=== PATIENT | female | born 1980 | race Hispanic/Latino ===

== ENCOUNTER 2017-09-09 10:42 | Emergency (ER) | payer OTHER, SELFPAY ==
--- NOTE | 2017-09-09 11:15 | RAD REPORT ---
EXAM DESCRIPTION: RAD - Chest Single View - 09/09/2017 11:10 am CLINICAL HISTORY: Syncope, shortness of breath COMPARISON: April 2017 TECHNIQUE: AP portable chest image was obtained 1103 hours . FINDINGS: Lungs are clear. Heart and vasculature are normal. No measurable pleural effusion and no p neumothorax. No gross bony abnormality seen. No acute aortic findings suspected. IMPRESSION: No acute cardiopulmonary process. No change from prior imaging.
[2017-09-09] MEDS ORDERED: NA CHLORIDE 0.9% 500 ML ONE (11:26)
[2017-09-09 11:35] LABS: Absolute Lymphocytes (CBC) 2.1 K/uL (0.7-4.9); Absolute Monocytes 0.6 K/uL (0.1-1.3); Absolute Neutrophil 5.1 K/uL (1.8-8.0); Basophils % 0.3 % (0-1.3); Eosinophils % 3.5 % (0-4.4); Hematocrit 33.8 % (36.0-45.0); Lymphocytes % 26.3 % (15.3-44.8); MCH 27.7 pg (27.0-35.0); MPV 8.2 fL (7.6-11.3); Monocytes % 6.9 % (3.3-12.3); RBC Red Blood Cell Count 4.02 M/uL (3.86-4.86)
[2017-09-09 11:57] LABS: Glucose Level 93 mg/dL (65-120)
[2017-09-09 11:58] LABS: BUN Blood Urea Nitrogen 8 mg/dL (6-20); Glomerular Filtration Rate > 90 mL/min (=/>90)
[2017-09-09 12:12] LABS: Bicarbonate 25 mEq/L (21-31); Potassium 4.1 mEq/L (3.6-5.0); Sodium Level 136 mEq/L (135-145)
[2017-09-09] MEDS ORDERED: DIAZEPAM 2 MG TABLET ONE (12:27)
--- NOTE | 2017-09-09 12:40 | RAD REPORT ---
EXAM DESCRIPTION: CT - Chest For Pe Angio - 09/09/2017 12:26 pm CLINICAL HISTORY: Syncope, chest pain, shortness of breath COMPARISON: Chest films same date, PE study March 2017 TECHNIQUE: Dynamically enhanced 3 mm thick images of the chest were obtained during administration o f approximately 150mL Isovue 370 IV contrast. Coronal and oblique reconstruction images were generate d and reviewed. Exam utilizes a protocol to evaluate the pulmonary arterial tree. All CT scans are performed using dose optimization technique as appropriate and may include automated exposure control or mA/KV adjustment according to patient size. FINDINGS: No pulmonary emboli are identified. Respiratory motion degradation limits far peripheral b ranch assessment. The aorta as imaged shows no acute or suspicious finding. No pericardial thickening or effusion. No peripheral consolidation. In the lateral gutter on the right there is a 9 millimeter nodular densi ty unchanged from March. This is likely scarring. Size is accentuated by motion. No pleural effusi on or pleural thickening. No mediastinal or hilar suspicious masses. No chest wall masses or abnormal axillary lymphadenopathy. IMPRESSION: No pulmonary emboli identified. Far peripheral branch assessment is limited due to motio n artifact. No peripheral mass or consolidation. Lung base interstitial markings are accentuated by motion. Approximately 9 millimeter nodule lateral gutter on the right is unchanged from March.This may be simply scarring or atelectasis. Malignancy would be uncommon in a patient this age. This can be monit ored with follow-up examination in 3-6 months.
[2017-09-09 13:17] LABS: Blood Morphology Comment NOT SEEN (NOT SEEN); Platelet Estimate ADEQ
--- NOTE | 2017-09-09 13:51 | EDPHYS ---
Physician Documentation [facility] Name: Ngozi Bear Age: 37 yrs Sex: Female : 1980 Arrival Date: 09/09/2017 Time: 10:43 Bed 16 Private MD: ED Physician Robin Cota HPI: 09/09 10:54 This 37 yrs old Female presents to ER via EMS with complaints of Near Syncope. rn 10:54 The patient has experienced near-syncope. Onset: The symptoms/episode began/occurred rn just prior to arrival. Duration: This was a single episode, that lasted 5 minute(s). Associated injury: The patient did not suffer any apparent associated injury. Current symptoms: Currently, the patient is not experiencing any symptoms. The patient has experienced similar episodes in the past. Reports hx of anxiety, today, went to work, felt fine, had bowel movement, felt sweaty, was standing and felt lightheaded, didn't completely pass out, feels better now, no chest pain/sob. Feels somewhat similar to previous anxiety episodes. NO abd pain. Mild pressure in back of head but no focal neurological complaints. . 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 - Family history:: not pertinent. - Social history:: Smoking status: Patient/guardian denies using tobacco. - Hospitalizations: : No recent hospitalization is reported. ROS: 10:54 Constitutional: Negative for fever, chills, and weight loss, Eyes: Negative for injury, rn pain, redness, and discharge, Neck: Negative for injury, pain, and swelling, Cardiovascular: Negative for chest pain, palpitations, and edema, Respiratory: Negative for shortness of breath, cough, wheezing, and pleuritic chest pain, Abdomen/GI: Negative for abdominal pain, nausea, vomiting, diarrhea, and constipation, Back: Negative for injury and pain, MS/Extremity: Negative for injury and deformity, Skin: Negative for injury, rash, and discoloration, Neuro: Negative for weakness, and seizure, + tingling of hands/feet Exam: 10:54 Constitutional: This is a well developed, well nourished patient who is awake, alert, rn and in no acute distress. Head/Face: Normocephalic, atraumatic. Eyes: Pupils equal round and reactive to light, extra-ocular motions intact. Lids and lashes normal. Conjunctiva and sclera are non-icteric and not injected. Cornea within normal limits. Periorbital areas with no swelling, redness, or edema. Neck: Trachea midline, no thyromegaly or masses palpated, and no cervical lymphadenopathy. Supple, full range of motion without nuchal rigidity, or vertebral point tenderness. No Meningismus. Cardiovascular: Regular rate and rhythm with a normal S1 and S2. No gallops, murmurs, or rubs. Normal PMI, no JVD. No pulse deficits. Respiratory: Lungs have equal breath sounds bilaterally, clear to auscultation and percussion. No rales, rhonchi or wheezes noted. No increased work of breathing, no retractions or nasal flaring. Abdomen/GI: Soft, non-tender, with normal bowel sounds. No distension or tympany. No guarding or rebound. No evidence of tenderness throughout. MS/ Extremity: Pulses equal, no cyanosis. Neurovascular intact. Full, normal range of motion. Equal circumference. Neuro: Awake and alert, GCS 15, oriented to person, place, time, and situation. Cranial nerves II-XII grossly intact. Motor strength 5/5 in all extremities. Sensory grossly intact. Cerebellar exam normal. 11:32 ECG was reviewed by the Attending Physician. rn Vital Signs: 10:49 BP 157 / 96; Pulse 84; Resp 20 S; Temp 98.5(TE); Pulse Ox 97% on R/A; aj1 11:24 BP 158 / 88; Pulse 102; Resp 20; Pulse Ox 99% on R/A; rb1 12:20 BP 156 / 87; Pulse 92; Resp 18; Pulse Ox 99% on R/A; rb1 13:17 BP 154 / 83; Pulse 84; Resp 19; Pulse Ox 100% on R/A; rb1 MDM: 10:45 Patient medically screened. snw 13:48 Differential Diagnosis: cardiac arrhythmia, emotional response, vasovagal episode, rn anxiety, hyperventilation, PE, anemia, dehydration. Data reviewed: vital signs, nurses notes, lab test result(s), EKG, radiologic studies, CT scan, plain films, and as a result, I will discharge patient. Counseling: I had a detailed discussion with the patient and/or guardian regarding: the historical points, exam findings, and any diagnostic results supporting the discharge/admit diagnosis, lab results, radiology results, the need for outpatient follow up, to return to the emergency department if symptoms worsen or persist or if there are any questions or concerns that arise at home. Response to treatment: the patient's symptoms have resolved after treatment, the patient's condition has returned to base line, the patient is now symptom free, patient is well hydrated. and as a result, I will discharge patient. Special discussion: I discussed with the patient/guardian in detail that at this point there is no indication for admission to the hospital. It is understood, however, that if the symptoms persist or worsen the patient needs to return immediately for re-evaluation. ED course: W/u negative, recommended outpt pcp and cardiology f/u with inverted t waves anterior leads, CT PE performed which was negative, had incidental finding of nodule, unchanged, trop neg. . 09/09 10:49 Order name: Urine Microscopic Only rn 09/09 10:49 Order name: Basic Metabolic Panel; Complete Time: 12:25 rn 09/09 10:49 Order name: CBC with Diff; Complete Time: 13:43 rn 09/09 10:49 Order name: Troponin (emerg Dept Use Only); Complete Time: 12:25 rn 09/09 10:49 Order name: XRAY Chest (1 view); Complete Time: 11:17 rn 09/09 13:18 Order name: Manual Differential; Complete Time: 13:43 EDMS 09/09 10:49 Order name: EKG; Complete Time: 10:49 rn 09/09 10:49 Order name: Cardiac monitoring; Complete Time: 11:42 rn 09/09 10:49 Order name: EKG - Nurse/Tech; Complete Time: 11:42 rn 09/09 10:49 Order name: IV Saline Lock; Complete Time: 11:42 rn 09/09 11:32 Order name: CT Chest For PE Angio; Complete Time: 12:40 rn 09/09 10:49 Order name: Labs collected and sent; Complete Time: :42 rn 09/09 10:49 Order name: NPO; Complete Time: : rn 09/09 10:49 Order name: O2 Per Protocol; Complete Time: rn 09/09 10:49 Order name: O2 Sat Monitoring; Complete Time: 11:42 rn EC:32 Rate is 80 beats/min. Rhythm is regular. QRS Staples is Normal. ID interval is normal. QRS rn interval is normal. QT interval is normal. No Q waves. T waves are Inverted in leads V1, V2, V3. No ST changes noted. Clinical impression: NSR w/ Non-specific ST/T Changes. Interpreted by me. Administered Medications: 11:30 Drug: NS 0.9% 500 ml Route: IV; Rate: bolus; Site: right antecubital; rb1 12:33 Drug: Valium 2 mg Route: PO; rb1 Disposition: 09/09/17 13:50 Discharged to Home. Impression: Hyperventilation, Near Syncope. - Condition is Stable. - Discharge Instructions: Hyperventilation, Near-Syncope. - Medication Reconciliation Form, Thank You Letter, Antibiotic Education, Prescription Opioid Use form. - Follow up: Private Physician; When: As needed; Reason: Recheck today's complaints, Re-evaluation by your physician. - Problem is new. - Symptoms have improved. Signatures: Dispatcher [employer] Hailey Landry RN RN aj1 Rena Yung, TRAIN RESERVATION CLERK-C TRAIN RESERVATION CLERK-Csnw Robin Cota MD MD rn Barber, Rebecca, RN RN rb1
--- NOTE | 2017-09-09 13:51 | ER ---
Nurse's Notes [facility] Name: Ngozi Bear Age: 37 yrs Sex: Female : 1980 Arrival Date: 09/09/2017 Time: 10:43 Bed 16 Private MD: Diagnosis: Hyperventilation;Near Syncope Presentation: 09/09 10:44 Presenting complaint: Patient states: I was at work and I suddenly started sweating and aj1 seeing murdock and I told my coworker that I didn't feel good and I was going to pass out. They sat me down in a chair and put cold rags on me. I felt like passing out and I couldn't breathe. Patient reports dizziness, anxiousness, chest tightness, epigastric pain and a feeling of "heaviness" in the back of her head. Denies syncope, palpitations. Breath sounds CTA. Transition of care: patient was not received from another setting of care. Onset of symptoms was September 09, 2017. Initial Sepsis Screen: Does the patient meet any 2 criteria? No. Patient's initial sepsis screen is negative. Does the patient have a suspected source of infection? No. Patient initial sepsis screen negative. Care prior to arrival: IV initiated. 20 GA, in the right forearm, Glucose check: 151. 10:44 Method Of Arrival: EMS: [facility] aj1 10:44 Acuity: ALEXIA 3 aj1 Triage Assessment: 10:49 General: Appears in no apparent distress. uncomfortable, Behavior is cooperative, aj1 anxious. Pain: Complains of pain in occipital area, diaphragm, left breast and epigastric area Pain does not radiate. Quality of pain is described as tightness, heaviness. Neuro: Level of Consciousness is awake, alert, obeys commands, Oriented to person, place, time, situation, Moves all extremities. Full function Speech is normal, Facial symmetry appears normal, Reports dizziness, headache occipital area, Denies syncope. Cardiovascular: Heart tones S1 S2 present Patient's skin is warm and dry. Rhythm is regular Chest pain quality is tightness is located in left chest wall epigastric area. Respiratory: Airway is patent Respiratory effort is even, unlabored, Respiratory pattern is regular, symmetrical. 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 - Family history:: not pertinent. - Social history:: Smoking status: Patient/guardian denies using tobacco. - Hospitalizations: : No recent hospitalization is reported. Screenin:45 Abuse screen: Denies threats or abuse. Nutritional screening: No deficits noted. rb1 Tuberculosis screening: No symptoms or risk factors identified. Fall Risk None identified. Assessment: 10:45 General: Appears in no apparent distress. comfortable, obese, Behavior is calm, rb1 cooperative. Pain: Complains of pain in chest Pain currently is 8 out of 10 on a pain scale. Neuro: Level of Consciousness is awake, alert, obeys commands, Oriented to person, place, time, situation. Cardiovascular: Capillary refill < 3 seconds is brisk in bilateral fingers. Respiratory: Airway is patent Respiratory effort is even, unlabored, Respiratory pattern is regular, symmetrical. GI: Reports nausea. : No signs and/or symptoms were reported regarding the genitourinary system. Derm: Skin is pink, warm \\T\\ dry. 11:55 Reassessment: Pyxis drawer failed to open when I tried to remove the Valium. Pharmacy rb1 was contacted. 12:15 Reassessment: Pharmacy is working on the Pyxis so I can get the pt. Valium. rb1 12:33 Reassessment: Patient appears in no apparent distress at this time. Patient and/or rb1 family updated on plan of care and expected duration. Pain level reassessed. Patient is alert, oriented x 3, equal unlabored respirations, skin warm/dry/pink. Vital Signs: 10:49 BP 157 / 96; Pulse 84; Resp 20 S; Temp 98.5(TE); Pulse Ox 97% on R/A; aj1 11:24 BP 158 / 88; Pulse 102; Resp 20; Pulse Ox 99% on R/A; rb1 12:20 BP 156 / 87; Pulse 92; Resp 18; Pulse Ox 99% on R/A; rb1 13:17 BP 154 / 83; Pulse 84; Resp 19; Pulse Ox 100% on R/A; rb1 ED Course: 10:43 Patient arrived in ED. aj1 10:45 Rena Yung FNP-C is [facility]. snw 10:45 Robin Cota MD is Attending Physician. snw 10:45 Patient has correct armband on for positive identification. Bed in low position. Call rb1 light in reach. Side rails up X 1. potline monitor on. Pulse ox on. NIBP on. 10:45 Maintain EMS IV. Dressing intact. Good blood return noted. Site clean \\T\\ dry. Gauge \\T\\ rb 1 site: 20 g right AC. 10:47 Triage completed. aj1 10:49 Arm band placed on. aj1 11:10 XRAY Chest (1 view) In Process Unspecified. EDMS 11:19 Christine Mercedes, RN is Primary Nurse. rb1 11:23 EKG done, by technical assoc. reviewed by Robin Cota MD. 12:25 CT completed. Patient tolerated procedure well. Patient moved to CT via stretcher. Patient moved back from CT. 12:26 CT Chest For PE Angio In Process Unspecified. EDMS 14:10 No provider procedures requiring assistance completed. IV discontinued, intact, rb1 bleeding controlled, No redness/swelling at site. Pressure dressing applied. Administered Medications: 11:30 Drug: NS 0.9% 500 ml Route: IV; Rate: bolus; Site: right antecubital; rb1 12:33 Drug: Valium 2 mg Route: PO; rb1 Outcome: 13:50 Discharge ordered by MD. rn 14:10 Patient left the ED. rb1 14:10 Discharged to home ambulatory. rb1 14:10 Condition: stable 14:10 Discharge instructions given to patient, Instructed on discharge instructions, follow up and referral plans. Demonstrated understanding of instructions, follow-up care, Prescriptions given X none Signatures: Dispatcher [employer] EDMS Hailey Lutz RN RN aj1 Rena Yung FNP-C FNP-Ebony Vasquez Roman, MD MD rn Harrell, [facility] Christine Mercedes RN RN rb1
[2017-09-09 14:14] VITALS: TEMP 98.5
[2017-09-09 14:15] VITALS: BP 158/88; O2SAT 99
[2017-09-09 14:59] LABS: Urine Specific Gravity <1.005 (1.005-1.030)
[2017-09-09 15:11] LABS: Urine Blood NEGATIVE (NEG); Urine Glucose NEGATIVE (NEG); Urine Protein NEGATIVE (NEG); Urine Specific Gravity <1.005 (1.005-1.030); Urine pH 5.5 (5.0-7.0)
[2017-09-09 15:13] LABS: Urine Bacteria <20 /HPF (<20); Urine Culture Reflex Order NOT NEEDED; Urine Mucus NS /HPF (NONE SEEN); Urine RBC <5 /HPF (NONE SEEN)
--- NOTE | 2017-09-09 16:27 | EKG ---
Test Date: 2017-09-09 Test Time: 11:36:48 Deputy County Clerk: MERARI MEASUREMENT RESULTS: Intervals: Rate: 104 FL: 140 QRSD: 84 QT: 368 QTc: 483 [place]: P: 56 FL: 140 QRS: 41 T: -3 INTERPRETIVE STATEMENTS: Sinus tachycardia ST & T wave abnormality, consider anterior ischemia Abnormal ECG Electronically Signed On 09-09-17 16:27:01 CDT by Roger Orellana
--- NOTE | 2017-09-09 16:28 | EKG ---
Test Date: 2017-09-09 Test Time: 11:17:12 Roller Inspector: JASON MEASUREMENT RESULTS: Intervals: Rate: 80 TX: 128 QRSD: 84 QT: 398 QTc: 459 [place]: P: 14 TX: 128 QRS: 17 T: 3 INTERPRETIVE STATEMENTS: Normal sinus rhythm ST & T wave abnormality, consider anterior ischemia Abnormal ECG Compared to ECG 05/18/2017 13:01:15 ST (T wave) deviation now present T-wave abnormality no longer present Prolonged QT interval no longer present Possible ischemia still present Electronically Signed On 09-09-17 16:27:32 CDT by Roger Orellana
== END 2017-09-09 14:10 | disposition home or self-care (01) ==
LOC: ER 10:42
DX: R06.4 Hyperventilation (principal); F41.9 Anxiety disorder, unspecified; F32.9 Major depressive disorder, single episode, unspecified; I10 Essential (primary) hypertension
CPT/HCPCS: 36415; 71045; 71275; 80048; 81003; 81015; 81025; 84484; 85025; 93005; 99285; Q9967

== ENCOUNTER 2018-04-04 14:25 | Emergency (ER) | payer OTHER ==
[2018-04-04 15:32] LABS: Absolute Lymphocytes (CBC) 1.3 K/uL (0.7-4.9); Absolute Monocytes 0.6 K/uL (0.1-1.3); Absolute Neutrophil 5.3 K/uL (1.8-8.0); Basophils % 0.4 % (0-1.3); Eosinophils % 3.1 % (0-4.4); Lymphocytes % 17.3 % (15.3-44.8); MCH 27.4 pg (27.0-35.0); MCV 83.2 fL (80-100); MPV 8.2 fL (7.6-11.3); Monocytes % 7.8 % (3.3-12.3); RBC Red Blood Cell Count 4.21 M/uL (3.86-4.86)
[2018-04-04 15:35] LABS: Protime INR 1.03
--- NOTE | 2018-04-04 15:38 | RAD REPORT ---
EXAM DESCRIPTION: [place] Single View04/04/2018 3:24 pm CLINICAL HISTORY: Chest pain COMPARISON: none FINDINGS: The lungs appear clear of acute infiltrate. The heart is borderline enlarged IMPRESSION: No acute abnormalities displayed
[2018-04-04 15:48] LABS: ALT/SGPT 107 U/L (12-78); AST/SGOT 89 U/L (15-37); Albumin 3.6 g/dL (3.4-5.0); Alkaline Phosphatase 102 U/L (45-117); BUN Blood Urea Nitrogen 9 mg/dL (7-18); Bicarbonate 24 mmol/L (21-32); Bilirubin Direct < 0.1 mg/dL (0-0.2); Bilirubin Total 0.2 mg/dL (0.2-1.0); Glucose Level 135 mg/dL (74-106); Magnesium 2.2 mg/dL (1.8-2.4); NT PRO-BNP 37 pg/mL (<125); Potassium 3.5 mmol/L (3.5-5.1); Protein, Total 8.6 g/dL (6.4-8.2); Sodium Level 136 mmol/L (136-145); Troponin (Emerg Dept Use Only) 0.03 ng/mL (0.0-0.045)
[2018-04-04] MEDS ORDERED: LORazepam 2 MG/ML VIAL ONE (16:17)
[2018-04-04] MEDS ORDERED: KETOROLAC 30 MG/ML INJ ONE (16:38)
--- NOTE | 2018-04-04 17:50 | EDPHYS ---
Physician Documentation [facility] Name: Ngozi Bear Age: 37 yrs Sex: Female : 1980 Arrival Date: 04/04/2018 Time: 14:28 Bed 30 Private MD: ED Physician Adolfo Koroma HPI: 04/04 16:23 This 37 yrs old Female presents to ER via Ambulatory with complaints of Chest jr8 Pain. 16:23 The patient or guardian reports chest pain that is located primarily in the substernal jr8 area. The pain radiates to the left arm. Associated signs and symptoms: Pertinent positives: None. The chest pain is described as a pressure. Duration: The patient or guardian reports multiple episodes, that are intermittent, that wax and wane. Modifying factors: The symptoms are alleviated by nothing. the symptoms are aggravated by nothing. Severity of pain: At its worst the pain was moderate in the emergency department the pain has improved. The patient has not experienced similar symptoms in the past. The patient has not recently seen a physician. Stated that she was watering and started to have chest tightness, hot flashes, and anxiety feeling. Stated that she has had panic attacks in past but were never this bad . 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 - Social history:: Smoking status: Patient/guardian denies using tobacco. - Ebola Screening: : No symptoms or risks identified at this time. ROS: 16:23 Eyes: Negative for injury, pain, redness, and discharge, ENT: Negative for injury, jr8 pain, and discharge, Neck: Negative for injury, pain, and swelling, Respiratory: Negative for shortness of breath, cough, wheezing, and pleuritic chest pain, Abdomen/GI: Negative for abdominal pain, nausea, vomiting, diarrhea, and constipation, Back: Negative for injury and pain, MS/Extremity: Negative for injury and deformity, Skin: Negative for injury, rash, and discoloration, Neuro: Negative for headache, weakness, numbness, tingling, and seizure. 16:23 Cardiovascular: Positive for chest pain. Exam: 16:23 Eyes: Pupils equal round and reactive to light, extra-ocular motions intact. Lids and jr8 lashes normal. Conjunctiva and sclera are non-icteric and not injected. Cornea within normal limits. Periorbital areas with no swelling, redness, or edema. ENT: Nares patent. No nasal discharge, no septal abnormalities noted. Tympanic membranes are normal and external auditory canals are clear. Oropharynx with no redness, swelling, or masses, exudates, or evidence of obstruction, uvula midline. Mucous membranes moist. Neck: Trachea midline, no thyromegaly or masses palpated, and no cervical lymphadenopathy. Supple, full range of motion without nuchal rigidity, or vertebral point tenderness. No Meningismus. Chest/axilla: Normal chest wall appearance and motion. Nontender with no deformity. No lesions are appreciated. Cardiovascular: Regular rate and rhythm with a normal S1 and S2. No gallops, murmurs, or rubs. Normal PMI, no JVD. No pulse deficits. Respiratory: Lungs have equal breath sounds bilaterally, clear to auscultation and percussion. No rales, rhonchi or wheezes noted. No increased work of breathing, no retractions or nasal flaring. Abdomen/GI: Soft, non-tender, with normal bowel sounds. No distension or tympany. No guarding or rebound. No evidence of tenderness throughout. Back: No spinal tenderness. No costovertebral tenderness. Full range of motion. Skin: Warm, dry with normal turgor. Normal color with no rashes, no lesions, and no evidence of cellulitis. MS/ Extremity: Pulses equal, no cyanosis. Neurovascular intact. Full, normal range of motion. Neuro: Awake and alert, GCS 15, oriented to person, place, time, and situation. Cranial nerves II-XII grossly intact. Motor strength 5/5 in all extremities. Sensory grossly intact. Cerebellar exam normal. Normal gait. Vital Signs: 14:45 BP 152 / 75; Pulse 86; Resp 18 S; Temp 99.3(O); Pulse Ox 98% on R/A; Weight 90.72 kg aa5 (R); Height 4 ft. 11 in. (149.86 cm) (R); Pain 7/10; 16:17 BP 136 / 74; Pulse 79; Resp 18; Pulse Ox 98% on R/A; Pain 2/10; mg2 17:37 BP 123 / 63; Pulse 80; Resp 18; Pulse Ox 100% 0 lpm ; Pain 0/10; mg2 18:05 BP 114 / 60; Pulse 81; Resp 18; Pulse Ox 98% on R/A; Pain 0/10; mg2 14:45 Body Mass Index 40.39 (90.72 kg, 149.86 cm) aa5 MDM: 14:49 Patient medically screened. jr8 17:47 Data reviewed: vital signs, nurses notes, lab test result(s), EKG, radiologic studies, jr8 plain films. Data interpreted: Pulse oximetry: on room air is 100 %. Interpretation: normal. 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 ED course: After Ativan and Toradol. Patient has complete resolution of symptoms. Second Troponin negative. Still needs to f/u with cardiology because of her chest X-ray and EKG. Patient good with this and will call on Friday for next appointment. Would come back if worse . 04/04 14:59 Order name: Basic Metabolic Panel; Complete Time: 15:48 04/04 14:59 Order name: CBC with Diff; Complete Time: 16:27 04/04 14:59 Order name: LFT's; Complete Time: 15:48 04/04 14:59 Order name: Magnesium; Complete Time: 15:48 04/04 14:59 Order name: NT PRO-BNP; Complete Time: 15:48 04/04 14:59 Order name: PT-INR; Complete Time: 15:49 04/04 14:59 Order name: Troponin (emerg Dept Use Only); Complete Time: 15:48 04/04 14:59 Order name: XRAY Chest (1 view); Complete Time: 15:47 04/04 14:59 Order name: EKG; Complete Time: 15:00 04/04 14:59 Order name: ESR; Complete Time: 16:27 04/04 14:59 Order name: DD; Complete Time: 15:49 04/04 16:48 Order name: Troponin (emerg Dept Use Only); Complete Time: 17:47 04/04 14:59 Order name: Cardiac monitoring; Complete Time: 15:04/04 14:59 Order name: EKG - Nurse/Tech; Complete Time: 15:04/04 14:59 Order name: IV Saline Lock; Complete Time: 15:04/04 14:59 Order name: Labs collected and sent; Complete Time: 15:04/04 14:59 Order name: O2 Per Protocol; Complete Time: 15:04/04 14:59 Order name: O2 Sat Monitoring; Complete Time: 15: Administered Medications: 16:19 Drug: Ativan 1 mg Route: IVP; Site: right antecubital; mg2 16:53 Follow up: Response: No adverse reaction; Marked relief of symptoms mg2 16:31 Drug: TORadol 30 mg Route: IVP; Site: right antecubital; mg2 16:53 Follow up: Response: No adverse reaction; Marked relief of symptoms mg2 Disposition: 04/05 11:44 Co-signature as Attending Physician, Adolfo Koroma MD. Disposition: 04/04/18 17:49 Discharged to Home. Impression: Chest pain, unspecified. - Condition is Stable. - Discharge Instructions: Nonspecific Chest Pain. - Medication Reconciliation Form, Thank You Letter, Antibiotic Education, Prescription Opioid Use, Family Work Release form. - Follow up: Roger Orellana MD; When: 1 - 2 days; Reason: Recheck today's complaints, Continuance of care, Re-evaluation by your physician. - Problem is new. - Symptoms have improved. Signatures: Dispatcher [employer] Suzan Martini, RN RN aa5 Chon Lei PA PA jr8 Adolfo Koroma MD MD Caleb Nielson RN RN mg2 Corrections: (The following items were deleted from the chart) 04/04 18:06 17:49 04/04/2018 17:49 Discharged to Home. Impression: Chest pain, unspecified. mg2 Condition is Stable. Forms are Medication Reconciliation Form, Thank You Letter, Antibiotic Education, Prescription Opioid Use. Follow up: Roger Orellana; When: 1 - 2 days; Reason: Recheck today's complaints, Continuance of care, Re-evaluation by your physician. Problem is new. Symptoms have improved. jr8
--- NOTE | 2018-04-04 17:50 | ER ---
Nurse's Notes [facility] Name: Ngozi Bear Age: 37 yrs Sex: Female : 1980 Arrival Date: 04/04/2018 Time: 14:28 Bed 30 Private MD: Diagnosis: Chest pain, unspecified Presentation: 04/04 14:43 Presenting complaint: Patient states: mid-sternal chest pain that began today. Pt also aa5 reports SOB and nausea. Pt denies cough. Transition of care: patient was not received from another setting of care. Onset of symptoms was April 04, 2018. Risk Assessment: Do you want to hurt yourself or someone else? Patient reports no desire to harm self or others. Initial Sepsis Screen: Does the patient meet any 2 criteria? No. Patient's initial sepsis screen is negative. Does the patient have a suspected source of infection? No. Patient's initial sepsis screen is negative. Care prior to arrival: None. 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 - Social history:: Smoking status: Patient/guardian denies using tobacco. - Ebola Screening: : No symptoms or risks identified at this time. Screenin:03 Abuse screen: Denies threats or abuse. Denies injuries from another. Nutritional mg2 screening: No deficits noted. Tuberculosis screening: No symptoms or risk factors identified. Fall Risk IV access (20 points). Assessment: 15:02 General: Appears in no apparent distress. comfortable, Behavior is calm, cooperative. mg2 Pain: Complains of pain in epgastric, Pain radiates to chest and left arm Pain currently is 6 out of 10 on a pain scale. Quality of pain is described as aching, Pain began gradually, 2 hours ago. Is intermittent. Neuro: Level of Consciousness is awake, alert, obeys commands, Oriented to person, place, time, situation. Neuro: Reports dizziness. Cardiovascular: Capillary refill < 3 seconds Patient's skin is warm and dry. Respiratory: Reports shortness of breath at rest Airway is patent Respiratory effort is even, unlabored, Respiratory pattern is regular, symmetrical. GI: No signs and/or symptoms were reported involving the gastrointestinal system. : No signs and/or symptoms were reported regarding the genitourinary system. EENT: No signs and/or symptoms were reported regarding the EENT system. Derm: Skin is intact, is healthy with good turgor, Skin is pink, warm \T\ dry. normal. Musculoskeletal: No signs and/or symptoms reported regarding the musculoskeletal system. 16:18 Reassessment: Patient appears in no apparent distress at this time. Patient and/or mg2 family updated on plan of care and expected duration. Pain level reassessed. Patient is alert, oriented x 3, equal unlabored respirations, skin warm/dry/pink. 17:38 Reassessment: Patient appears in no apparent distress at this time. Patient and/or mg2 family updated on plan of care and expected duration. Pain level reassessed. Patient is alert, oriented x 3, equal unlabored respirations, skin warm/dry/pink. Vital Signs: 14:45 BP 152 / 75; Pulse 86; Resp 18 S; Temp 99.3(O); Pulse Ox 98% on R/A; Weight 90.72 kg aa5 (R); Height 4 ft. 11 in. (149.86 cm) (R); Pain 7/10; 16:17 BP 136 / 74; Pulse 79; Resp 18; Pulse Ox 98% on R/A; Pain 2/10; mg2 17:37 BP 123 / 63; Pulse 80; Resp 18; Pulse Ox 100% 0 lpm ; Pain 0/10; mg2 18:05 BP 114 / 60; Pulse 81; Resp 18; Pulse Ox 98% on R/A; Pain 0/10; mg2 14:45 Body Mass Index 40.39 (90.72 kg, 149.86 cm) aa5 ED Course: 14:28 Patient arrived in ED. rg4 14:43 Arm band placed on. aa5 14:44 Triage completed. aa5 14:47 Caleb Nielson, RN is Primary Nurse. mg2 14:49 Rizwan Houston NP is PHCP. pm1 14:49 Adolfo Koroma MD is Attending Physician. pm1 14:49 Chon Lei PA is PHCP. jr8 15:04 Patient has correct armband on for positive identification. behavioral health aide on. Pulse mg2 ox on. NIBP on. 15:04 No provider procedures requiring assistance completed. Inserted saline lock: 20 gauge mg2 in right antecubital area, using aseptic technique. Blood collected. Patient maintains SpO2 saturation greater than 95% on room air. 15:18 X-ray completed. Portable x-ray completed in exam room. Patient tolerated procedure jb2 well. 15:23 XRAY Chest (1 view) In Process Unspecified. EDMS 17:49 Roger Orellana MD is Referral Physician. jr8 18:06 IV discontinued, intact, bleeding controlled, No redness/swelling at site. Pressure mg2 dressing applied. Administered Medications: 16:19 Drug: Ativan 1 mg Route: IVP; Site: right antecubital; mg2 16:53 Follow up: Response: No adverse reaction; Marked relief of symptoms mg2 16:31 Drug: TORadol 30 mg Route: IVP; Site: right antecubital; mg2 16:53 Follow up: Response: No adverse reaction; Marked relief of symptoms mg2 Outcome: 17:49 Discharge ordered by . jr8 18:06 Discharged to home ambulatory, with family. mg2 18:06 Condition: stable 18:06 Discharge instructions given to patient, family, Instructed on discharge instructions, follow up and referral plans. Demonstrated understanding of instructions, follow-up care. 18:06 Patient left the ED. mg2 Signatures: Dispatcher [employer] EDWA Shailesh Justice jb2 Suzan Weinstein, RN RN aa5 Chon Lei PA PA jr8 Rizwan Houston NP EQUIPMENT MECHANIC SPECIALIST pm1 [place] 4 Caleb Nielson RN RN mg2
[2018-04-04 18:32] VITALS: TEMP 99.3
[2018-04-04 18:36] VITALS: BP 114/60; O2SAT 98
--- NOTE | 2018-04-06 07:07 | EKG ---
Test Date: 2018-04-04 Test Time: 14:54:18 Web Retailer: MG MEASUREMENT RESULTS: Intervals: Rate: 85 WI: 152 QRSD: 88 QT: 398 QTc: 473 [place]: P: 53 WI: 152 QRS: 21 T: -1 INTERPRETIVE STATEMENTS: Normal sinus rhythm Possible Left atrial enlargement T wave abnormality, consider anterior ischemia Prolonged QT Abnormal ECG Compared to ECG 09/09/2017 11:36:48 T-wave abnormality now present Prolonged QT interval now present Sinus tachycardia no longer present ST (T wave) deviation no longer present Possible ischemia still present Electronically Signed On 04-06-18 07:03:52 REFINERY TECHNICIAN by Julio C Cartwright
== END 2018-04-04 18:06 | disposition home or self-care (01) ==
LOC: ER 14:25
DX: R07.9 Chest pain, unspecified (principal); R94.31 Abnormal electrocardiogram [ECG] [EKG]; F41.9 Anxiety disorder, unspecified; F32.9 Major depressive disorder, single episode, unspecified; I10 Essential (primary) hypertension; Z79.899 Other long term (current) drug therapy
CPT/HCPCS: 36415; 71045; 80048; 80076; 83735; 83880; 84484; 85025; 85379; 85610; 85652; 93005; 96374; 96375; 99285

== ENCOUNTER 2018-05-12 20:29 | Observation (INO) | payer OTHER ==
[2018-05-12] MEDS ORDERED: PANTOPRAZOLE 40 MG INJ ONE (23:13)
[2018-05-12] MEDS ORDERED: PANTOPRAZOLE 40MG TABLET PO ONE (23:14)
[2018-05-12 23:39] LABS: BUN Blood Urea Nitrogen 10 mg/dL (7-18); Bicarbonate 26 mmol/L (21-32); Glucose Level 113 mg/dL (74-106); Potassium 3.3 mmol/L (3.5-5.1); Sodium Level 136 mmol/L (136-145); Troponin (Emerg Dept Use Only) 0.04 ng/mL (0.0-0.045)
[2018-05-12 23:49] LABS: Absolute Lymphocytes (CBC) 2.6 K/uL (0.7-4.9); Absolute Monocytes 0.6 K/uL (0.1-1.3); Absolute Neutrophil 6.3 K/uL (1.8-8.0); Basophils % 0.4 % (0-1.3); Eosinophils % 2.4 % (0-4.4); Hematocrit 34.1 % (36.0-45.0); Lymphocytes % 26.7 % (15.3-44.8); MPV 8.1 fL (7.6-11.3); Monocytes % 6.3 % (3.3-12.3); RBC Red Blood Cell Count 4.04 M/uL (3.86-4.86)
--- NOTE | 2018-05-13 00:28 | ER ---
Nurse's Notes [facility] Name: Ngozi Bear Age: 38 yrs Sex: Female : 1980 Arrival Date: 05/12/2018 Time: 20:30 Bed 19 Private MD: Diagnosis: Chest pain, unspecified Presentation: 05/12 21:22 Presenting complaint: Patient states: dry cough x 2 days and reports now she is having aa1 pain in her chest when she coughs. Denies fever. States, "And when I walk now I get dizzy.". Transition of care: patient was not received from another setting of care. Onset of symptoms was May 10, 2018. Risk Assessment: Do you want to hurt yourself or someone else? Patient reports no desire to harm self or others. Initial Sepsis Screen: Does the patient meet any 2 criteria? No. Patient's initial sepsis screen is negative. Does the patient have a suspected source of infection? No. Patient's initial sepsis screen is negative. Care prior to arrival: None. 21:22 Method Of Arrival: Ambulatory aa1 21:22 Acuity: ALEXIA 3 aa1 Triage Assessment: 21:24 General: Appears in no apparent distress. comfortable, Behavior is calm, cooperative, aa1 appropriate for age. 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 - Social history:: Smoking status: Patient/guardian denies using tobacco. - Ebola Screening: : Patient denies exposure to infectious person Patient denies travel to an Ebola-affected area in the 21 days before illness onset. Screenin:24 Abuse screen: Denies threats or abuse. Denies injuries from another. Nutritional mg2 screening: No deficits noted. Tuberculosis screening: No symptoms or risk factors identified. Fall Risk None identified. Assessment: 22:21 General: Appears in no apparent distress. comfortable, Behavior is calm, cooperative. mg2 Pain: Complains of pain in chest Pain does not radiate. Pain currently is 3 out of 10 on a pain scale. Quality of pain is described as aching, Pain began gradually, since 2 pm Is intermittent. Neuro: Level of Consciousness is awake, alert, obeys commands, Oriented to person, place, time, situation. Cardiovascular: Capillary refill < 3 seconds Patient's skin is warm and dry. Chest pain is described as mild, Pain is 3 out of 10 on a pain scale. quality is pressure, is located in chest wall began \\T\\ 2 pm. Respiratory: Airway is patent Respiratory effort is even, unlabored, Respiratory pattern is regular, symmetrical. GI: No signs and/or symptoms were reported involving the gastrointestinal system. : No signs and/or symptoms were reported regarding the genitourinary system. EENT: No signs and/or symptoms were reported regarding the EENT system. Derm: Skin is intact, is healthy with good turgor, Skin is pink, warm \\T\\ dry. normal. Musculoskeletal: No signs and/or symptoms reported regarding the musculoskeletal system. 23:33 Reassessment: Patient appears in no apparent distress at this time. Patient and/or mg2 family updated on plan of care and expected duration. Pain level reassessed. Patient is alert, oriented x 3, equal unlabored respirations, skin warm/dry/pink. 05/13 00:58 Reassessment: Patient appears in no apparent distress at this time. Patient and/or mg2 family updated on plan of care and expected duration. Pain level reassessed. Patient is alert, oriented x 3, equal unlabored respirations, skin warm/dry/pink. patient agreed to be admitted. Vital Signs: 05/12 21:24 BP 148 / 86; Pulse 90; Resp 18; Temp 98.9(O); Pulse Ox 97% on R/A; Weight 90.72 kg; aa1 Height 4 ft. 11 in. (149.86 cm); Pain 6/10; 23:33 BP 140 / 85; Pulse 78; Resp 18; Pulse Ox 100% on R/A; Pain 3/10; mg2 05/13 00:59 BP 134 / 78; Pulse 86; Resp 18; Pulse Ox 100% on R/A; Pain 1/10; mg2 05/12 21:24 Body Mass Index 40.39 (90.72 kg, 149.86 cm) aa1 ED Course: 05/12 20:30 Patient arrived in ED. ds1 21:24 Triage completed. aa1 21:24 Arm band placed on right wrist. Patient placed in waiting room, Patient notified of aa1 wait time. 22:07 Rena Yung FNP-C is PHCP. snw 22:08 Robin Cota MD is Attending Physician. snw 22:09 Chest Pa And Lat (2 Views) XRAY In Process Unspecified. EDMS 22:17 Caleb Nielson, NEVAEH is Primary Nurse. mg2 22:24 Patient has correct armband on for positive identification. monitoring coordinator on. Pulse mg2 ox on. NIBP on. Door closed. 22:24 No provider procedures requiring assistance completed. Patient did not have IV access mg2 during this emergency room visit. Patient maintains SpO2 saturation greater than 95% on room air. 05/13 00:27 William Ibarra MD is Hospitalizing Provider. snw Administered Medications: 05/12 23:17 Drug: ProTONIX 40 mg Route: PO; mg2 05/13 00:56 Follow up: Response: No adverse reaction mg2 00:14 Drug: Aspirin Chewable Tablet 324 mg Route: PO; mg2 00:56 Follow up: Response: No adverse reaction mg2 Outcome: 00:28 Decision to Hospitalize by Provider. snw 01:48 Patient left the ED. mg2 Signatures: Dispatcher [employer] EDMS Tamica Mendez RN RN aa1 Rena Yung FNP-C FNP-Csn Palomaresi ds1 Caleb Nielson RN RN mg2 Corrections: (The following items were deleted from the chart) 05/12 22:25 21:24 Home Meds: None; aa1 mg2
--- NOTE | 2018-05-13 00:28 | EDPHYS ---
Physician Documentation [facility] Name: Ngozi Bear Age: 38 yrs Sex: Female : 1980 Arrival Date: 05/12/2018 Time: 20:30 Bed 19 Private MD: ED Physician Robin Cota HPI: 05/12 23:02 This 38 yrs old Female presents to ER via Ambulatory with complaints of Chest snw Wall Pain, Cough. 23:02 The patient or guardian reports chest pain that is located primarily in the substernal snw area, epigastric area. Onset: suddenly, at 14:00. Associated signs and symptoms: Pertinent positives: cough, nausea. The chest pain is described as burning, a pressure. Duration: The patient or guardian reports multiple episodes. Modifying factors: The symptoms are alleviated by nothing. Severity of pain: At its worst the pain was moderate. The patient has not experienced similar symptoms in the past. The patient has not recently seen a physician. 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 - Social history:: Smoking status: Patient/guardian denies using tobacco. - Ebola Screening: : Patient denies exposure to infectious person Patient denies travel to an Ebola-affected area in the 21 days before illness onset. ROS: 23:00 Constitutional: Negative for fever, chills, and weight loss, Eyes: Negative for injury, snw pain, redness, and discharge, ENT: Negative for injury, pain, and discharge, Neck: Negative for injury, pain, and swelling, Cardiovascular: Positive for chest pain, Negative for palpitations and edema, Respiratory: Negative for shortness of breath, cough, wheezing, and pleuritic chest pain. 23:00 Back: Negative for injury and pain, : Negative for injury, bleeding, discharge, and swelling, MS/Extremity: Negative for injury and deformity, Skin: Negative for injury, rash, and discoloration, Neuro: Negative for headache, weakness, numbness, tingling, and seizure. 23:00 Abdomen/GI: Positive for nausea, burning between breasts. Exam: 23:00 Constitutional: This is a well developed, well nourished patient who is awake, alert, snw and in no acute distress. Head/Face: Normocephalic, atraumatic. Eyes: Pupils equal round and reactive to light, extra-ocular motions intact. Lids and lashes normal. Conjunctiva and sclera are non-icteric and not injected. Cornea within normal limits. Periorbital areas with no swelling, redness, or edema. ENT: Nares patent. No nasal discharge, no septal abnormalities noted. Tympanic membranes are normal and external auditory canals are clear. Oropharynx with no redness, swelling, or masses, exudates, or evidence of obstruction, uvula midline. Mucous membranes moist. Neck: Trachea midline, no thyromegaly or masses palpated, and no cervical lymphadenopathy. Supple, full range of motion without nuchal rigidity, or vertebral point tenderness. No Meningismus. Chest/axilla: Normal chest wall appearance and motion. Nontender with no deformity. No lesions are appreciated. Cardiovascular: Regular rate and rhythm with a normal S1 and S2. No gallops, murmurs, or rubs. Normal PMI, no JVD. No pulse deficits. Respiratory: Lungs have equal breath sounds bilaterally, clear to auscultation and percussion. No rales, rhonchi or wheezes noted. No increased work of breathing, no retractions or nasal flaring. Abdomen/GI: Soft, non-tender, with normal bowel sounds. No distension or tympany. No guarding or rebound. No evidence of tenderness throughout. Back: No spinal tenderness. No costovertebral tenderness. Full range of motion. Skin: Warm, dry with normal turgor. Normal color with no rashes, no lesions, and no evidence of cellulitis. MS/ Extremity: Pulses equal, no cyanosis. Neurovascular intact. Full, normal range of motion. Neuro: Awake and alert, GCS 15, oriented to person, place, time, and situation. Cranial nerves II-XII grossly intact. Motor strength 5/5 in all extremities. Sensory grossly intact. Cerebellar exam normal. Normal gait. Psych: Awake, alert, with orientation to person, place and time. Behavior, mood, and affect are within normal limits. Vital Signs: 21:24 BP 148 / 86; Pulse 90; Resp 18; Temp 98.9(O); Pulse Ox 97% on R/A; Weight 90.72 kg; aa1 Height 4 ft. 11 in. (149.86 cm); Pain 6/10; 23:33 BP 140 / 85; Pulse 78; Resp 18; Pulse Ox 100% on R/A; Pain 3/10; mg2 05/13 00:59 BP 134 / 78; Pulse 86; Resp 18; Pulse Ox 100% on R/A; Pain 1/10; mg2 05/12 21:24 Body Mass Index 40.39 (90.72 kg, 149.86 cm) aa1 MDM: 05/12 22:08 Patient medically screened. tiffany 05/13 00:28 ECG:. The patient was given aspirin in the Emergency Department. Data reviewed: vital snw signs, nurses notes, lab test result(s), EKG, radiologic studies. Counseling: I had a detailed discussion with the patient and/or guardian regarding: the historical points, exam findings, and any diagnostic results supporting the discharge/admit diagnosis, the presence of at least one elevated blood pressure reading (>120/80) during this emergency department visit, lab results, radiology results, the need for further work-up and treatment in the hospital. Physician consultation: William Ibarra MD was called at 00:28, was contacted at 00:28, regarding admission, to the telemetry unit. 05/12 22:46 Order name: CBC with Diff; Complete Time: 00:07 snw 05/12 22:46 Order name: Troponin (emerg Dept Use Only); Complete Time: 23:59 snw 05/12 22:46 Order name: DD; Complete Time: 00:15 snw 05/12 22:46 Order name: Chem 7; Complete Time: 23:59 snw 05/13 00:52 Order name: Basic Metabolic Panel EDMS 05/13 00:52 Order name: Basic Metabolic Panel EDMS 05/12 21:29 Order name: Chest Pa And Lat (2 Views) XRAY snw 05/13 00:52 Order name: Lipid Profile EDMS 05/13 00:52 Order name: Lipid Profile EDMS 05/13 00:52 Order name: Troponin I EDMS 05/13 00:53 Order name: CBC with Automated Diff EDMS 05/13 00:53 Order name: CBC with Automated Diff EDMS 05/13 00:53 Order name: Troponin I EDMS 05/13 00:53 Order name: Troponin I EDMS 05/12 22:08 Order name: EKG; Complete Time: 22:08 snw 05/12 22:08 Order name: EKG - Nurse/Tech; Complete Time: 23:01 snw 05/12 22:46 Order name: SL; Complete Time: 23:17 snw 05/13 00:53 Order name: Heart Healthy EDMS 05/13 00:53 Order name: EKG Electrocardiogram EDMS 05/13 00:53 Order name: EKG Electrocardiogram EDMS 05/13 00:53 Order name: EKG Electrocardiogram EDMS Administered Medications: 05/12 23:17 Drug: ProTONIX 40 mg Route: PO; mg2 05/13 00:56 Follow up: Response: No adverse reaction mg2 00:14 Drug: Aspirin Chewable Tablet 324 mg Route: PO; mg2 00:56 Follow up: Response: No adverse reaction mg2 Disposition: 03:00 Co-signature as Attending Physician, Robin Cota MD. rn Disposition: 05/13/18 00:28 Hospitalization ordered by William Ibarra for Observation. Preliminary diagnosis is Chest pain, unspecified. - Bed requested for Telemetry/MedSurg (observation). - Status is Observation. mg2 - Condition is Stable. - Problem is new. - Symptoms are unchanged. UTI on Admission? No Signatures: Dispatcher [employer] [facility] Stephanie Agrawal RN RN kl Kern, Alissa, RN RN aa1 Estuardo Gao MD MD cha Therrien, Shelly, CRIME SCENE EXAMINER-C CRIME SCENE EXAMINER-Csnw Robin Cota MD MD rn Gardose, Michele, RN RN mg2 Corrections: (The following items were deleted from the chart) 05/12 22:25 21:24 Home Meds: None; aa1 mg2 05/13 01:07 00:28 Hospitalization Ordered by William Ibarra MD for Observation. Preliminary kl diagnosis is Chest pain, unspecified. Bed requested for Telemetry/MedSurg (observation). Status is Observation. Condition is Stable. Problem is new. Symptoms are unchanged. UTI on Admission? No. snw 01:48 01:07 05/13/2018 00:28 Hospitalization Ordered by William Ibarra MD for Observation. mg2 Preliminary diagnosis is Chest pain, unspecified. Bed requested for Telemetry/MedSurg (observation). Status is Observation. Condition is Stable. Problem is new. Symptoms are unchanged. UTI on Admission? No. kl
[2018-05-13] MEDS ORDERED: MORPHINE 4 MG/ML SYR IV PRN (00:49)
[2018-05-13] MEDS ORDERED: ACETAMINOPHEN 500 MG TAB PO PRN (00:49)
[2018-05-13] MEDS ORDERED: ALPRAZOLAM 0.25 MG TABLET PO PRN (00:49)
[2018-05-13] MEDS ORDERED: PANTOPRAZOLE 40 MG INJ IVP ONE (00:56)
[2018-05-13] MEDS ORDERED: SODIUM CHLORIDE 0.9% 10ML INJ IV PRN (00:56)
[2018-05-13 01:51] VITALS: BMI 41.7
[2018-05-13] MEDS: PANTOPRAZOLE 40 MG INJ IVP SCH ×2 (05:26→10:08)
--- NOTE | 2018-05-13 07:11 | RAD REPORT ---
EXAM DESCRIPTION: RAD - Chest Pa And Lat (2 Views) - 05/12/2018 10:11 pm CLINICAL HISTORY: Persistent dry cough, chest pain COMPARISON: April 04 TECHNIQUE: PA and lateral views of the chest were obtained. FINDINGS: The lungs are clear. Heart size is normal and central vasculature is within normal limit s. No pleural effusion or pneumothorax seen. No acute bony finding noted. No aortic abnormality. IMPRESSION: No acute cardiopulmonary process.
--- NOTE | 2018-05-13 07:42 | EKG ---
Test Date: 2018-05-12 Test Time: 22:29:02 It Communications Manager: KATELYNN MEASUREMENT RESULTS: Intervals: Rate: 92 OK: 148 QRSD: 84 QT: 388 QTc: 479 [place]: P: 52 OK: 148 QRS: 23 T: 23 INTERPRETIVE STATEMENTS: Normal sinus rhythm ST & T wave abnormality, consider anterior ischemia Abnormal ECG Compared to ECG 04/04/2018 14:54:18 ST (T wave) deviation now present T-wave abnormality no longer present Prolonged QT interval no longer present Electronically Signed On 05-13-18 07:41:45 DECISION SCIENCE ANALYST by Roger Orellana
[2018-05-13] MEDS ORDERED: REGADENOSON 0.4 MG/5 ML SYR IV ONE (08:40)
--- NOTE | 2018-05-13 08:50 | P.HP ---
Certification for Inpatient Patient admitted to: Observation With expected LOS: <2 Midnights Patient will require the following post-hospital care: None Practitioner: I am a practitioner with admitting privileges, knowledge of patient current condition, hospital course, and medical plan of care. Services: Services provided to patient in accordance with Admission requirements found in Title 42 Section 412.3 of the Code of Federal Regulations Patient History Date of Service: 05/13/18 Reason for admission: Chest pain rule out acute coronary syndrome History of Present Illness: Patient is a 38-year-old female came to the hospital with chest discomfort. Pain was mainly in the sternal region. Pain continuously got worse. Patient came to the hospital for further evaluation. Patient has had a stress test for the last year. This was negative. Patient also had a echocardiogram which also did not reveal any abnormality. It was felt that patient most likely had gastroesophageal reflux disease. Patient was discharged with a PPI. Patient takes aspirin daily. Patient's pain has improved. Plan is to continue to do an echocardiogram. Serial troponins and EKG as well. Will admit for observation. Allergies No Known Allergies Allergy (Verified 05/13/18 01:32) Home Medications: PARoxetine HCl [Paxil*] 10 mg PO BID 03/28/17 - Past Medical/Surgical History Has patient received pneumonia vaccine in the past: No Diabetic: No -: Anxiety -: Obesity -: Depression -: HTN -: Tubal Ligation 2007 -: Appendectomy Psychosocial/ Personal History: The patient is . She has 2 children. 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 moist/pink, EOMI, Sclerae nonicteric Neck: Supple, 2+ carotid pulse no bruit, No LAD, Without JVD or thyroid abnormality Respiratory: Clear to auscultation bilaterally, Normal air movement Cardiovascular: Regular rate/rhythm, Normal S1 S2, No murmurs Gastrointestinal: Normal bowel sounds, Soft and benign, Non-distended, No tenderness Musculoskeletal: No clubbing, No swelling, No tenderness Integumentary: No rashes Neurological: Normal gait, Normal speech, Normal strength at 5/5 x4 extr, Normal tone, Sensation intact, Cranial nerves 3-12 intact, Normal affect Lymphatics: No axilla or inguinal lymphadenopathy - Studies Laboratory Data (last 24 hrs) 05/12/18 23:05: Sodium 136, Potassium 3.3 L, BUN 10, Creatinine 0.70, Glucose 113 H 05/12/18 23:05: WBC 9.8, Hgb 11.3 L, Hct 34.1 L, Plt Count 247 Assessment & Plan - Problems (Diagnosis) (1) GERD (gastroesophageal reflux disease) Current Visit: No Status: Chronic Qualifiers: Esophagitis presence: without esophagitis Qualified Code(s): K21.9 - Gastro -esophageal reflux disease without esophagitis (2) Obesity Current Visit: No Status: Chronic Qualifiers: Obesity type: due to excess calories Obesity classification: adult class 2 (BMI 35 ? 39.9) Serious obesity comorbidity presence: without serious comorbidity Body mass index: BMI 37.0-37.9 Qualified Code(s): E66.09 - Other obesity due to excess calories; Z68.37 - Body mass index (BMI) 37.0-37.9, adult; Z68.37 - Body mass index (BMI) 37.0-37.9, adult (3) Obstructive sleep apnea Current Visit: No Status: Chronic (4) Chest pain Current Visit: No Status: Ruled-out Qualifiers: Chest pain type: other chest pain Qualified Code(s): R07.89 - Other chest pain; R07.8 - Other chest pain - Plan 1. Serial troponins and EKG 2. Outpt GI consultation 3. Echocardiogram and lipid profile 4. Anti-platelet therapy, anti coagulation, beta-allen, statin, and O2 as needed 5. IV morphine for pain 6. Nitro p.r.n. Discharge Plan: Home Plan to discharge in: 24 Hours - Advance Directives Does patient have a Living Will: No Does patient have a Durable POA for Healthcare: No - Code Status/Comfort Care Code Status Assessed: Yes Code Status: Full Code Critical Care: No Time Spent Managing PTS Care (In Minutes): 50
[2018-05-13] MEDS ORDERED: ASPIRIN EC 81 MG TAB PO SCH (09:00)
[2018-05-13] MEDS ORDERED: METOPROLOL TAR 50 MG TAB PO SCH (09:00)
[2018-05-13] MEDS ORDERED: ENOXAPARIN 40 MG/0.4 ML SQ SCH (09:00)
[2018-05-13 13:35] VITALS: O2SAT 97
--- NOTE | 2018-05-13 14:35 | RAD REPORT ---
EXAM DESCRIPTION: NM - Rest Stress Cardiac Imaging - 05/13/2018 2:30 pm CLINICAL HISTORY: CP Chest pain. COMPARISON: No comparisons TECHNIQUE: The patient was administered approximately 10mCi of Tc 99m Sestamibi prior to resting SPE CT imaging of the heart. The patient was then administered approximately 30 mCi of Tc 99m Sestamibi f ollowing exercise or pharmacologic stress. Multiplanar SPECT images were reviewed. FINDINGS: No stress induced ischemic defect is seen to suggest stress induced ischemia. Small fixed defect is seen in the LV apex with rest and stress, likely representing scar tissue from prior infarc tion. The end diastolic volume is 89 ml, the end systolic volume is 48 ml, and the ejection fraction is 47 %. IMPRESSION: No stress induced ischemia. Small focal area of scarring suspected LV apex.
[2018-05-13 15:11] VITALS: BP 126/62; TEMP 97.8
--- NOTE | 2018-05-13 15:30 | ECHO ---
HEIGHT: 4 ft 11 in WEIGHT: 206 lb 0 oz DATE OF STUDY: 05/13/[address]: Haley Sifuentes MD 2-DIMENSIONAL: YES M.MODE: YES DOPPLER: YES COLOR FLOW: YES TDS: PORTABLE: DEFINITY: BUBBLE STUDY: DIAGNOSIS: CHEST PAIN CARDIAC HISTORY: CATHERIZATION: NO SURGERY: NO PROSTHETIC VALVE: NO PACEMAKER: NO MEASUREMENTS (cm) DIASTOLIC (NORMALS) SYSTOLIC (NORMALS) IVSd 1.1 (0.6-1.2) LA Diam 3.7 (1.9-4.0) LVEF 61% LVIDd 5.2 (3.5-5.7) LVIDs 3.5 (2.0-3.5) %FS 33% LVPWd 1.0 (0.6-1.2) Ao Diam 2.8 (2.0-3.7) 2 DIMENSIONAL ASSESSMENT: RIGHT ATRIUM: NORMAL LEFT ATRIUM: NORMAL RIGHT VENTRICLE: NORMAL LEFT VENTRICLE: NORMAL TRICUSPID VALVE: NORMAL MITRAL VALVE: NORMAL PULMONIC VALVE: NORMAL AORTIC VALVE: NORMAL PERICARDIAL EFFUSION: NONE AORTIC ROOT: NORMAL LEFT VENTRICULAR WALL MOTION: DOPPLER/COLOR FLOW: PHYSIOLOGIC TRICUSPID REGURGITATION. COMMENTS: NORMAL TWO DIMENSIONAL ECHOCARDIOGRAM WITH DOPPLER. TECHNOLOGIST: KYLAH BAEZ.
--- NOTE | 2018-05-13 15:41 | TREADPHA ---
DX: CHEST PAIN Date of Study: 05/13/2018 Ht: 4 11 Wt: 206 lb 0 oz Consulting Physician: DR. BARRERA MEDICATIONS: TYLENOL, ASPIRIN, LOVENOX, LOPRESSOR, PROTONIX HISTORY: 38 YEAR OLD FEMALE WITH COMPLAINTS OF CHEST PAIN. MEDICAL HISTORY: HYPERTENSION, DEPRESSION, ANXIETY. PHYSICIAL EXAMINATION: RESTING B.P.: 133/88 RESTING H.R.: 78 RESTING EKG: SINUS RHYTHM, ANTERIOR T WAVE INVERSION. PROTOCOL: LEXISCAN EXERCISE TIME: 3:30 B.P. AT PEAK STRESS: 128/86 IMPRESSION: LEXISCAN INJECTED, CARDIOLITE INJECTED PER PROTOCOL. SEE NUCLEAR MEDICINE REPORT. NO SUPRAVENTRICULAR TACHYCARDIA. NO VENTRICULAR TACHYCARDIA. NO PREMATURE VENTRICULAR COMPLEXES. DENIED CHEST PAIN. NONDIAGNOSTIC EXERCISE LEXISCAN STRESS.
== END 2018-05-13 15:50 | disposition home or self-care (01) ==
LOC: ER 20:29 → ERHOLD 05-13 00:49 → 2ND 05-13 01:32
PROVIDERS: ADMIT Hospitalist; ATTEND Hospitalist
DX: R07.9 Chest pain, unspecified (principal); F41.8 Other specified anxiety disorders; E66.9 Obesity, unspecified; Z68.41 Body mass index [BMI] 40.0-44.9, adult; I10 Essential (primary) hypertension; K21.9 Gastro-esophageal reflux disease without esophagitis; G47.33 Obstructive sleep apnea (adult) (pediatric)
CPT/HCPCS: 36415; 71046; 78452; 80048; 80061; 84484; 85025; 85379; 93005; 93017; 93306; 99284; A9500; C9113; G0378; J1650; J2785

== ENCOUNTER 2018-05-27 00:38 | Emergency (ER) | payer OTHER ==
[2018-05-27 01:15] LABS: Absolute Lymphocytes (CBC) 2.6 K/uL (0.7-4.9); Absolute Monocytes 0.6 K/uL (0.1-1.3); Absolute Neutrophil 4.4 K/uL (1.8-8.0); Basophils % 0.4 % (0-1.3); Eosinophils % 4.3 % (0-4.4); Lymphocytes % 32.5 % (15.3-44.8); Monocytes % 8.1 % (3.3-12.3)
[2018-05-27 01:18] LABS: Protime INR 1.28
[2018-05-27 01:42] LABS: ALT/SGPT 122 U/L (12-78); AST/SGOT 75 U/L (15-37); Albumin 3.4 g/dL (3.4-5.0); Alkaline Phosphatase 77 U/L (45-117); BUN Blood Urea Nitrogen 8 mg/dL (7-18); Bicarbonate 26 mmol/L (21-32); Bilirubin Direct 0.2 mg/dL (0-0.2); Bilirubin Total 0.3 mg/dL (0.2-1.0); Glucose Level 104 mg/dL (74-106); Magnesium 1.9 mg/dL (1.8-2.4); NT PRO-BNP 44 pg/mL (<125); Potassium 3.3 mmol/L (3.5-5.1); Protein, Total 7.9 g/dL (6.4-8.2); Sodium Level 141 mmol/L (136-145); Troponin (Emerg Dept Use Only) 0.02 ng/mL (0.0-0.045)
--- NOTE | 2018-05-27 01:59 | EDPHYS ---
Physician Documentation [facility] Name: Ngozi Bear Age: 38 yrs Sex: Female : 1980 Arrival Date: 05/27/2018 Time: 00:39 Bed 14 Private MD: Jeane Mitchell C ED Physician Tony Garcia HPI: 05/27 01:08 This 38 yrs old Female presents to ER via Ambulatory with complaints of Chest pkl Pain - rad to left arm. 01:08 The patient or guardian reports chest pain that is located primarily in the substernal pkl area. Onset: just prior to arrival, 1 hour(s) ago. The pain radiates to the left arm. Associated signs and symptoms: The patient has no apparent associated signs or symptoms. The chest pain is described as Tightness. The patient has experienced a previous episode, last month, Awaiting appointment with site safety coordinator. 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 - Social history:: Smoking status: Patient/guardian denies using tobacco, Patient uses alcohol, but reports only rare drinking. - Ebola Screening: : No symptoms or risks identified at this time. ROS: 01:08 Eyes: Negative for injury, pain, redness, and discharge, ENT: Negative for injury, pkl pain, and discharge, Neck: Negative for injury, pain, and swelling. 01:08 Cardiovascular: Positive for chest pain. 01:08 Respiratory: Negative for cough, shortness of breath. 01:08 Abdomen/GI: Negative for abdominal pain, nausea, vomiting, and diarrhea. 01:08 Back: Negative for acute changes. 01:08 : Negative for urinary symptoms. 01:08 MS/extremity: Negative for acute changes. 01:08 Skin: Negative for rash. 01:08 Neuro: Negative for altered mental status. Exam: 01:08 Head/Face: Normocephalic, atraumatic. Eyes: Pupils equal round and reactive to light, pkl extra-ocular motions intact. Lids and lashes normal. Conjunctiva and sclera are non-icteric and not injected. Cornea within normal limits. Periorbital areas with no swelling, redness, or edema. ENT: Nares patent. No nasal discharge, no septal abnormalities noted. Tympanic membranes are normal and external auditory canals are clear. Oropharynx with no redness, swelling, or masses, exudates, or evidence of obstruction, uvula midline. Mucous membranes moist. Neck: Trachea midline, no thyromegaly or masses palpated, and no cervical lymphadenopathy. Supple, full range of motion without nuchal rigidity, or vertebral point tenderness. No Meningismus. Chest/axilla: Normal chest wall appearance and motion. Nontender with no deformity. No lesions are appreciated. Cardiovascular: Regular rate and rhythm with a normal S1 and S2. No gallops, murmurs, or rubs. Normal PMI, no JVD. No pulse deficits. Respiratory: Lungs have equal breath sounds bilaterally, clear to auscultation and percussion. No rales, rhonchi or wheezes noted. No increased work of breathing, no retractions or nasal flaring. Abdomen/GI: Soft, non-tender, with normal bowel sounds. No distension or tympany. No guarding or rebound. No evidence of tenderness throughout. Back: No spinal tenderness. No costovertebral tenderness. Full range of motion. Skin: Warm, dry with normal turgor. Normal color with no rashes, no lesions, and no evidence of cellulitis. MS/ Extremity: Pulses equal, no cyanosis. Neurovascular intact. Full, normal range of motion. Neuro: Awake and alert, GCS 15, oriented to person, place, time, and situation. Cranial nerves II-XII grossly intact. Motor strength 5/5 in all extremities. Sensory grossly intact. Cerebellar exam normal. Normal gait. Vital Signs: 00:39 BP 134 / 81; Pulse 98; Resp 16; Temp 98.8(O); Pulse Ox 98% on R/A; Weight 90.72 kg (R); jb4 Height 4 ft. 11 in. (149.86 cm) (R); Pain 7/10; 02:00 BP 109 / 66; Pulse 76; Resp 16; Pulse Ox 100% on R/A; jb4 00:39 Body Mass Index 40.39 (90.72 kg, 149.86 cm) jb4 MDM: 01:02 Patient medically screened. pkl 01:53 Data reviewed: vital signs, nurses notes, lab test result(s), EKG, radiologic studies, pkl plain films. ED course: Discussed lab. EKG and X' rays results with patient. Advised US gallbladder and liver as outpatient with PCP and schedule appointment with Dr. Damon ( Men'S Furnishings Salesperson ) regarding elevated liver functions. Patient understood instructions.. 05/27 00:50 Order name: Basic Metabolic Panel; Complete Time: bb 05/27 00:50 Order name: CBC with Diff; Complete Time: bb 05/27 00:50 Order name: LFT's; Complete Time: bb 05/27 00:50 Order name: Magnesium; Complete Time: bb 05/27 00:50 Order name: NT PRO-BNP; Complete Time: bb 05/27 00:50 Order name: PT-INR; Complete Time: bb 05/27 00:50 Order name: Troponin (emerg Dept Use Only); Complete Time: :46 bb 05/27 00:50 Order name: XRAY Chest (1 view) bb 05/27 00:50 Order name: EKG; Complete Time: 00:51 bb 05/27 00:50 Order name: Cardiac monitoring; Complete Time: : bb 05/27 00:50 Order name: EKG - Nurse/Tech; Complete Time: : 05/27 01:11 Order name: D-Dimer; Complete Time: :46 EDVA 05/27 00:50 Order name: IV Saline Lock; Complete Time: : bb 05/27 00:50 Order name: Labs collected and sent; Complete Time: : bb 05/27 00:50 Order name: O2 Per Protocol; Complete Time: :05/27 00:50 Order name: O2 Sat Monitoring; Complete Time: 01:00 bb Administered Medications: No medications were administered Disposition: 05/27/18 01:59 Discharged to Home. Impression: Chest pain. Elevated liver functions. - Condition is Stable. - Prescriptions for Ultram 50 mg Oral Tablet - take 1 tablet by ORAL route every 8 hours As needed; 20 tablet. - Medication Reconciliation Form, Thank You Letter, Antibiotic Education, Prescription Opioid Use form. - Follow up: Private Physician; When: 1 - 2 days; Reason: Re-evaluation by your physician. - Problem is new. - Symptoms have improved. Signatures: Dispatcher [employer] [facility] Tony Garcia MD MD pkl Jodi Maurice, RN RN René Mark RN RN jb4 Corrections: (The following items were deleted from the chart) 01:11 01:08 D-DIMER+[id number].LAB.BRZ ordered. [facility] 02:24 01:59 05/27/2018 01:59 Discharged to Home. Impression: Chest pain. Elevated liver jb4 functions. Condition is Stable. Forms are Medication Reconciliation Form, Thank You Letter, Antibiotic Education, Prescription Opioid Use. Follow up: Private Physician; When: 1 - 2 days; Reason: Re-evaluation by your physician. Problem is new. Symptoms have improved. pkl
--- NOTE | 2018-05-27 01:59 | ER ---
Nurse's Notes [facility] Name: Ngozi Bear Age: 38 yrs Sex: Female : 1980 Arrival Date: 05/27/2018 Time: 00:39 Bed 14 Private MD: Jeane Stanley C Diagnosis: Chest pain. 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 jb4 It radiates to my left arm and it is tingling and numb. It is also making me nauseous. Transition of care: patient was not received from another setting of care. Onset of symptoms was May 27, 2018. Risk Assessment: Do you want to hurt yourself or someone else? Patient reports no desire to harm self or others. Initial Sepsis Screen: Does the patient meet any 2 criteria? HR > 90 bpm. Yes Does the patient have a suspected source of infection? No. Patient's initial sepsis screen is negative. Care prior to arrival: None. 00:39 Method Of Arrival: Ambulatory jb4 00:39 Acuity: ALEXIA 3 jb4 Triage Assessment: 00:39 General: Appears in no apparent distress. uncomfortable, Behavior is cooperative, jb4 appropriate for age, anxious. Pain: Complains of pain in chest Pain radiates to left arm Pain currently is 7 out of 10 on a pain scale. Quality of pain is described as pressure, Pain began 30 min ago. Is intermittent. EENT: No signs and/or symptoms were reported regarding the EENT system. Neuro: Level of Consciousness is awake, alert, obeys commands, Oriented to person, place, time, situation. Cardiovascular: Heart tones S1 S2 present Patient's skin is warm and dry. Rhythm is sinus rhythm. Respiratory: Airway is patent Respiratory effort is even, unlabored, Respiratory pattern is regular, symmetrical, Breath sounds are clear bilaterally. GI: Reports nausea. : No signs and/or symptoms were reported regarding the genitourinary system. Derm: Skin is intact, Skin is pink, warm \T\ dry. Musculoskeletal: Circulation, motion, and sensation intact. Reports numbness in left arm Tingling in the left arm. 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 - Social history:: Smoking status: Patient/guardian denies using tobacco, Patient uses alcohol, but reports only rare drinking. - Ebola Screening: : No symptoms or risks identified at this time. Screenin:39 Abuse screen: Denies threats or abuse. Nutritional screening: No deficits noted. jb4 Tuberculosis screening: No symptoms or risk factors identified. Fall Risk None identified. Assessment: 00:39 General: see triage assessment.. Pain: Complains of pain in chest Pain radiates to left jb4 arm. 02:00 Reassessment: Patient appears in no apparent distress at this time. Patient and/or jb4 family updated on plan of care and expected duration. Pain level reassessed. Patient is alert, oriented x 3, equal unlabored respirations, skin warm/dry/pink. Vital Signs: 00:39 BP 134 / 81; Pulse 98; Resp 16; Temp 98.8(O); Pulse Ox 98% on R/A; Weight 90.72 kg (R); jb4 Height 4 ft. 11 in. (149.86 cm) (R); Pain 7/10; 02:00 BP 109 / 66; Pulse 76; Resp 16; Pulse Ox 100% on R/A; jb4 00:39 Body Mass Index 40.39 (90.72 kg, 149.86 cm) 4 ED Course: 00:39 Patient arrived in ED. am2 00:39 RACIEL STANLEY is Private Physician. am2 00:39 Jeane Stanley FNP is Private Physician. am2 00:39 Arm band placed on left wrist. EKG completed in triage. Results shown to MD. jb4 00:39 Patient has correct armband on for positive identification. Placed in gown. Bed in low jb4 position. Call light in reach. Side rails up X 1. decision support analyst on. Pulse ox on. NIBP on. 00:39 Patient maintains SpO2 saturation greater than 95% on room air. jb4 00:45 Initial lab(s) drawn, by ED staff, sent to lab. Inserted saline lock: 20 gauge in right jb4 antecubital area, using aseptic technique. Blood collected. 00:47 René Zuniga, RN is Primary Nurse. jb4 00:48 Triage completed. jb4 01:01 Tony Garcia MD is Attending Physician. pkl 01:13 XRAY Chest (1 view) In Process Unspecified. EDMS 02:23 No provider procedures requiring assistance completed. IV discontinued, intact, jb4 bleeding controlled. Administered Medications: No medications were administered Outcome: 01:59 Discharge ordered by . pkl 02:24 Discharged to home ambulatory, with family. jb4 02:24 Condition: stable 02:24 Discharge instructions given to patient, family, Instructed on discharge instructions, follow up and referral plans. medication usage, Demonstrated understanding of instructions, follow-up care, medications, Prescriptions given X 1. 02:24 Patient left the ED. jb4 Signatures: Dispatcher [employer] EDOR Tony Garcia MD MD pkl Bryson, James, RN RN jb4 Rosalinda Allen am2
[2018-05-27 03:58] VITALS: TEMP 98.8
[2018-05-27 04:00] VITALS: BP 109/66; O2SAT 100
--- NOTE | 2018-05-27 07:56 | EKG ---
Test Date: 2018-05-27 Test Time: 00:45:37 Awning Craftsperson: KATELYNN MEASUREMENT RESULTS: Intervals: Rate: 95 NV: 142 QRSD: 80 QT: 388 QTc: 487 [place]: P: 57 NV: 142 QRS: 35 T: 36 INTERPRETIVE STATEMENTS: Normal sinus rhythm ST & T wave abnormality, consider anterior ischemia Prolonged QT Abnormal ECG Compared to ECG 05/12/2018 22:29:02 Prolonged QT interval now present ST (T wave) deviation still present Electronically Signed On 05-27-18 07:55:48 TMD TEACHER by Roger Orellana
--- NOTE | 2018-05-27 08:33 | RAD REPORT ---
EXAM DESCRIPTION: RAD - Chest Single View - 05/27/2018 1:13 am CLINICAL HISTORY: Chest pain radiating to the left arm COMPARISON: May 12, 2018 TECHNIQUE: AP portable chest image was obtained 0106 hours . FINDINGS: Lungs are clear. Heart and vasculature are normal. No measurable pleural effusion and no p neumothorax. No acute bony abnormality seen. No acute aortic findings suspected. IMPRESSION: No acute cardiopulmonary process. No significant change from comparison.
== END 2018-05-27 02:24 | disposition home or self-care (01) ==
LOC: ER 00:38
DX: R07.9 Chest pain, unspecified (principal); R79.89 Other specified abnormal findings of blood chemistry; F41.8 Other specified anxiety disorders
CPT/HCPCS: 36415; 71045; 80048; 80076; 83735; 83880; 84484; 85025; 85379; 85610; 93005; 99285

== ENCOUNTER 2018-08-29 12:50 | Emergency (ER) | payer SELFPAY ==
[2018-08-29 14:01] LABS: ALT/SGPT 113 U/L (12-78); AST/SGOT 73 U/L (15-37); Albumin 3.4 g/dL (3.4-5.0); Alkaline Phosphatase 80 U/L (45-117); BUN Blood Urea Nitrogen 6 mg/dL (7-18); Bicarbonate 24 mmol/L (21-32); Bilirubin Direct < 0.1 mg/dL (0-0.2); Bilirubin Total 0.3 mg/dL (0.2-1.0); Glucose Level 198 mg/dL (74-106); Magnesium 1.9 mg/dL (1.8-2.4); NT PRO-BNP 49 pg/mL (<125); Potassium 3.6 mmol/L (3.5-5.1); Protein, Total 7.8 g/dL (6.4-8.2); Sodium Level 137 mmol/L (136-145); Troponin (Emerg Dept Use Only) 0.02 ng/mL (0.0-0.045)
[2018-08-29 14:12] LABS: Protime INR 1.07
[2018-08-29 14:16] LABS: MPV 8.5 fL (7.6-11.3); RBC Red Blood Cell Count 4.16 M/uL (3.86-4.86)
[2018-08-29 14:17] LABS: Basophils % 0.4 % (0-1.3); Eosinophils % 3.7 % (0-4.4); Lymphocytes % 19.1 % (15.3-44.8)
[2018-08-29 14:18] LABS: Absolute Lymphocytes (CBC) 1.3 K/uL (0.7-4.9); Absolute Monocytes 0.4 K/uL (0.1-1.3); Absolute Neutrophil 4.9 K/uL (1.8-8.0)
[2018-08-29] MEDS ORDERED: LORazepam 2 MG/ML VIAL ONE (14:20)
--- NOTE | 2018-08-29 14:22 | RAD REPORT ---
EXAM DESCRIPTION: RAD - Chest Single View - 08/29/2018 2:01 pm CLINICAL HISTORY: Syncope, chest pain COMPARISON: May TECHNIQUE: AP portable chest image was obtained 1351 hours . FINDINGS: Lungs are clear. Heart and vasculature are normal. No measurable pleural effusion and no p neumothorax. No acute bony abnormality seen. No acute aortic findings suspected. IMPRESSION: No acute cardiopulmonary process. No significant interval change.
[2018-08-29] MEDS ORDERED: ASPIRIN 81 MG CHEWABLE TABLET ONE (14:44)
--- NOTE | 2018-08-29 15:38 | ER ---
Nurse's Notes [facility] Name: Ngozi Bear Age: 38 yrs Sex: Female : 1980 Arrival Date: 08/29/2018 Time: 12:51 Bed 25 Private MD: Diagnosis: Chest pain, unspecified Presentation: 08/29 12:55 Presenting complaint: Patient states: I was eating then I started to sweat, felt like I la1 was going to pass out and then my chest and left arm started hurting. Transition of care: patient was not received from another setting of care. Onset of symptoms was August 29, 2018. Risk Assessment: Do you want to hurt yourself or someone else? Patient reports no desire to harm self or others. Initial Sepsis Screen: Does the patient meet any 2 criteria? No. Patient's initial sepsis screen is negative. Does the patient have a suspected source of infection? No. Patient's initial sepsis screen is negative. Care prior to arrival: None. 12:55 Method Of Arrival: Ambulatory la1 12:55 Acuity: ALEXIA 2 la1 CREW BOSS: 15:54 lmp unknown mg2 Historical: - Allergies: 12:56 No Known Allergies; la1 - PMHx: 12:56 Anxiety; Depression; Hypertension; la1 - PSHx: 12:56 None; la1 - Immunization history:: Adult Immunizations up to date. - Social history:: Smoking status: Patient/guardian denies using tobacco. - Ebola Screening: : No symptoms or risks identified at this time. Screenin:00 Abuse screen: Denies threats or abuse. Denies injuries from another. Nutritional ca1 screening: No deficits noted. Tuberculosis screening: No symptoms or risk factors identified. Fall Risk None identified. Assessment: 13:00 General: Appears in no apparent distress. comfortable, Behavior is calm, cooperative, ca1 appropriate for age. Pain: Complains of pain in chest Pain radiates to epigastric area and left arm Pain currently is 6 out of 10 on a pain scale. Quality of pain is described as pressure, Pain began 30 min ago. Neuro: Level of Consciousness is awake, alert, obeys commands, Oriented to person, place, time, situation. Cardiovascular: Heart tones S1 S2 present Capillary refill < 3 seconds Patient's skin is warm and dry. Cardiovascular:. Respiratory: Airway is patent Respiratory effort is even, unlabored, Respiratory pattern is regular, symmetrical, Breath sounds are clear. GI: Abdomen is round non-distended, Bowel sounds present X 4 quads. Abd is soft and non tender X 4 quads. Reports nausea. : No deficits noted. No signs and/or symptoms were reported regarding the genitourinary system. EENT: No deficits noted. No signs and/or symptoms were reported regarding the EENT system. Derm: Skin is intact, is healthy with good turgor, Skin is pink, warm \\T\\ dry. Musculoskeletal: Circulation, motion, and sensation intact. Capillary refill < 3 seconds. 15:53 Reassessment: Patient states feeling better. mg2 Vital Signs: 12:56 BP 154 / 91; Pulse 111; Resp 16; Temp 98.7; Pulse Ox 98% on R/A; Weight 77.11 kg; la1 Height 4 ft. 11 in. (149.86 cm); 13:00 BP 142 / 94; Pulse 99; Resp 19; Pulse Ox 100% on R/A; Pain 6/10; ca1 13:33 BP 128 / 85; Pulse 101; Resp 19; Pulse Ox 95% on R/A; ca1 13:45 BP 141 / 81; Pulse 107; Resp 21; Pulse Ox 99% ; jp3 14:00 BP 125 / 96; Pulse 83; Resp 18; Pulse Ox 100% ; jp3 15:26 Pulse 82; Resp 18; Pulse Ox 96% on R/A; mg2 15:53 BP 137 / 77; mg2 12:56 Body Mass Index 34.34 (77.11 kg, 149.86 cm) la1 ED Course: 12:51 Patient arrived in ED. as 12:56 Triage completed. la1 12:57 Arm band placed on right wrist. la1 12:58 Olga Alcala, RN is Primary Nurse. ca1 13:00 Patient has correct armband on for positive identification. Placed in gown. Bed in low ca1 position. Call light in reach. Side rails up X 1. tool clerk on. Pulse ox on. NIBP on. Warm blanket given. 13:00 Patient maintains SpO2 saturation greater than 95% on room air. ca1 13:09 EKG completed in triage. Results shown to . ca1 13:10 EKG done, by ED staff, reviewed by Nathalia SNEED. jp3 13:15 Nathalia Nichole [facility]C [facility] kb 13:15 Estuardo Gao MD is Attending Physician. kb 13:27 Inserted saline lock: 20 gauge in left antecubital area, using aseptic technique. Blood ca1 collected. 13:45 Notified Nurse Practitioner and/or Physician Photo Lab Specialist of Pt reported " having jp3 increased SOB,pressure on my chest, and feel really warm all of a sudden". 13:53 XRAY Chest (1 view) In Process Unspecified. EDMS 15:53 No provider procedures requiring assistance completed. IV discontinued, intact, mg2 bleeding controlled, No redness/swelling at site. Pressure dressing applied. Administered Medications: 14:10 Drug: Ativan 0.5 mg Route: IVP; Site: left antecubital; ca1 15:41 Follow up: Response: No adverse reaction; Marked relief of symptoms mg2 14:31 Drug: Aspirin Chewable Tablet 324 mg Route: PO; ca1 15:40 Follow up: Response: No adverse reaction mg2 Outcome: 15:38 Discharge ordered by MD. kb 15:54 Discharged to home ambulatory, with family. mg2 15:54 Condition: stable 15:54 Discharge instructions given to patient, family, Instructed on discharge instructions, follow up and referral plans. Demonstrated understanding of instructions, follow-up care. 15:55 Patient left the ED. mg2 Signatures: Dispatcher [employer] EDMS Nathalia Nichole FNP-C FNP-Ckb Martinez, Amelia as Attema, Lee, RN RN la1 Caleb Nielson RN RN mg2 Chai Fofana jp3 Olga Alcala RN RN ca1
--- NOTE | 2018-08-29 15:38 | EDPHYS ---
Physician Documentation [facility] Name: Ngozi Bear Age: 38 yrs Sex: Female : 1980 Arrival Date: 08/29/2018 Time: 12:51 Bed 25 Private MD: ED Physician Estuardo Gao HPI: 08/29 14:21 This 38 yrs old Female presents to ER via Ambulatory with complaints of Chest kb Pain, Arm Pain. 14:21 The patient or guardian reports chest pain that is located primarily in the substernal kb area. Onset: 30 minute(s) ago. The pain does not radiate. Associated signs and symptoms: The patient has no apparent associated signs or symptoms. The chest pain is described as a pressure. Duration: The patient or guardian reports a single episode. Modifying factors: The symptoms are alleviated by nothing. the symptoms are aggravated by nothing. Severity of pain: At its worst the pain was mild moderate in the emergency department the pain is unchanged. The patient has experienced similar episodes in the past, multiple times, today's symptoms are similar, to previous anxiety. The patient has not recently seen a physician. 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 States she kb has had similar symptoms in the past when diagnosed with anxiety, but she normally is able to calm herself down and she isn't able to this time. DAIRY SPECIALIST: 15:54 lmp unknown mg2 Historical: - Allergies: 12:56 No Known Allergies; la1 - PMHx: 12:56 Anxiety; Depression; Hypertension; la1 - PSHx: 12:56 None; la1 - Immunization history:: Adult Immunizations up to date. - Social history:: Smoking status: Patient/guardian denies using tobacco. - Ebola Screening: : No symptoms or risks identified at this time. ROS: 14:20 Constitutional: Negative for fever, chills, and weight loss, ENT: Negative for injury, kb pain, and discharge, Neck: Negative for injury, pain, and swelling, Respiratory: Negative for shortness of breath, cough, wheezing, and pleuritic chest pain, Abdomen/GI: Negative for abdominal pain, nausea, vomiting, diarrhea, and constipation, Back: Negative for injury and pain, MS/Extremity: Negative for injury and deformity, Skin: Negative for injury, rash, and discoloration, Neuro: Negative for headache, weakness, numbness, tingling, and seizure. 14:20 Cardiovascular: Positive for chest pain, Negative for edema, orthopnea, palpitations, paroxysmal nocturnal dyspnea. Exam: 14:20 Constitutional: This is a well developed, well nourished patient who is awake, alert, kb and in no acute distress. Head/Face: Normocephalic, atraumatic. ENT: Nares patent. No nasal discharge, no septal abnormalities noted. Tympanic membranes are normal and external auditory canals are clear. Oropharynx with no redness, swelling, or masses, exudates, or evidence of obstruction, uvula midline. Mucous membranes moist. Neck: Trachea midline, no thyromegaly or masses palpated, and no cervical lymphadenopathy. Supple, full range of motion without nuchal rigidity, or vertebral point tenderness. No Meningismus. Chest/axilla: Normal chest wall appearance and motion. Nontender with no deformity. No lesions are appreciated. Cardiovascular: Regular rate and rhythm with a normal S1 and S2. No gallops, murmurs, or rubs. Normal PMI, no JVD. No pulse deficits. Respiratory: Lungs have equal breath sounds bilaterally, clear to auscultation and percussion. No rales, rhonchi or wheezes noted. No increased work of breathing, no retractions or nasal flaring. Abdomen/GI: Soft, non-tender, with normal bowel sounds. No distension or tympany. No guarding or rebound. No evidence of tenderness throughout. Skin: Warm, dry with normal turgor. Normal color with no rashes, no lesions, and no evidence of cellulitis. MS/ Extremity: Pulses equal, no cyanosis. Neurovascular intact. Full, normal range of motion. Neuro: Awake and alert, GCS 15, oriented to person, place, time, and situation. Cranial nerves II-XII grossly intact. Motor strength 5/5 in all extremities. Sensory grossly intact. Cerebellar exam normal. Normal gait. 14:42 ECG was reviewed by the Attending Physician. Vital Signs: 12:56 BP 154 / 91; Pulse 111; Resp 16; Temp 98.7; Pulse Ox 98% on R/A; Weight 77.11 kg; la1 Height 4 ft. 11 in. (149.86 cm); 13:00 BP 142 / 94; Pulse 99; Resp 19; Pulse Ox 100% on R/A; Pain 6/10; ca1 13:33 BP 128 / 85; Pulse 101; Resp 19; Pulse Ox 95% on R/A; ca1 13:45 BP 141 / 81; Pulse 107; Resp 21; Pulse Ox 99% ; jp3 14:00 BP 125 / 96; Pulse 83; Resp 18; Pulse Ox 100% ; jp3 15:26 Pulse 82; Resp 18; Pulse Ox 96% on R/A; mg2 15:53 BP 137 / 77; mg2 12:56 Body Mass Index 34.34 (77.11 kg, 149.86 cm) la1 MDM: 13:15 Patient medically screened. kb 14:18 Data reviewed: vital signs, nurses notes. Data interpreted: Pulse oximetry: on room air kb is 100 %. Interpretation: normal. 14:19 The patient was given aspirin in the Emergency Department. GINNY Risk Score: TOTAL SCORE kb = 0. ED course: HEART score: low . 15:20 Counseling: I had a detailed discussion with the patient and/or guardian regarding: the kb historical points, exam findings, and any diagnostic results supporting the discharge/admit diagnosis, lab results, radiology results, the need for further work-up and treatment in the hospital. ED course: Pt still having pain, will admit for obs. 15:36 Refusal of service: The patient/guardian displays adequate decision making capability kb and despite a detailed discussion of alternatives, benefits, risks, and consequences refuses: Admission to the hospital for further work-up and treatment. ED course: Pt does not want to be admitted. Wants to go home and will return for worsening symptoms or other concerns. . 08/29 13:16 Order name: Basic Metabolic Panel; Complete Time: 14:01 kb 08/29 13:16 Order name: CBC with Diff; Complete Time: 14:23 kb 08/29 13:16 Order name: LFT's; Complete Time: 14:01 kb 08/29 13:16 Order name: Magnesium; Complete Time: 14:01 kb 08/29 13:16 Order name: NT PRO-BNP; Complete Time: 14:01 kb 08/29 13:16 Order name: PT-INR; Complete Time: 14:13 kb 08/29 13:10 Order name: EKG - Nurse/Tech; Complete Time: 13:10 ca1 08/29 13:16 Order name: Troponin (emerg Dept Use Only); Complete Time: 14:01 kb 08/29 13:16 Order name: XRAY Chest (1 view); Complete Time: 14:23 kb 08/29 13:16 Order name: Cardiac monitoring; Complete Time: 13:17 kb 08/29 13:16 Order name: IV Saline Lock; Complete Time: 13:32 kb 08/29 13:16 Order name: Labs collected and sent; Complete Time: 13:32 kb 08/29 13:16 Order name: O2 Per Protocol; Complete Time: 13:17 kb 08/29 13:16 Order name: O2 Sat Monitoring; Complete Time: 13:17 kb EC:42 Rate is 102 beats/min. Rhythm is regular. QRS [place] is Normal. [place] interval is normal at kb 136 msec. QRS interval is normal at 82 msec. QT interval is normal at 366 msec. Administered Medications: 14:10 Drug: Ativan 0.5 mg Route: IVP; Site: left antecubital; ca1 15:41 Follow up: Response: No adverse reaction; Marked relief of symptoms mg2 14:31 Drug: Aspirin Chewable Tablet 324 mg Route: PO; ca1 15:40 Follow up: Response: No adverse reaction mg2 Disposition: 08/29/18 15:38 Discharged to Home. Impression: Chest pain, unspecified. - Condition is Stable. - Discharge Instructions: Nonspecific Chest Pain, [id number]. - Work release form, Medication Reconciliation Form, Thank You Letter, Antibiotic Education, Prescription Opioid Use form. - Follow up: Emergency Department; When: As needed; Reason: Worsening of condition. Follow up: Private Physician; When: 2 - 3 days; Reason: Recheck today's complaints, Continuance of care, Re-evaluation by your physician. Addendum: 08/31/2018 07:32 Co-signature as Attending Physician, Estuardo Gao MD I agree with the assessment and c alan plan of care. Signatures: Dispatcher [employer] Nathalia Glynn, SAWSMITH-C SAWSMITH-Estuardo Wills MD MD cha Attema, Lee RN RN la1 Caleb Nielson, NEVAEH RN mg2 Olga Alcala RN RN ca1 Corrections: (The following items were deleted from the chart) 08/29 15:55 15:38 08/29/2018 15:38 Discharged to Home. Impression: Chest pain, unspecified. mg2 Condition is Stable. Forms are Medication Reconciliation Form, Thank You Letter, Antibiotic Education, Prescription Opioid Use. Follow up: Emergency Department; When: As needed; Reason: Worsening of condition. Follow up: Private Physician; When: 2 - 3 days; Reason: Recheck today's complaints, Continuance of care, Re-evaluation by your physician. kb
[2018-08-29 16:21] VITALS: TEMP 98.7
[2018-08-29 16:27] VITALS: O2SAT 96
[2018-08-29 16:28] VITALS: BP 137/77
--- NOTE | 2018-09-01 11:40 | EKG ---
Test Date: 2018-08-29 Test Time: 13:06:47 Deli Bakery Clerk: CECE MEASUREMENT RESULTS: Intervals: Rate: 102 CO: 136 QRSD: 82 QT: 366 QTc: 477 [place]: P: 17 CO: 136 QRS: 17 T: 23 INTERPRETIVE STATEMENTS: Sinus tachycardia ST & T wave abnormality, consider anterior ischemia Abnormal ECG Compared to ECG 05/27/2018 00:45:37 Sinus rhythm no longer present Prolonged QT interval no longer present ST (T wave) deviation still present Possible ischemia still present Electronically Signed On 08-31-18 10:53:47 CDT by Roger Orellana
== END 2018-08-29 15:55 | disposition home or self-care (01) ==
LOC: ER 12:50
DX: R07.9 Chest pain, unspecified (principal); I10 Essential (primary) hypertension
CPT/HCPCS: 36415; 71045; 80048; 80076; 83735; 83880; 84484; 85025; 85610; 93005; 96374; 99285

== ENCOUNTER 2018-10-26 15:02 | Emergency (ER) | payer SELFPAY ==
--- NOTE | 2018-10-26 16:42 | ER ---
Nurse's Notes [facility] Name: Ngozi Bear Age: 38 yrs Sex: Female : 1980 Arrival Date: 10/26/2018 Time: 15:05 Bed Waiting Private MD: None, None Diagnosis: Presentation: 10/26 15:07 Presenting complaint: Patient states: i have this chest pain that started 30 mins ago, hj heavy type of feeling; radiating to L arm and tingling; reports dizziness; reports nausea;. Transition of care: patient was not received from another setting of care. Onset of symptoms was October 26, 2018. Risk Assessment: Do you want to hurt yourself or someone else? Patient reports no desire to harm self or others. Initial Sepsis Screen: Does the patient meet any 2 criteria? No. Patient's initial sepsis screen is negative. Does the patient have a suspected source of infection? No. Patient's initial sepsis screen is negative. Care prior to arrival: None. 15:07 Method Of Arrival: Ambulatory 15:07 Acuity: ALEXIA 3 hj SKIVER HEEL TAP: 15:10 LMP 10/07/2018 Historical: - Allergies: 15:09 No Known Allergies; hj - PMHx: 15:09 Anxiety; Depression; Hypertension; hj - PSHx: 15:09 None; Assessment: 16:15 Reassessment: called x 1. no reply;. hj 16:24 Reassessment: called again; no answer; will follow up;. hj 16:33 Reassessment: called again; no reply; will follow;. 16:40 Reassessment: pt not in lobby, did not answer phone call. Vital Signs: 15:09 BP 148 / 92; Pulse 87; Resp 18; Temp 98.8(O); Pulse Ox 98% on R/A; Weight 77.11 kg; hj Height 4 ft. 11 in. (149.86 cm); Pain 8/10; 15:09 Body Mass Index 34.34 (77.11 kg, 149.86 cm) ED Course: 15:05 Patient arrived in ED. mr 15:05 None, None is Private Physician. mr 15:08 Triage completed. hj 15:10 Arm band placed on right wrist. hj 16:23 Estuardo Gao MD is Attending Physician. tiffany Administered Medications: No medications were administered Outcome: 16:42 Patient left the ED. iw Signatures: Estuardo Gao MD MD cha Rivera, Coral mr Melanie Orellana RN RN iw Joaquin, Henry, RN RN hj Corrections: (The following items were deleted from the chart) 15:11 15:09 Pulse 87bpm; Resp 18bpm; Pulse Ox 98% RA; Temp 98.8F Oral; 77.11 kg; Height 4 ft. hj 11 in.; BMI: 34.3; Pain 8/10; hj
[2018-10-26 17:04] VITALS: BP 148/92; TEMP 98.8; O2SAT 98
--- NOTE | 2018-10-27 11:38 | EKG ---
Test Date: 2018-10-26 Test Time: 15:18:28 Filling Machine Set Up Mechanic: ANU MEASUREMENT RESULTS: Intervals: Rate: 85 [place]: 152 QRSD: 80 QT: 388 QTc: 461 [place]: P: 54 [place]: 152 QRS: 46 T: 5 INTERPRETIVE STATEMENTS: Normal sinus rhythm Nonspecific T wave abnormality Prolonged QT Abnormal ECG Compared to ECG 08/29/2018 13:06:47 T-wave abnormality now present Prolonged QT interval now present Sinus tachycardia no longer present ST (T wave) deviation no longer present Possible ischemia no longer present Electronically Signed On 10-27-18 11:36:03 CDT by Julio C Cartwright
== END 2018-10-26 16:42 | disposition left against medical advice (07) ==
LOC: ER 15:02
DX: Z53.21 Procedure and treatment not carried out due to patient leaving prior to being seen by health care provider (principal)
CPT/HCPCS: 93005; 99281

== ENCOUNTER 2018-12-28 13:27 | Emergency (ER) | payer OTHER ==
[2018-12-28] MEDS ORDERED: ACETAMINOPHEN 500 MG TAB ONE (15:16)
[2018-12-28 15:39] LABS: Absolute Lymphocytes (CBC) 1.8 K/uL (0.7-4.9); Basophils % 0.4 % (0-1.3); Hematocrit 36.2 % (36.0-45.0); Lymphocytes % 20.3 % (15.3-44.8); MPV 8.2 fL (7.6-11.3); RBC Red Blood Cell Count 4.18 M/uL (3.86-4.86)
[2018-12-28 15:47] LABS: Protime INR 1.04
--- NOTE | 2018-12-28 15:49 | RAD REPORT ---
EXAM DESCRIPTION: Chay Single View12/28/2018 2:59 pm CLINICAL HISTORY: Chest pain COMPARISON: August 2018 FINDINGS: The lungs appear clear of acute infiltrate. The heart is normal size IMPRESSION: No acute abnormalities displayed
[2018-12-28 15:56] LABS: ALT/SGPT 48 U/L (12-78); AST/SGOT 26 U/L (15-37); Albumin 3.5 g/dL (3.4-5.0); Alkaline Phosphatase 95 U/L (45-117); BUN Blood Urea Nitrogen 12 mg/dL (7-18); Bicarbonate 26 mmol/L (21-32); Bilirubin Direct < 0.1 mg/dL (0-0.2); Bilirubin Total 0.3 mg/dL (0.2-1.0); Glucose Level 93 mg/dL (74-106); Magnesium 2.1 mg/dL (1.8-2.4); NT PRO-BNP 27 pg/mL (<125); Potassium 3.7 mmol/L (3.5-5.1); Protein, Total 8.2 g/dL (6.4-8.2); Sodium Level 137 mmol/L (136-145); Troponin (Emerg Dept Use Only) < 0.02 ng/mL (0.0-0.045)
[2018-12-28] MEDS ORDERED: LORAZEPAM 0.5 MG TABLET ONE (16:35)
--- NOTE | 2018-12-28 17:57 | ER ---
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 Transition of care: patient was not received from another setting of care. Onset of symptoms was December 28, 2018. Risk Assessment: Do you want to hurt yourself or someone else? Patient reports no desire to harm self or others. Initial Sepsis Screen: Does the patient meet any 2 criteria? No. Patient's initial sepsis screen is negative. Does the patient have a suspected source of infection? No. Patient's initial sepsis screen is negative. Care prior to arrival: None. 13:37 Method Of Arrival: Ambulatory hb 13:37 Acuity: ALEXIA 3 hb Triage Assessment: 18:07 General: Behavior is cooperative. 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 - Social history:: Smoking status: Patient/guardian denies using tobacco. - Ebola Screening: : No symptoms or risks identified at this time. Screenin:33 Abuse screen: Denies threats or abuse. Nutritional screening: No deficits noted. tw2 Tuberculosis screening: No symptoms or risk factors identified. Fall Risk None identified. Assessment: 14:33 General: Appears in no apparent distress. obese, well groomed. Pain: Pain radiates to tw2 left jaw Pain began suddenly. Neuro: Level of Consciousness is awake, alert, obeys commands, Oriented to person, place, time, situation. Cardiovascular: Reports chest pain, Heart tones S1 S2 Patient's skin is warm and dry. Respiratory: Airway is patent Respiratory effort is even, unlabored, Respiratory pattern is regular, symmetrical, Breath sounds are clear bilaterally. GI: No signs and/or symptoms were reported involving the gastrointestinal system. Abdomen is round non-distended, obese, Bowel sounds present X 4 quads. Reports nausea. : No signs and/or symptoms were reported regarding the genitourinary system. EENT: No signs and/or symptoms were reported regarding the EENT system. Derm: No signs and/or symptoms reported regarding the dermatologic system. Musculoskeletal: Range of motion: intact in all extremities. 15:52 Reassessment: Patient appears in no apparent distress at this time. No changes from tw2 previously documented assessment. Patient and/or family updated on plan of care and expected duration. Pain level reassessed. Patient is alert, oriented x 3, equal unlabored respirations, skin warm/dry/pink. 17:00 Reassessment: Patient appears in no apparent distress at this time. No changes from tw2 previously documented assessment. Patient and/or family updated on plan of care and expected duration. Pain level reassessed. Patient is alert, oriented x 3, equal unlabored respirations, skin warm/dry/pink. 18:06 Reassessment: Patient appears in no apparent distress at this time. Patient and/or tw2 family updated on plan of care and expected duration. Pain level reassessed. Patient is alert, oriented x 3, equal unlabored respirations, skin warm/dry/pink. Patient states feeling better. Patient states symptoms have improved. Vital Signs: 13:38 BP 156 / 95; Pulse 82; Resp 16; Temp 98.3; Pulse Ox 9% on R/A; Weight 90.72 kg; Height hb 4 ft. 11 in. (149.86 cm); Pain 6/10; 14:41 BP 145 / 93; Pulse 76; Resp 22; Pulse Ox 98% on R/A; tw2 15:52 BP 147 / 103; Pulse 76; Resp 17; Pulse Ox 95% on R/A; tw2 16:13 BP 140 / 80; Pulse 78; Resp 21; Pulse Ox 97% on R/A; tw2 17:00 BP 143 / 82; Pulse 68; Resp 17; Pulse Ox 96% on R/A; tw2 18:06 BP 142 / 82; Pulse 74; Resp 17; Pulse Ox 98% on R/A; tw2 13:38 Body Mass Index 40.39 (90.72 kg, 149.86 cm) hb ED Course: 13:32 Patient arrived in ED. mr 13:32 JADEN RACIEL is Private Physician. mr 13:38 Triage completed. hb 13:38 Arm band placed on. hb 13:42 EKG completed in triage. Results shown to MD. hb 14:32 Ana Maria Bowser, RN is Primary Nurse. tw2 14:35 Bed in low position. Call light in reach. improvement engineer on. Pulse ox on. NIBP on. tw2 14:35 Patient maintains SpO2 saturation greater than 95% on room air. tw2 14:46 Rizwan Houston NP is PHCP. pm1 14:46 Ezra Hurt MD is Attending Physician. pm1 14:59 XRAY Chest (1 view) In Process Unspecified. EDMS 15:16 Missed attempt(s): 22 gauge in left forearm. blood collected and sent. Bleeding tw2 controlled, band aid applied, catheter tip intact. 18:07 No provider procedures requiring assistance completed. Patient did not have IV access tw2 during this emergency room visit. Administered Medications: 15:20 Drug: Tylenol 1000 mg Route: PO; tw2 15:53 Follow up: Response: No adverse reaction; Pain is decreased tw2 16:35 Drug: Ativan 0.5 mg Route: PO; tw2 18:00 Follow up: Response: Marked relief of symptoms; Anxiety decreased tw2 Outcome: 17:57 Discharge ordered by MD. pm1 18:07 Discharged to home ambulatory, with family. tw2 18:07 Condition: stable 18:07 Discharge instructions given to patient, family, Instructed on discharge instructions, follow up and referral plans. no drinking with medication, no driving heavy equipment, medication usage, Demonstrated understanding of instructions, follow-up care, medications, Prescriptions given X 1. 18:07 Patient left the ED. tw2 Signatures: Dispatcher [employer] EDPR Coral Chapman mr Rizwan Houston, DENITA SUPERVISOR LENS GENERATING pm1 Migdalia Jordan RN RN Ana Maria Bowser RN RN tw2 Corrections: (The following items were deleted from the chart) 14:40 14:33 GI: No signs and/or symptoms were reported involving the gastrointestinal system. tw2 Abdomen is round non-distended, obese, Bowel sounds present X 4 quads. tw2
--- NOTE | 2018-12-28 17:58 | EDPHYS ---
Physician Documentation [facility] Name: Ngozi Bear Age: 38 yrs Sex: Female : 1980 Arrival Date: 12/28/2018 Time: 13:32 Bed 2 Private MD: RACIEL STANLEY ED Physician Ezra Hurt HPI: 12/28 14:46 This 38 yrs old Female presents to ER via Ambulatory with complaints of Chest pm1 Pain. 14:46 The patient or guardian reports chest pain that is located primarily in the mid-sternal pm1 area. Onset: today, 30 minute(s) ago. The pain radiates to the left arm, Associated signs and symptoms: Pertinent negatives: abdominal pain, diaphoresis, dizziness, nausea, shortness of breath, vomiting. The chest pain is described as a pressure. Duration: The patient or guardian reports a single episode. The patient has experienced similar episodes in the past, multiple times, today's symptoms are similar, to previous anxiety attacks. The patient has not recently seen a physician. 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 - Social history:: Smoking status: Patient/guardian denies using tobacco. - Ebola Screening: : No symptoms or risks identified at this time. ROS: 14:46 Constitutional: Negative for fever, chills, and weight loss, Eyes: Negative for injury, pm1 pain, redness, and discharge, ENT: Negative for injury, pain, and discharge, Neck: Negative for injury, pain, and swelling. 14:46 Respiratory: Negative for shortness of breath, cough, wheezing, and pleuritic chest pain, Abdomen/GI: Negative for abdominal pain, nausea, vomiting, diarrhea, and constipation, Back: Negative for injury and pain, : Negative for injury, bleeding, discharge, and swelling, MS/Extremity: Negative for injury and deformity, Skin: Negative for injury, rash, and discoloration, Neuro: Negative for headache, weakness, numbness, tingling, and seizure. 14:46 Cardiovascular: Positive for chest pain, Negative for edema, palpitations. 14:46 Psych: Positive for anxiety. Exam: 14:46 Constitutional: This is a well developed, well nourished patient who is awake, alert, pm1 and in no acute distress. Head/Face: Normocephalic, atraumatic. Neck: Trachea midline, no thyromegaly or masses palpated, and no cervical lymphadenopathy. Supple, full range of motion without nuchal rigidity, or vertebral point tenderness. No Meningismus. Chest/axilla: Normal chest wall appearance and motion. Nontender with no deformity. No lesions are appreciated. Cardiovascular: Regular rate and rhythm with a normal S1 and S2. No gallops, murmurs, or rubs. Normal PMI, no JVD. No pulse deficits. Respiratory: Lungs have equal breath sounds bilaterally, clear to auscultation and percussion. No rales, rhonchi or wheezes noted. No increased work of breathing, no retractions or nasal flaring. Abdomen/GI: Soft, non-tender, with normal bowel sounds. No distension or tympany. No guarding or rebound. No evidence of tenderness throughout. Back: No spinal tenderness. No costovertebral tenderness. Full range of motion. Skin: Warm, dry with normal turgor. Normal color with no rashes, no lesions, and no evidence of cellulitis. MS/ Extremity: Pulses equal, no cyanosis. Neurovascular intact. Full, normal range of motion. 14:46 Neuro: Orientation: is normal, Motor: is normal, moves all fours. Vital Signs: 13:38 BP 156 / 95; Pulse 82; Resp 16; Temp 98.3; Pulse Ox 9% on R/A; Weight 90.72 kg; Height hb 4 ft. 11 in. (149.86 cm); Pain 6/10; 14:41 BP 145 / 93; Pulse 76; Resp 22; Pulse Ox 98% on R/A; tw2 15:52 BP 147 / 103; Pulse 76; Resp 17; Pulse Ox 95% on R/A; tw2 16:13 BP 140 / 80; Pulse 78; Resp 21; Pulse Ox 97% on R/A; tw2 17:00 BP 143 / 82; Pulse 68; Resp 17; Pulse Ox 96% on R/A; tw2 18:06 BP 142 / 82; Pulse 74; Resp 17; Pulse Ox 98% on R/A; tw2 13:38 Body Mass Index 40.39 (90.72 kg, 149.86 cm) hb MDM: 14:46 Patient medically screened. pm1 16:31 Data reviewed: vital signs. Data interpreted: Pulse oximetry: on room air is 97 %. pm1 Interpretation: normal. 16:31 Counseling: I had a detailed discussion with the patient and/or guardian regarding: lab pm1 results, radiology results. 18:00 GINNY Risk Score: TOTAL SCORE = 0. pm1 18:04 Counseling: I had a detailed discussion with the patient and/or guardian regarding: the pm1 historical points, exam findings, and any diagnostic results supporting the discharge/admit diagnosis, the need for outpatient follow up, a family practitioner, a psychiatrist, to return to the emergency department if symptoms worsen or persist or if there are any questions or concerns that arise at home. ED course: Patient's chest pain resolved with Ativan. 18:04 ED course: Heart score = 0. Patient's chest pain the same as her prior anxiety attacks pm1 and patient's pain resolved with Ativan. 12/28 14:46 Order name: Basic Metabolic Panel; Complete Time: 16:14 pm12/28 14:46 Order name: CBC with Diff; Complete Time: 16:14 pm12/28 14:46 Order name: LFT's; Complete Time: 16:14 pm12/28 14:46 Order name: Magnesium; Complete Time: 16:14 pm12/28 14:46 Order name: NT PRO-BNP; Complete Time: 16:14 pm12/28 14:46 Order name: PT-INR; Complete Time: 16:14 pm12/28 14:32 Order name: EKG; Complete Time: 14:34 tw2 12/28 14:32 Order name: EKG - Nurse/Tech; Complete Time: 14:33 tw2 12/28 14:46 Order name: Troponin (emerg Dept Use Only); Complete Time: 16:14 pm1 12/28 14:46 Order name: XRAY Chest (1 view); Complete Time: 16:14 pm1 12/28 14:46 Order name: Cardiac monitoring; Complete Time: 15:15 pm12/28 14:46 Order name: Labs collected and sent; Complete Time: 15:15 pm1 12/28 14:46 Order name: O2 Per Protocol; Complete Time: 15:06 pm1 12/28 14:46 Order name: O2 Sat Monitoring; Complete Time: 15:06 pm1 Administered Medications: 15:20 Drug: Tylenol 1000 mg Route: PO; tw2 15:53 Follow up: Response: No adverse reaction; Pain is decreased tw2 16:35 Drug: Ativan 0.5 mg Route: PO; tw2 18:00 Follow up: Response: Marked relief of symptoms; Anxiety decreased tw2 Disposition: 12/29 08:01 Co-signature as Attending Physician, Ezra Hurt MD I agree with the assessment and wa plan of care. Disposition: 12/28/18 17:57 Discharged to Home. Impression: Chest pain, unspecified. - Condition is Stable. - Discharge Instructions: Nonspecific Chest Pain, Generalized Anxiety Disorder. - Prescriptions for Ativan 0.5 mg Oral Tablet - take 1 tablet by ORAL route every 8 hours As needed; 10 tablet. - Medication Reconciliation Form, Thank You Letter, Antibiotic Education, Prescription Opioid Use form. - Follow up: Emergency Department; When: As needed; Reason: Worsening of condition. Follow up: Private Physician; When: 2 - 3 days; Reason: Recheck today's complaints, Continuance of care, Re-evaluation by your physician. - Problem is new. - Symptoms have improved. Signatures: Dispatcher [employer] EDMS Rizwan Houston, DENITA OIL WELL LOGGER pm1 Migdalia Jordan RN RN Ana Maria Bowser RN RN tw2 Ezra Hurt MD MD mt Corrections: (The following items were deleted from the chart) 12/28 18:07 17:57 12/28/2018 17:57 Discharged to Home. Impression: Chest pain, unspecified. tw2 Condition is Stable. Forms are Medication Reconciliation Form, Thank You Letter, Antibiotic Education, Prescription Opioid Use. Follow up: Emergency Department; When: As needed; Reason: Worsening of condition. Follow up: Private Physician; When: 2 - 3 days; Reason: Recheck today's complaints, Continuance of care, Re-evaluation by your physician. Problem is new. Symptoms have improved. pm1
[2018-12-28 18:42] VITALS: TEMP 98.3
[2018-12-28 18:49] VITALS: BP 142/82; O2SAT 98
--- NOTE | 2018-12-29 07:38 | EKG ---
Test Date: 2018-12-28 Test Time: 13:44:01 Aerospace Physiological Technician: MCKENZIE MEASUREMENT RESULTS: Intervals: Rate: 84 OK: 144 QRSD: 80 QT: 384 QTc: 453 Langtry: P: 42 OK: 144 QRS: 20 T: -2 INTERPRETIVE STATEMENTS: Normal sinus rhythm T wave abnormality, consider anterior ischemia Abnormal ECG Compared to ECG 10/26/2018 15:18:28 Possible ischemia now present Prolonged QT interval no longer present T-wave abnormality still present Electronically Signed On 12-29-18 07:36:57 CDT by Roger Orellana
== END 2018-12-28 18:07 | disposition home or self-care (01) ==
LOC: ER 13:27
DX: R07.9 Chest pain, unspecified (principal); F41.9 Anxiety disorder, unspecified; I10 Essential (primary) hypertension
CPT/HCPCS: 36415; 71045; 80048; 80076; 83735; 83880; 84484; 85025; 85610; 93005; 99285

== ENCOUNTER 2019-03-10 23:54 | Emergency (ER) | payer OTHER ==
[2019-03-11] MEDS ORDERED: DIAZEPAM 2 MG TABLET ONE (00:17)
--- NOTE | 2019-03-11 00:56 | ER ---
Nurse's Notes [facility] Name: Ngozi Bear Age: 38 yrs Sex: Female : 1980 Arrival Date: 03/10/2019 Time: 23:56 Bed 5 Private MD: Diagnosis: Chest pain, unspecified;Anxiety disorder, unspecified Presentation: 03/10 23:58 Presenting complaint: Patient states: I am having chest pain, feels like pressure, does la1 not radiate. Pt states this has happened many times and they always say it is anxiety but does not feel anxious. Transition of care: patient was not received from another setting of care. Onset of symptoms was March 10, 2019. Risk Assessment: Do you want to hurt yourself or someone else? Patient reports no desire to harm self or others. Initial Sepsis Screen: Does the patient meet any 2 criteria? No. Patient's initial sepsis screen is negative. Does the patient have a suspected source of infection? No. Patient's initial sepsis screen is negative. Care prior to arrival: None. 23:58 Method Of Arrival: Ambulatory la1 23:58 Acuity: ALEXIA 3 la1 Historical: - Allergies: 23:58 No Known Allergies; la1 - PMHx: 23:58 Anxiety; Depression; Hypertension; la1 - PSHx: 23:58 Appendectomy; la1 - Immunization history:: Adult Immunizations up to date. - Social history:: Smoking status: Patient uses tobacco products, denies chronic smoking, but will smoke occasionally. - Ebola Screening: : No symptoms or risks identified at this time. - Family history:: not pertinent. - Hospitalizations: : No recent hospitalization is reported. Screenin/17 00:00 Abuse screen: Denies threats or abuse. Nutritional screening: No deficits noted. ea Tuberculosis screening: No symptoms or risk factors identified. Fall Risk None identified. Assessment: 00:00 General: Appears in no apparent distress. Behavior is anxious. Pain: Complains of pain ea in chest. Neuro: Level of Consciousness is awake, alert, obeys commands, Oriented to person, place, time. Cardiovascular: Patient's skin is warm and dry. Respiratory: Airway is patent Respiratory effort is even, unlabored, Respiratory pattern is regular, symmetrical. Derm: Skin is pink, warm \T\ dry. 01:08 Reassessment: Patient and/or family updated on plan of care and expected duration. Pain ea level reassessed. Patient is alert, oriented x 3, equal unlabored respirations, skin warm/dry/pink. Discharge instruction given to patient, verbalized the understanding of instruction. Pt left ED ambulatory accompanied by family Patient states feeling better. Vital Signs: 03/10 23:58 BP 151 / 91; Pulse 90; Resp 16; Temp 98.4; Pulse Ox 100% on R/A; Weight 90.72 kg; la1 Height 4 ft. 11 in. (149.86 cm); 03/11 00:30 BP 150 / 80; Pulse 82; Resp 18; Pulse Ox 99% ; ea 03/10 23:58 Body Mass Index 40.39 (90.72 kg, 149.86 cm) la1 ED Course: 03/10 23:56 Patient arrived in ED. leonela 23:57 Robin Cota MD is Attending Physician. rn 23:57 Arm band placed on left wrist. la1 23:59 Triage completed. la1 03/11 00:00 Patient has correct armband on for positive identification. Placed in gown. Bed in low ea position. Call light in reach. 00:14 Dawna Mullins, RN is Primary Nurse. ea 00:56 XRAY Chest (1 view) In Process Unspecified. EDMS 01:09 No provider procedures requiring assistance completed. Patient did not have IV access ea during this emergency room visit. Administered Medications: 00:26 Drug: Valium 2 mg Route: PO; ea 01:00 Follow up: Response: No adverse reaction ea Outcome: 00:55 Discharge ordered by . rn 01:09 Discharged to home ambulatory, with family. ea 01:09 Condition: stable 01:09 Discharge instructions given to patient, Instructed on discharge instructions, follow up and referral plans. Demonstrated understanding of instructions, follow-up care. 01:09 Patient left the ED. ea Signatures: Dispatcher [employer] Tina Aggarwal Roman, MD MD rn Attema, Lee, RN RN la1 Dawna Mullins RN RN ea
--- NOTE | 2019-03-11 00:56 | EDPHYS ---
Physician Documentation [facility] Name: Ngozi Bear Age: 38 yrs Sex: Female : 1980 Arrival Date: 03/10/2019 Time: 23:56 Bed 5 Private MD: ED Physician Robin Cota HPI: 03/11 00:49 This 38 yrs old Female presents to ER via Ambulatory with complaints of chest rn tightness. 00:49 The patient or guardian reports chest pain that is located primarily in the substernal rn area. Onset: "years ago". The pain does not radiate. Associated signs and symptoms: The patient has no apparent associated signs or symptoms, Pertinent negatives: abdominal pain, cough, diaphoresis, dizziness, lower extremity swelling, palpitations, recent travel, shortness of breath, syncope, vomiting. The chest pain is described as a heaviness. Duration: The patient or guardian reports multiple episodes, that are intermittent. Modifying factors: The symptoms are alleviated by getting up, walking around, and changing position. Severity of pain: At its worst the pain was mild in the emergency department the pain has improved. The patient has experienced similar episodes in the past, chronically. The patient has been recently seen at the [facility] Emergency Department. Reports this has been happening for years, now daily, told before was anxiety, took herself off depression and anxiety meds because didn't like how they made her feel. No fever/cough/sob. + smoker. Reports better when doesn't think about it and with exertion/walking around. NO famhx of early cardiac disease. . Historical: - Allergies: 03/10 23:58 No Known Allergies; la1 - PMHx: 23:58 Anxiety; Depression; Hypertension; la1 - PSHx: 23:58 Appendectomy; la1 - Immunization history:: Adult Immunizations up to date. - Social history:: Smoking status: Patient uses tobacco products, denies chronic smoking, but will smoke occasionally. - Ebola Screening: : No symptoms or risks identified at this time. - Family history:: not pertinent. - Hospitalizations: : No recent hospitalization is reported. ROS: 03/11 00:49 Constitutional: Negative for fever, chills, and weight loss, Eyes: Negative for injury, rn pain, redness, and discharge, Neck: Negative for injury, pain, and swelling, Cardiovascular: Negative for edema Respiratory: Negative for shortness of breath, cough, wheezing, and pleuritic chest pain, Abdomen/GI: Negative for abdominal pain, nausea, vomiting, diarrhea, and constipation, MS/Extremity: Negative for injury and deformity, Skin: Negative for injury, rash, and discoloration, Neuro: Negative for headache, weakness, numbness, tingling, and seizure. Exam: 00:49 Constitutional: This is a well developed, well nourished patient who is awake, alert, rn and in no acute distress. Ambulatory to room without difficulty or assistance. Head/Face: Normocephalic, atraumatic. Eyes: Pupils equal round and reactive to light, extra-ocular motions intact. Lids and lashes normal. Conjunctiva and sclera are non-icteric and not injected. Cornea within normal limits. Periorbital areas with no swelling, redness, or edema. ENT: MMM Cardiovascular: Regular rate and rhythm, no murmur. No pulse deficits. Respiratory: Lungs have equal breath sounds bilaterally, clear to auscultation. No rales, rhonchi or wheezes noted. No increased work of breathing, no retractions or nasal flaring. Abdomen/GI: soft, non-tender Skin: Warm, dry with normal turgor. Normal color with no rashes, no lesions, and no evidence of cellulitis. MS/ Extremity: Pulses equal, no cyanosis. Neurovascular intact. Full, normal range of motion. Equal circumference. Neuro: Awake and alert, GCS 15, oriented to person, place, time, and situation. Cranial nerves II-XII grossly intact. Motor strength 5/5 in all extremities. Sensory grossly intact. Cerebellar exam normal. Normal gait. Vital Signs: 03/10 23:58 BP 151 / 91; Pulse 90; Resp 16; Temp 98.4; Pulse Ox 100% on R/A; Weight 90.72 kg; la1 Height 4 ft. 11 in. (149.86 cm); 03/11 00:30 BP 150 / 80; Pulse 82; Resp 18; Pulse Ox 99% ; ea 03/10 23:58 Body Mass Index 40.39 (90.72 kg, 149.86 cm) la1 MDM: 03/10 23:57 Patient medically screened. rn 03/11 00:49 Differential diagnosis: acute pericarditis, anxiety, chest wall pain, costochondritis, rn esophagitis, gastritis, gastroesophageal reflux disease (GERD), pleurisy, pneumothorax. HEART Score: History: Slightly Suspicious (0), ECG: Normal (0), Age: < or = 45 years (0), Risk Factors: No Risk Factors Known (0), Total Score = 0. The patient's pulmonary embolism risk score was calculated as follows: No Risks (0 Pts) Total Score: 0-2 points. This patient was found to be at low risk for a pulmonary embolism by using the Well's assessment criteria. Data reviewed: vital signs, nurses notes, old medical records, EKG, radiologic studies, plain films. Counseling: I had a detailed discussion with the patient and/or guardian regarding: the historical points, exam findings, and any diagnostic results supporting the discharge/admit diagnosis, radiology results, the need for outpatient follow up, to return to the emergency department if symptoms worsen or persist or if there are any questions or concerns that arise at home. Response to treatment: the patient's symptoms have mildly improved after treatment, and as a result, I will discharge patient. Special discussion: I discussed with the patient/guardian in detail that at this point there is no indication for admission to the hospital. It is understood, however, that if the symptoms persist or worsen the patient needs to return immediately for re-evaluation. Based on the history and exam findings, there is no indication for further emergent testing or inpatient evaluation. I discussed with the patient/guardian the need to see the primary care provider for further evaluation of the symptoms. I discussed with the patient/guardian the need to see the psychiatrist for further evaluation of the symptoms. 00:49 ED course: NO change in ECG, happening for years, just more frequent, and no longer rn taking psychiatric meds. Offered bloodwork and further eval, she was content without our conversation and my recommendations regarding the subject, and requests only ecg and cxr since this happens frequently and already feeling better. . 03/11 00:11 Order name: XRAY Chest (1 view) rn 03/11 00:11 Order name: EKG; Complete Time: 00:12 rn 03/11 00:11 Order name: EKG - Nurse/Tech; Complete Time: 00:26 rn Administered Medications: 00:26 Drug: Valium 2 mg Route: PO; ea :00 Follow up: Response: No adverse reaction ea Disposition: 03/11/19 00:55 Discharged to Home. Impression: Chest pain, unspecified, Anxiety disorder, unspecified. - Condition is Stable. - Discharge Instructions: Nonspecific Chest Pain, Steps to Quit Smoking, Generalized Anxiety Disorder. - Medication Reconciliation Form, Thank You Letter, Antibiotic Education, Prescription Opioid Use, Work release form, Family Work Release form. - Follow up: Private Physician; When: As needed; Reason: Recheck today's complaints, Re-evaluation by your physician. - Problem is chronic. - Symptoms have improved. Signatures: Dispatcher [employer] EDRobin Rodarte MD MD rn Attema, Lee, RN RN la1 Antunez, Elena, RN RN ea Corrections: (The following items were deleted from the chart) 01:09 00:55 03/11/2019 00:55 Discharged to Home. Impression: Chest pain, unspecified; Anxiety ea disorder, unspecified. Condition is Stable. Forms are Medication Reconciliation Form, Thank You Letter, Antibiotic Education, Prescription Opioid Use. Follow up: Private Physician; When: As needed; Reason: Recheck today's complaints, Re-evaluation by your physician. Problem is chronic. Symptoms have improved. rn
[2019-03-11 01:15] VITALS: BP 151/91; TEMP 98.4; O2SAT 100
--- NOTE | 2019-03-11 06:42 | RAD REPORT ---
EXAM DESCRIPTION: RAD - Chest Single View - 03/11/2019 12:56 am CLINICAL HISTORY: Chest pain COMPARISON: December 28 TECHNIQUE: AP portable chest image was obtained 0029 hours . FINDINGS: Lungs are clear. Heart and vasculature are normal. No measurable pleural effusion and no p neumothorax. No acute bony abnormality seen. No acute aortic findings suspected. No significant inter lorie change. IMPRESSION: No acute cardiopulmonary process.
--- NOTE | 2019-03-11 10:18 | EKG ---
Test Date: 2019-03-11 Test Time: 00:20:58 Wind Commissioning Technician: TARYN MEASUREMENT RESULTS: Intervals: Rate: 81 VA: 152 QRSD: 84 QT: 400 QTc: 464 [place]: P: 49 VA: 152 QRS: 15 T: 17 INTERPRETIVE STATEMENTS: Normal sinus rhythm nst Abnormal ECG Compared to ECG 12/28/2018 13:44:01 T-wave abnormality still present Electronically Signed On 03-11-19 10:18:16 CDT by Julio C Cartwright
== END 2019-03-11 01:09 | disposition home or self-care (01) ==
LOC: ER 23:54
DX: F41.9 Anxiety disorder, unspecified (principal); I10 Essential (primary) hypertension; Z72.0 Tobacco use
CPT/HCPCS: 71045; 93005; 99283

== ENCOUNTER 2019-05-12 11:16 | Emergency (ER) | payer SELFPAY ==
--- OUTSIDE RECORDS SUMMARY | 2019-05-12 11:18 | XMS REPORT ---
:1980 [facility] Address [address] [place] [address] [address] [place] [address] Care Team Providers Name Role Phone Unavailable Unavailable Unavailable Problems This patient has no known problems. Allergies, Adverse Reactions, Alerts This patient has no known allergies or adverse reactions. Medications This patient has no known medications.
--- NOTE | 2019-05-12 11:56 | EKG ---
Test Date: 2019-05-12 Test Time: 11:26:15 Special Population Paraprofessional: MCKENZIE MEASUREMENT RESULTS: Intervals: Rate: 91 KS: 146 QRSD: 80 QT: 386 QTc: 474 [place]: P: 50 KS: 146 QRS: 31 T: 15 INTERPRETIVE STATEMENTS: Normal sinus rhythm T wave abnormality, non specific Prolonged QT Abnormal ECG Compared to ECG 03/11/2019 00:20:58 T-wave abnormality still present Prolonged QT interval now present Electronically Signed On 05-12-19 11:55:55 SWEEPER BRUSH MAKER MACHINE by Roger Orellana
[2019-05-12 12:12] LABS: Absolute Lymphocytes (CBC) 1.1 K/uL (0.7-4.9); Basophils % 0.5 % (0-1.3); Hematocrit 36.1 % (36.0-45.0); MPV 7.9 fL (7.6-11.3)
--- NOTE | 2019-05-12 12:19 | RAD REPORT ---
EXAM DESCRIPTION: RAD - Chest Single View - 05/12/2019 12:10 pm CLINICAL HISTORY: Chest pain COMPARISON: March 11, 2019 TECHNIQUE: AP portable chest image was obtained 1203 hours . FINDINGS: Lungs are clear. Heart and vasculature are normal. No measurable pleural effusion and no p neumothorax. No acute bony abnormality seen. No acute aortic findings suspected. IMPRESSION: No acute cardiopulmonary process.
[2019-05-12 12:20] LABS: Protime INR 1.02
[2019-05-12 12:21] LABS: ALT/SGPT 126 U/L (12-78); AST/SGOT 92 U/L (15-37); Albumin 3.7 g/dL (3.4-5.0); Alkaline Phosphatase 100 U/L (45-117); BUN Blood Urea Nitrogen 11 mg/dL (7-18); Bicarbonate 27 mmol/L (21-32); Bilirubin Direct 0.2 mg/dL (0-0.2); Bilirubin Total 0.3 mg/dL (0.2-1.0); Glucose Level 118 mg/dL (74-106); Magnesium 2.2 mg/dL (1.8-2.4); NT PRO-BNP 28 pg/mL (<125); Protein, Total 8.4 g/dL (6.4-8.2); Sodium Level 140 mmol/L (136-145); Troponin (Emerg Dept Use Only) < 0.02 ng/mL (0.0-0.045)
[2019-05-12] MEDS ORDERED: ONDANSETRON 4 MG/2 ML VIAL ONE (12:27)
[2019-05-12] MEDS ORDERED: MORPHINE 2 MG/ML SYR ONE (12:27)
[2019-05-12] MEDS ORDERED: HYDROCODONE/APAP 7.5/325 MG TAB ONE (15:14)
[2019-05-12] MEDS ORDERED: KETOROLAC 30 MG/ML INJ ONE (15:17)
--- NOTE | 2019-05-12 18:08 | EDPHYS ---
Physician Documentation [facility] Name: Ngozi Bear Age: 39 yrs Sex: Female : 1980 Arrival Date: 05/12/2019 Time: 11:18 Bed 5 Private MD: ED Physician Flo Motta HPI: 05/12 11:40 This 39 yrs old Female presents to ER via Ambulatory with complaints of Chest kdr Pain. 11:40 The patient or guardian reports chest pain that is located primarily in the substernal kdr area, chest diffusely. Onset: suddenly, this morning, at 10:30. The pain radiates to the left shoulder, left neck, right neck, left jaw, right jaw. Associated signs and symptoms: Pertinent positives: diaphoresis, nausea, shortness of breath, Pertinent negatives: abdominal pain, cough, dizziness, headache, lower extremity pain, lower extremity swelling, lightheadedness, nausea, near syncope, palpitations, recent travel, syncope. The chest pain is described as aching, burning, dull, Tingling. Duration: The patient or guardian reports multiple episodes, that are intermittent, that wax and wane, with no pattern. 16:41 Modifying factors: The symptoms are alleviated by nothing. the symptoms are aggravated kdr by nothing. Severity of pain: At its worst the pain was mild moderate just prior to arrival, in the emergency department the pain is unchanged. The patient has experienced similar episodes in the past, a few times, The patient was seen here a few weeks ago for a similar but not same problem. She states that today the pain is more severe and as noted above . 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 - Social history:: Smoking status: Patient/guardian denies using tobacco. - Ebola Screening: : Patient negative for fever greater than or equal to 101.5 degrees Fahrenheit, and additional compatible Ebola Virus Disease symptoms Patient denies exposure to infectious person Patient denies travel to an Ebola-affected area in the 21 days before illness onset No symptoms or risks identified at this time. ROS: 16:41 Constitutional: Negative for fever, chills, and weight loss, Eyes: Negative for injury, kdr pain, redness, and discharge, ENT: Negative for injury, pain, and discharge, Neck: Negative for injury, pain, and swelling, Respiratory: Negative for shortness of breath, cough, wheezing, and pleuritic chest pain, Abdomen/GI: Negative for abdominal pain, nausea, vomiting, diarrhea, and constipation, Back: Negative for injury and pain, : Negative for injury, bleeding, discharge, and swelling, MS/Extremity: Negative for injury and deformity, Skin: Negative for injury, rash, and discoloration, Neuro: Negative for headache, weakness, numbness, tingling, and seizure activity. Psych: Negative for depression, anxiety, suicide ideation, homicidal ideation, and hallucinations, Allergy/Immunology: Negative for hives, rash, and allergies, Endocrine: Negative for neck swelling, polydipsia, polyuria, polyphagia, and marked weight changes, Hematologic/Lymphatic: Negative for swollen nodes, abnormal bleeding, and unusual bruising. 16:41 Cardiovascular: Positive for chest pain, of the anterior aspect of right upper chest, anterior aspect of left upper chest, mid-sternal area, right breast and left breast. Exam: 16:41 Constitutional: This is a well developed, well nourished obese patient who is awake, kdr alert, and in no acute distress. Head/Face: Normocephalic, atraumatic. Eyes: Pupils equal round and reactive to light, extra-ocular motions intact. Lids and lashes normal. Conjunctiva and sclera are non-icteric and not injected. Cornea within normal limits. Periorbital areas with no swelling, redness, or edema. Neck: Trachea midline, no thyromegaly or masses palpated, and no cervical lymphadenopathy. Supple, full range of motion without nuchal rigidity, or vertebral point tenderness. No Meningismus. Chest/axilla: Normal chest wall appearance and motion. Nontender with no deformity. No lesions are appreciated. Cardiovascular: Regular rate and rhythm with a normal S1 and S2. No gallops, murmurs, or rubs. Normal PMI, no JVD. No pulse deficits. Respiratory: Lungs have equal breath sounds bilaterally, clear to auscultation and percussion. No rales, rhonchi or wheezes noted. No increased work of breathing, no retractions or nasal flaring. Abdomen/GI: Soft, non-tender, with normal bowel sounds. No distension or tympany. No guarding or rebound. No evidence of tenderness throughout. Back: No spinal tenderness. No costovertebral tenderness. Full range of motion. Skin: Warm, dry with normal turgor. Normal color with no rashes, no lesions, and no evidence of cellulitis. MS/ Extremity: Pulses equal, no cyanosis. Neurovascular intact. Full, normal range of motion. Neuro: Awake and alert, GCS 15, oriented to person, place, time, and situation. Cranial nerves II-XII grossly intact. Motor strength 5/5 in all extremities. Sensory grossly intact. Cerebellar exam normal. Normal gait. Psych: Awake, alert, with orientation to person, place and time. Behavior, mood, and affect are within normal limits. Vital Signs: 11:26 BP 167 / 73; Pulse 93; Resp 16; Temp 98.1; Pulse Ox 100% ; Weight 90.72 kg; Height 4 hb ft. 11 in. (149.86 cm); Pain 7/10; 11:42 BP 142 / 93; Pulse 87; Resp 17; Pulse Ox 98% ; sv 12:15 BP 147 / 90; Pulse 89; Resp 23; Pulse Ox 97% ; sv 13:20 BP 146 / 86; Pulse 81; Resp 17; Pulse Ox 97% ; sv 13:52 BP 143 / 88; Pulse 83; Resp 19; Pulse Ox 97% ; sv 14:30 BP 138 / 88; Pulse 81; Resp 19; Pulse Ox 95% ; sv 15:15 BP 153 / 94; Pulse 86; Resp 17; Pulse Ox 95% ; sv 16:46 BP 149 / 92; Pulse 74; Resp 20; Pulse Ox 97% ; sv 17:30 BP 158 / 92; Pulse 77; Resp 19; Pulse Ox 98% ; sv 11:26 Body Mass Index 40.39 (90.72 kg, 149.86 cm) hb MDM: 16:41 Data reviewed: vital signs, nurses notes, lab test result(s), EKG, radiologic studies. kdr Counseling: I had a detailed discussion with the patient and/or guardian regarding: the historical points, exam findings, and any diagnostic results supporting the discharge/admit diagnosis, lab results, radiology results. 18:06 Patient medically screened. kdr 05/12 11:28 Order name: Basic Metabolic Panel; Complete Time: 12:55 kdr 05/12 11:28 Order name: CBC with Diff; Complete Time: 12:55 kdr 05/12 11:28 Order name: LFT's; Complete Time: 12:55 kdr 05/12 11:28 Order name: Magnesium; Complete Time: 12:55 kdr 05/12 11:28 Order name: NT PRO-BNP; Complete Time: 12:55 kdr 05/12 11:28 Order name: PT-INR; Complete Time: 12:55 kdr 05/12 11:28 Order name: Troponin (emerg Dept Use Only); Complete Time: 12:55 kdr 05/12 11:28 Order name: XRAY Chest (1 view); Complete Time: 12:55 kdr 05/12 12:56 Order name: Troponin (emerg Dept Use Only): 2 hours from first draw; Complete Time: kdr 14:05/12 14:20 Interpretation: TROPED 0.03. kdr 05/12 14:21 Order name: Troponin (emerg Dept Use Only); Complete Time: 18:01 kdr 05/12 11:21 Order name: EKG; Complete Time: 11:22 sg 05/12 11:28 Order name: Cardiac monitoring; Complete Time: 11:41 kdr 05/12 11:28 Order name: EKG - Nurse/Tech; Complete Time: 11:42 kdr 05/12 11:28 Order name: IV Saline Lock; Complete Time: 12:22 kdr 05/12 11:28 Order name: Labs collected and sent; Complete Time: 12:22 kdr 05/12 11:28 Order name: O2 Per Protocol; Complete Time: 11:42 kdr 05/12 11:28 Order name: O2 Sat Monitoring; Complete Time: 11:42 kdr Administered Medications: 12:25 Drug: Zofran 4 mg Route: IVP; Site: right antecubital; sg 12:25 Drug: morphine 2 mg Route: IVP; Site: right antecubital; sg 13:16 Follow up: Response: No adverse reaction; Pain is unchanged, physician notified; RASS: sg Alert and Calm (0) 12:41 Not Given (Duplicate Order): morphine 2 mg IM once; RASS on ADMIN: Combtv4, Very sg Agttd3, Agttd2, Rstlss1, AlertClm0, Drwsy-1, Lt Sdtn-2, Mod Sdtn-3, Dp Sdtn-4, UnArsble-5 15:17 Drug: [place] (7.5 mg-325 mg) 1 tabs Route: PO; hb 15:17 Drug: TORadol - Ketorolac 15 mg Route: IVP; Site: right antecubital; hb 18:22 Drug: traMADol 50 mg Route: PO; hb 18:22 Follow up: Response: Medication administered at discharge. hb Disposition: 05/12/19 18:06 Discharged to Home. Impression: Chest pain, unspecified. - Condition is Stable. - Discharge Instructions: Nonspecific Chest Pain, [id number]-bl-[id number]. - Prescriptions for Tramadol 50 mg Oral Tablet - take 1 tablet by ORAL route every 8 hours as needed; 12 tablet. - Medication Reconciliation Form, Thank You Letter, Work release form form. - Follow up: Private Physician; When: 2 - 3 days; Reason: If symptoms return, Further diagnostic work-up, Recheck today's complaints, Continuance of care, Re-evaluation by your physician. - Problem is new. - Symptoms have improved. Signatures: Dispatcher [employer] EDMS Josh Rucker RN RN Flo Motta MD MD [facility] Migdalia Jordan RN RN Corrections: (The following items were deleted from the chart) 18:25 18:06 05/12/2019 18:06 Discharged to Home. Impression: Chest pain, unspecified. hb Condition is Stable. Forms are Medication Reconciliation Form, Thank You Letter, Antibiotic Education, Prescription Opioid Use. Follow up: Private Physician; When: 2 - 3 days; Reason: If symptoms return, Further diagnostic work-up, Recheck today's complaints, Continuance of care, Re-evaluation by your physician. Problem is new. Symptoms have improved. kdr
--- NOTE | 2019-05-12 18:08 | ER ---
Nurse's Notes [facility] Name: Ngozi Bear Age: 39 yrs Sex: Female : 1980 Arrival Date: 05/12/2019 Time: :18 Bed 5 Private MD: Diagnosis: Chest pain, unspecified Presentation: 05/12 11:23 Presenting complaint: Patient states: Chest pain, began over night, worsening this sg morning, reports had nausea as well. Transition of care: patient was not received from another setting of care. Onset of symptoms was May 12, 2019. Risk Assessment: Do you want to hurt yourself or someone else? Patient reports no desire to harm self or others. Initial Sepsis Screen: Does the patient meet any 2 criteria? No. Patient's initial sepsis screen is negative. Does the patient have a suspected source of infection? No. Patient's initial sepsis screen is negative. Care prior to arrival: None. 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 - Social history:: Smoking status: Patient/guardian denies using tobacco. - Ebola Screening: : Patient negative for fever greater than or equal to 101.5 degrees Fahrenheit, and additional compatible Ebola Virus Disease symptoms Patient denies exposure to infectious person Patient denies travel to an Ebola-affected area in the 21 days before illness onset No symptoms or risks identified at this time. Screenin:27 Abuse screen: Denies threats or abuse. Denies injuries from another. Nutritional hb screening: No deficits noted. Tuberculosis screening: No symptoms or risk factors identified. Fall Risk None identified. Assessment: 11:25 General: Appears in no apparent distress. well groomed, well developed, well nourished, sg Behavior is calm, cooperative, appropriate for age. Pain: Complains of pain in chest Quality of pain is described as aching. Neuro: Level of Consciousness is awake, alert, obeys commands, Oriented to person, place, time, Speech is normal, Facial symmetry appears normal. Cardiovascular: Capillary refill is brisk in bilateral fingers Chest pain is described as vague, quality is pressure, sharp, is located in anterior chest wall. Respiratory: Airway is patent Respiratory effort is even, unlabored, Respiratory pattern is regular, symmetrical, Breath sounds are clear. GI: Abdomen is round non-distended, Reports nausea. : No signs and/or symptoms were reported regarding the genitourinary system. EENT: No signs and/or symptoms were reported regarding the EENT system. Derm: Skin is pink, warm \T\ dry. Musculoskeletal: Circulation, motion, and sensation intact. Range of motion: intact in all extremities. 12:22 Reassessment: Patient appears in no apparent distress at this time. sg 13:20 Reassessment: pt reports pain continues at this time. sg 13:35 Reassessment: notified pt reports having pain at this time, awaiting orders. sg Vital Signs: 11:26 BP 167 / 73; Pulse 93; Resp 16; Temp 98.1; Pulse Ox 100% ; Weight 90.72 kg; Height 4 hb ft. 11 in. (149.86 cm); Pain 7/10; 11:42 BP 142 / 93; Pulse 87; Resp 17; Pulse Ox 98% ; sv 12:15 BP 147 / 90; Pulse 89; Resp 23; Pulse Ox 97% ; sv 13:20 BP 146 / 86; Pulse 81; Resp 17; Pulse Ox 97% ; sv 13:52 BP 143 / 88; Pulse 83; Resp 19; Pulse Ox 97% ; sv 14:30 BP 138 / 88; Pulse 81; Resp 19; Pulse Ox 95% ; sv 15:15 BP 153 / 94; Pulse 86; Resp 17; Pulse Ox 95% ; sv 16:46 BP 149 / 92; Pulse 74; Resp 20; Pulse Ox 97% ; sv 17:30 BP 158 / 92; Pulse 77; Resp 19; Pulse Ox 98% ; sv 11:26 Body Mass Index 40.39 (90.72 kg, 149.86 cm) hb ED Course: 11:18 Patient arrived in ED. as 11:23 Arm band placed on. sg 11:24 Triage completed. sg 11:26 Flo Motta MD is Attending Physician. kdr 11:31 EKG done, by brewing technician. reviewed by Flo Motta MD. at1 11:40 Initial lab(s) drawn, by me, sent to lab. Inserted saline lock: 22 gauge in right sg antecubital area, using aseptic technique. Blood collected. 11:45 manager monitoring on. Pulse ox on. NIBP on. hb 12:12 XRAY Chest (1 view) In Process Unspecified. EDMS 12:21 Josh Rucker, RN is Primary Nurse. sg 14:11 Awaiting disposition, Awaiting re-evaluation by ER provider. sv 18:24 Patient has correct armband on for positive identification. hb 18:24 No provider procedures requiring assistance completed. intact, bleeding controlled, No hb redness/swelling at site. Pressure dressing applied. Administered Medications: 12:25 Drug: Zofran 4 mg Route: IVP; Site: right antecubital; sg 12:25 Drug: morphine 2 mg Route: IVP; Site: right antecubital; sg 13:16 Follow up: Response: No adverse reaction; Pain is unchanged, physician notified; RASS: sg Alert and Calm (0) 12:41 Not Given (Duplicate Order): morphine 2 mg IM once; RASS on ADMIN: Combtv4, Very sg Agttd3, Agttd2, Rstlss1, AlertClm0, Drwsy-1, Lt Sdtn-2, Mod Sdtn-3, Dp Sdtn-4, UnArsble-5 15:17 Drug: Philo (7.5 mg-325 mg) 1 tabs Route: PO; hb 15:17 Drug: TORadol - Ketorolac 15 mg Route: IVP; Site: right antecubital; hb 18:22 Drug: traMADol 50 mg Route: PO; hb 18:22 Follow up: Response: Medication administered at discharge. hb Outcome: 18:06 Discharge ordered by . kdr 18:24 Discharged to home ambulatory, with family. hb 18:24 Condition: stable 18:24 Discharge instructions given to patient, family, Instructed on discharge instructions, follow up and referral plans. medication usage, Demonstrated understanding of instructions, follow-up care, medications, Prescriptions given X 1. 18:25 Patient left the ED. hb Signatures: Dispatcher [employer] EDMS Aretha Rodriguez RN RN Josh Rucker RN RN sg Flo Motta MD MD kdr Martinez, Amelia as Gonzales, Amanda, emr trainer EKG Tat1 Jordan, Migdalia, RN RN hb
[2019-05-12] MEDS ORDERED: TRAMADOL HCL 50 MG TAB ONE (18:19)
[2019-05-12 21:18] VITALS: TEMP 98.1
[2019-05-12 21:30] VITALS: BP 158/92; O2SAT 98
--- NOTE | 2019-05-13 12:44 | EKG ---
Test Date: 2019-05-12 Test Time: 16:46:42 Quality Assurance Supervisor Final: AVANI MEASUREMENT RESULTS: Intervals: Rate: 76 GA: 158 QRSD: 84 QT: 410 QTc: 461 [place]: P: 48 GA: 158 QRS: 21 T: 6 INTERPRETIVE STATEMENTS: Normal sinus rhythm T wave abnormality, consider anterolateral ischemia Prolonged QT Abnormal ECG Compared to ECG 05/12/2019 11:26:15 Possible ischemia now present T-wave abnormality still present Electronically Signed On 05-13-19 12:42:25 STEM ROLLER OPERATOR by Julio C Cartwright
== END 2019-05-12 18:25 | disposition home or self-care (01) ==
LOC: ER 11:16
DX: R07.9 Chest pain, unspecified (principal)
CPT/HCPCS: 36415; 71045; 80048; 80076; 83735; 83880; 84484; 85025; 85610; 93005; 96374; 96375; 99285; J2270; J2405

== ENCOUNTER 2019-06-08 11:29 | Emergency (ER) | payer SELFPAY ==
--- OUTSIDE RECORDS SUMMARY | 2019-06-08 11:31 | XMS REPORT ---
:1980 [facility] Address [address] [place] [address] [address] [place] [address] Care Team Providers Name Role Phone Unavailable Unavailable Unavailable Problems This patient has no known problems. Allergies, Adverse Reactions, Alerts This patient has no known allergies or adverse reactions. Medications This patient has no known medications.
[2019-06-08] MEDS ORDERED: NA CHLORIDE 0.9% 1,000 ML ONE (12:19)
[2019-06-08 12:37] LABS: Absolute Lymphocytes (CBC) 1.5 K/uL (0.7-4.9); Basophils % 0.5 % (0-1.3); Hematocrit 34.7 % (36.0-45.0); Lymphocytes % 21.2 % (15.3-44.8); MPV 7.6 fL (7.6-11.3); RBC Red Blood Cell Count 3.99 M/uL (3.86-4.86)
[2019-06-08 12:41] LABS: Protime INR 1.04
[2019-06-08 12:51] LABS: Albumin 3.5 g/dL (3.4-5.0); Bilirubin Direct 0.2 mg/dL (0-0.2); Bilirubin Total 0.4 mg/dL (0.2-1.0); Magnesium 2.1 mg/dL (1.8-2.4); Potassium 3.9 mmol/L (3.5-5.1); Protein, Total 7.8 g/dL (6.4-8.2); Troponin (Emerg Dept Use Only) 0.02 ng/mL (0.0-0.045)
--- NOTE | 2019-06-08 12:52 | RAD REPORT ---
EXAM DESCRIPTION: RAD - Chest Single View - 06/08/2019 12:47 pm CLINICAL HISTORY: CHEST PAIN Chest pain. COMPARISON: Chest Single View dated 05/12/2019; Chest Single View dated 03/11/2019; Chest Single Vie w dated 12/28/2018; Chest Single View dated 08/29/2018 FINDINGS: Portable technique limits examination quality. The lungs are grossly clear. The heart is normal in size. No displaced fractures. IMPRESSION: No acute intrathoracic process suspected.
[2019-06-08] MEDS ORDERED: ONDANSETRON 4 MG/2 ML VIAL ONE (13:07)
[2019-06-08] MEDS ORDERED: DICYCLOMINE HCL 10 MG CAP ONE (13:07)
[2019-06-08] MEDS ORDERED: MAGNE/ALUM HYDROXD 30 ML UCUP ONE (13:07)
[2019-06-08] MEDS ORDERED: LIDOCAINE VISCOUS 2% SOLN 15 ML UDC ONE (13:07)
--- NOTE | 2019-06-08 13:40 | ER ---
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 Transition of care: patient was not received from another setting of care. Onset of symptoms was June 08, 2019. Risk Assessment: Do you want to hurt yourself or someone else? Patient reports no desire to harm self or others. Initial Sepsis Screen: Does the patient meet any 2 criteria? No. Patient's initial sepsis screen is negative. Does the patient have a suspected source of infection? No. Patient's initial sepsis screen is negative. Care prior to arrival: None. 11:46 Method Of Arrival: Ambulatory iw 11:46 Acuity: ALEXIA 3 iw Triage Assessment: 12:00 General: Appears in no apparent distress. comfortable, Behavior is cooperative, bp appropriate for age, anxious, PT NOW STATES PAIN IS EPIGASTRIC AND STARTED LAST PM AFTER 12TH BEER. Pain: Complains of pain in epigastric area. EENT: No deficits noted. Neuro: No deficits noted. Cardiovascular: Rhythm is sinus rhythm. Respiratory: No deficits noted. GI: Reports epigastric pain. : No signs and/or symptoms were reported regarding the genitourinary system. Derm: No deficits noted. Musculoskeletal: No deficits noted. 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 - Social history:: Smoking status: Patient uses tobacco products, denies chronic smoking, but will smoke occasionally. - Ebola Screening: : Patient negative for fever greater than or equal to 101.5 degrees Fahrenheit, and additional compatible Ebola Virus Disease symptoms Patient denies exposure to infectious person Patient denies travel to an Ebola-affected area in the 21 days before illness onset No symptoms or risks identified at this time. Screenin:00 Abuse screen: Denies threats or abuse. Denies injuries from another. Nutritional bp screening: No deficits noted. Tuberculosis screening: No symptoms or risk factors identified. Fall Risk None identified. Assessment: 12:00 General: SEE TRIAGE NOTE. Pain: Pain does not radiate. Pain began 1 day ago. bp 12:29 Reassessment: LABS DRAWN AND SENT. VS STABLE ON MONITOR, NO OBJECTIVE S/S OF DISTRESS bp AT THIS TIME. 13:52 Reassessment: PT D/C HOME AMBULATORY WITH S/O, DX WITH ALCOHOLIC GASTRITIS. bp Vital Signs: 11:49 BP 158 / 89; Pulse 95; Resp 16 S; Temp 97.9(TE); Pulse Ox 98% on R/A; Weight 90.72 kg; iw Height 4 ft. 11 in. (149.86 cm); Pain 6/10; 12:29 BP 159 / 91; Pulse 92; Resp 16; Pulse Ox 97% ; bp 13:31 BP 148 / 92; Pulse 87; Resp 16; Temp 97.9(O); Pulse Ox 98% on R/A; mh5 11:49 Body Mass Index 40.40 (90.72 kg, 149.86 cm) iw ED Course: 11:31 Patient arrived in ED. mr 11:48 Triage completed. iw 11:48 Arm band placed on. iw 11:52 Teo Mcmullen, NEVAEH is Primary Nurse. bp 11:58 Mohit Mora MD is Attending Physician. ps1 12:00 Patient has correct armband on for positive identification. Bed in low position. Call bp light in reach. Side rails up X2. pallet rectifier on. Pulse ox on. NIBP on. 12:15 Inserted saline lock: 20 gauge in right forearm, using aseptic technique. Blood bp collected. Patient maintains SpO2 saturation greater than 95% on room air. 12:49 XRAY Chest (1 view) In Process Unspecified. EDMS 13:52 No provider procedures requiring assistance completed. IV discontinued, intact, bp bleeding controlled, No redness/swelling at site. Pressure dressing applied. Administered Medications: 12:15 Drug: NS 0.9% 1000 ml Route: IV; Rate: 1 bolus; Site: right forearm; bp 13:53 Follow up: IV Status: Completed infusion; IV Intake: 1000ml bp 13:25 Drug: Bentyl 20 mg Route: PO; bp 13:53 Follow up: Response: Pain is decreased bp 13:25 Drug: Zofran 4 mg Route: IVP; Site: right forearm; bp 13:53 Follow up: Response: No adverse reaction; Pain is decreased bp 13:26 Drug: GI Cocktail without - (Maalox Suspension 30 ml, Lidocaine Liquid 2 % 15 bp ml) Route: PO; 13:54 Follow up: Response: No adverse reaction; Pain is decreased bp Intake: 13:53 IV: 1000ml; Total: 1000ml. bp Outcome: 13:39 Discharge ordered by . ps1 13:52 Discharged to home ambulatory, with family. bp 13:52 Condition: stable 13:52 Discharge instructions given to patient, Instructed on discharge instructions, follow up and referral plans. medication usage, Demonstrated understanding of instructions, follow-up care, medications, Prescriptions given X 2. 13:54 Patient left the ED. bp Signatures: Dispatcher [employer] ROSIE AriCoral Melanie Orellana, RN RN iw [facility] Teo Mcmullen RN RN bp Mohit Mora MD MD ps1 Corrections: (The following items were deleted from the chart) 11:53 11:49 Resp 16bpm; Spontaneous; Temp 97.9F Temporal; 90.72 kg; Height 4 ft. 11 in.; BMI: iw 40.3; Pain 6/10; iw
--- NOTE | 2019-06-08 13:41 | EDPHYS ---
Physician Documentation [facility] Name: Ngozi Bear Age: 39 yrs Sex: Female : 1980 Arrival Date: 06/08/2019 Time: 11:31 Bed 14 Private MD: ED Physician Mohit Mora HPI: 06/08 12:09 This 39 yrs old Female presents to ER via Ambulatory with complaints of Chest ps1 Pain. 12:09 patients pain actually begins in the pancreatic region and extends across the chest to ps1 the neck. She was out celebrating last night 2/2 her partners promotion. Engaged in binge drinking about 12-13 beers. States that she has lack of appetite. She has a history of hypertension and anxiety provoked chest pain. Previously and recently evaluated for the same. She had a "negative" heart cath in [place] a month ago without stenting. Pain is rated as mild to moderate. . 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 - Social history:: Smoking status: Patient uses tobacco products, denies chronic smoking, but will smoke occasionally. - Ebola Screening: : Patient negative for fever greater than or equal to 101.5 degrees Fahrenheit, and additional compatible Ebola Virus Disease symptoms Patient denies exposure to infectious person Patient denies travel to an Ebola-affected area in the 21 days before illness onset No symptoms or risks identified at this time. ROS: 12:09 Constitutional: Negative for fever, chills, and weight loss, Eyes: Negative for injury, ps1 pain, redness, and discharge, Respiratory: Negative for shortness of breath, cough, wheezing, and pleuritic chest pain, Back: Negative for injury and pain, MS/Extremity: Negative for injury and deformity, Skin: Negative for injury, rash, and discoloration, Neuro: Negative for headache, weakness, numbness, tingling, and seizure. 12:09 Cardiovascular: Positive for chest pain. 12:09 Abdomen/GI: Positive for abdominal pain, abdominal cramps. Exam: 12:09 Constitutional: This is a well developed, well nourished patient who is awake, alert, ps1 and in no acute distress. Head/Face: Normocephalic, atraumatic. Eyes: Pupils equal round and reactive to light, extra-ocular motions intact. Lids and lashes normal. Conjunctiva and sclera are non-icteric and not injected. Chest/axilla: Normal chest wall appearance and motion. Nontender with no deformity. No lesions are appreciated. Cardiovascular: Regular rate and rhythm. No gallops, murmurs, or rubs. Normal PMI, no JVD. No pulse deficits. Respiratory: Lungs have equal breath sounds bilaterally, clear to auscultation and percussion. No rales, rhonchi or wheezes noted. No increased work of breathing, no retractions or nasal flaring. Skin: Warm, dry with normal turgor. Normal color with no rashes, no lesions, and no evidence of cellulitis. MS/ Extremity: Pulses equal, no cyanosis. Neurovascular intact. Full, normal range of motion. Neuro: Awake and alert, GCS 15, oriented to person, place, time, and situation. Cranial nerves II-XII grossly intact. Sensory grossly intact. 12:09 Abdomen/GI: Inspection: abdomen appears normal, Bowel sounds: normal, Palpation: mild abdominal tenderness, in the epigastric area and left upper quadrant. Vital Signs: 11:49 BP 158 / 89; Pulse 95; Resp 16 S; Temp 97.9(TE); Pulse Ox 98% on R/A; Weight 90.72 kg; iw Height 4 ft. 11 in. (149.86 cm); Pain 6/10; 12:29 BP 159 / 91; Pulse 92; Resp 16; Pulse Ox 97% ; bp 13:31 BP 148 / 92; Pulse 87; Resp 16; Temp 97.9(O); Pulse Ox 98% on R/A; mh5 11:49 Body Mass Index 40.40 (90.72 kg, 149.86 cm) iw MDM: 12:15 Patient medically screened. ps1 13:40 Data reviewed: vital signs, nurses notes, lab test result(s), EKG, radiologic studies, ps1 and as a result, I will discharge patient. Counseling: I had a detailed discussion with the patient and/or guardian regarding: the historical points, exam findings, and any diagnostic results supporting the discharge/admit diagnosis, lab results, radiology results, the need for outpatient follow up, to return to the emergency department if symptoms worsen or persist or if there are any questions or concerns that arise at home. 06/08 12:00 Order name: CBC with Diff; Complete Time: 12:49 06/08 12:00 Order name: LFT's; Complete Time: 13:37 [facility] 06/08 12:00 Order name: Magnesium; Complete Time: 13:37 [facility] 06/08 13:38 Interpretation: Within normal limits: MG 2.1. 06/08 12:00 Order name: NT PRO-BNP; Complete Time: 13:37 [facility] 06/08 12:00 Order name: PT-INR; Complete Time: 12:50 06/08 12:00 Order name: Troponin (emerg Dept Use Only); Complete Time: 13:37 [facility] 06/08 13:38 Interpretation: Within normal limits: TROPED 0.02. 06/08 12:00 Order name: XRAY Chest (1 view); Complete Time: 13:37 06/08 12:00 Order name: EKG; Complete Time: 12: [facility] 06/08 12:00 Order name: CMP; Complete Time: 13:37 [facility] 06/08 13:38 Interpretation: Abnormal: ALT 147; AST 97. 06/08 12:09 Order name: Lipase; Complete Time: 12:49 06/08 12:00 Order name: Cardiac monitoring; Complete Time: 12:10 06/08 12:00 Order name: EKG - Nurse/Tech; Complete Time: 12:06/08 12:00 Order name: IV Saline Lock; Complete Time: 12:28 06/08 12:00 Order name: Labs collected and sent; Complete Time: 12:28 06/08 12:00 Order name: O2 Per Protocol; Complete Time: 12:06/08 12:00 Order name: O2 Sat Monitoring; Complete Time: 12:10 ps1 EC:40 Rate is 94 beats/min. Rhythm is regular. QRS [place] is Normal. [place] interval is normal. QRS ps1 interval is normal. QT interval is normal. No Q waves. T waves are Inverted in leads V2, V3. Clinical impression: NSR w/ Non-specific ST/T Changes. Interpreted by me. Administered Medications: 12:15 Drug: NS 0.9% 1000 ml Route: IV; Rate: 1 bolus; Site: right forearm; bp 13:53 Follow up: IV Status: Completed infusion; IV Intake: 1000ml bp 13:25 Drug: Bentyl 20 mg Route: PO; bp 13:53 Follow up: Response: Pain is decreased bp 13:25 Drug: Zofran 4 mg Route: IVP; Site: right forearm; bp 13:53 Follow up: Response: No adverse reaction; Pain is decreased bp 13:26 Drug: GI Cocktail without - (Maalox Suspension 30 ml, Lidocaine Liquid 2 % 15 bp ml) Route: PO; 13:54 Follow up: Response: No adverse reaction; Pain is decreased bp Disposition: 06/08/19 13:39 Discharged to Home. Impression: Alcoholic gastritis without bleeding. - Condition is Stable. - Discharge Instructions: Gastritis, Adult. - Prescriptions for Carafate 1 gram Oral Tablet - take 1 tablet by ORAL route 4 times per day take on an empty stomach, beginning on waking and last dose at bedtime; 100 tablet. Zofran 4 mg Oral Tablet - take 1 tablet by ORAL route every 12 hours As needed; 20 tablet. - Work release form, Medication Reconciliation Form, Thank You Letter, Antibiotic Education, Prescription Opioid Use form. - Follow up: Private Physician; When: As needed; Reason: Further diagnostic work-up, Recheck today's complaints, Continuance of care, Re-evaluation by your physician. Follow up: Emergency Department; When: As needed; Reason: Fever > 102 F, Trouble breathing, Worsening of condition. - Problem is new. - Symptoms have improved. Signatures: Dispatcher [employer] EDMN Melanie Orellana RN RN Teo Mcmullen RN RN Mohit Romero MD MD ps1 Corrections: (The following items were deleted from the chart) 13:54 13:39 06/08/2019 13:39 Discharged to Home. Impression: Alcoholic gastritis without bp bleeding. Condition is Stable. Forms are Medication Reconciliation Form, Thank You Letter, Antibiotic Education, Prescription Opioid Use. Follow up: Private Physician; When: As needed; Reason: Further diagnostic work-up, Recheck today's complaints, Continuance of care, Re-evaluation by your physician. Follow up: Emergency Department; When: As needed; Reason: Fever > 102 F, Trouble breathing, Worsening of condition. Problem is new. Symptoms have improved. ps1
[2019-06-08 14:01] VITALS: TEMP 97.9
[2019-06-08 14:05] VITALS: BP 148/92; O2SAT 98
--- NOTE | 2019-06-08 20:55 | EKG ---
Test Date: 2019-06-08 Test Time: 11:45:05 Oil Gauger: JASON MEASUREMENT RESULTS: Intervals: Rate: 94 MN: 130 QRSD: 82 QT: 358 QTc: 447 [place]: P: 75 MN: 130 QRS: 14 T: -13 INTERPRETIVE STATEMENTS: Normal sinus rhythm Possible Left atrial enlargement T wave abnormality, consider anterior ischemia Abnormal ECG Compared to ECG 05/12/2019 16:46:42 Prolonged QT interval no longer present T-wave abnormality still present Possible ischemia still present Electronically Signed On 06-08-19 20:53:31 SCREEN PRINTING MACHINE OPERATOR HELPER by Julio C Cartwright
== END 2019-06-08 13:54 | disposition home or self-care (01) ==
LOC: ER 11:29
DX: K29.20 Alcoholic gastritis without bleeding (principal); F41.9 Anxiety disorder, unspecified; Z72.0 Tobacco use
CPT/HCPCS: 36415; 71045; 80053; 80076; 83690; 83735; 83880; 84484; 85025; 85610; 93005; 96361; 96374; 99285; J2405; J7030

== ENCOUNTER 2019-08-17 21:30 | Emergency (ER) | payer SELFPAY ==
--- OUTSIDE RECORDS SUMMARY | 2019-08-17 21:32 | XMS REPORT | Summary of Care ---
:1980 Author Organization [facility] Address [address] [place] [id number] Care Team Providers Name Role Phone Aretha Mitchell Primary Care Provider Reason for Visit Reason Comments Follow-up left message Encounter Details Date Type Department Care Team Description 06/08/2019 Patient Outreach [facility] Bing Holden Follow-up ([facility]- [address] [place] [address] message ) [place], [place] [id number] Allergies No Known Allergiesdocumented as of this encounter (statuses as of 06/08/2019) Medications No known medicationsdocumented as of this encounter (statuses as of 06/08/2019) Active Problems Problem Noted Date Morbid obesity with body mass index of 40.0-49.9 04/24/2019 Anxiety 04/24/2019 Cigarette smoker 04/24/2019 Chest pain 04/23/2019 documented as of this encounter (statuses as of 06/08/2019) Immunizations Name Administration Dates Next Due Influenza Virus Vaccine Quad .5 mL IM 6+ MO 04/24/2019 documented as of this encounter Social History Tobacco Use Types Packs/Day Years Used Date Current Every Day Smoker Smokeless Tobacco: Never Used Comments: 1 cigarrettes a day Alcohol Use Drinks/Week oz/Week Comments Yes Alcohol Habits Answer Date Recorded How often do you have a drink containing alcohol? 2-4 times a month 2018 How many drinks containing alcohol do you have on a Not asked typical day when you are drinking? How often do you have six or more drinks on one Not asked occasion? Education Answer Date Recorded What is the highest level of school you have completed or 11th grade 2018 the highest degree you have received? Financial Resource Strain Answer Date Recorded How hard is it for you to pay for the very basics like Not hard at all 2018 food, housing, medical care, and heating? Food Insecurity Answer Date Recorded Within the past 12 months, you worried that your food Sometimes true 2018 would run out before you got money to buy more. Within the past 12 months, the food you bought just Sometimes true 04/26/2019 didn't last and you didn't have money to get more. Transportation Needs Answer Date Recorded In the past 12 months, has lack of transportation kept you from No 04/26/2019 medical appointments or from getting medications? In the past 12 months, has lack of transportation kept you from No 04/26/2019 meetings, work, or getting things needed for daily living? Sex Assigned at Date Recorded Not on file Job Start Date Occupation Industry Not on file Not on file Not on file Travel History Travel Start Travel End No recent travel history available. documented as of this encounter Last Filed Vital Signs Not on filedocumented in this encounter Progress Notes Bing Nj - 06/08/2019 9:08 AM CSTCCMine Nj called per referral from ANTONIO Carrillo but no answer, did leave a message to call me back. documented in this encounter Plan of Treatment Health Maintenance Due Date Last Done Comments PNEUMOCOCCAL 0-64 YEARS COMBINED SERIES (1 of - 1984 PPSV23) DTaP,Tdap,and Td Vaccines (1 - Tdap) 1989 PAP SMEAR 1999 Breast Cancer Screening (MAMMOGRAM) 2018 INFLUENZA VACCINE Completed 04/24/2019 documented as of this encounter Results Not on filedocumented in this encounter Insurance Payer Benefit Plan / Subscriber ID Effective Phone Address Type Group Dates MEDICAID MEDICAID PENDING 2019-[address] Pending PENDING PENDING [place]inash [id number] [id number] documented as of this encounter
--- OUTSIDE RECORDS SUMMARY | 2019-08-17 21:32 | XMS REPORT | Summary of Care ---
:[address] [facility] - [address] [address] Care Team Providers Name Role Phone Aretha Mitchell Primary Care Provider Reason for Visit Reason Comments Referral/consult chp referral Encounter Details Date Type Department Care Team Description 06/16/2019 Patient Outreach [facility] Coral Carrillo RN Referral/consult [address] (p referral) [place], [place] [id number] Allergies No Known Allergiesdocumented as of this encounter (statuses as of 06/16/2019) Medications No known medicationsdocumented as of this encounter (statuses as of 06/16/2019) Active Problems Problem Noted Date Morbid obesity with body mass index of 40.0-49.9 04/24/2019 Anxiety 04/24/2019 Cigarette smoker 04/24/2019 Chest pain 04/23/2019 documented as of this encounter (statuses as of 06/16/2019) Immunizations Name Administration Dates Next Due Influenza [...] on filedocumented in this encounter Progress Notes Coral Carrillo RN - 06/16/2019 3:18 PM CSTAttempted to call-2nd attempt; telephone number is incorrect; unable to contact Ama Bear. Referral closed. GABRIELA Abraham, RN, [facility] Outpatient Nut PickerQuality Assurance Supervisor [facility] O: [phone] M: [phone] documented in this encounter Plan of Treatment Health Maintenance Due Date Last Done Comments PNEUMOCOCCAL 0-64 YEARS COMBINED SERIES (1 of 1 - 1984 PPSV23) DTaP,Tdap,and Td Vaccines (1 - Tdap) 1989 PAP SMEAR 1999 Breast Cancer Screening (MAMMOGRAM) 2018 INFLUENZA VACCINE Completed 04/24/2019 documented as of this encounter Results Not on filedocumented in this encounter Insurance Payer Benefit Plan / Subscriber ID Effective Phone Address Type Group Dates MEDICAID MEDICAID PENDING 2019-[address] [place] [address] documented as of this encounter
--- OUTSIDE RECORDS SUMMARY | 2019-08-17 21:32 | XMS REPORT ---
:1980 [facility] Address [address] [place] [address] Care Team Providers Name Role Phone Unavailable Unavailable Unavailable Problems This patient has no known problems. Allergies, Adverse Reactions, Alerts This patient has no known allergies or adverse reactions. Medications This patient has no known medications.
[2019-08-17] MEDS ORDERED: NA CHLORIDE 0.9% 1,000 ML ONE (22:04)
[2019-08-17] MEDS ORDERED: ASPIRIN 81 MG CHEWABLE TABLET ONE (22:04)
[2019-08-17] MEDS ORDERED: NA CHLORIDE 0.9% 50 ML IV ONE (22:04)
[2019-08-17] MEDS ORDERED: THIAMINE 200 MG/2 ML INJ ONE (22:04)
[2019-08-17 22:15] LABS: Absolute Lymphocytes (CBC) 2.2 K/uL (0.7-4.9); Basophils % 0.7 % (0-1.3); Hematocrit 34.2 % (36.0-45.0); Lymphocytes % 23.6 % (15.3-44.8); MPV 8.3 fL (7.6-11.3); RBC Red Blood Cell Count 3.96 M/uL (3.86-4.86)
[2019-08-17 22:18] LABS: Protime INR 1.02
[2019-08-17 22:34] LABS: ALT/SGPT 110 U/L (12-78); AST/SGOT 84 U/L (15-37); Albumin 3.4 g/dL (3.4-5.0); Alkaline Phosphatase 105 U/L (45-117); BUN Blood Urea Nitrogen 7 mg/dL (7-18); Bicarbonate 21 mmol/L (21-32); Bilirubin Direct < 0.1 mg/dL (0-0.2); Bilirubin Total 0.2 mg/dL (0.2-1.0); Glucose Level 216 mg/dL (74-106); Lipase 208 U/L (73-393); Magnesium 2.3 mg/dL (1.8-2.4); NT PRO-BNP 12 pg/mL (<125); Potassium 3.4 mmol/L (3.5-5.1); Protein, Total 8.2 g/dL (6.4-8.2); Sodium Level 138 mmol/L (136-145); Troponin (Emerg Dept Use Only) < 0.02 ng/mL (0.0-0.045)
[2019-08-17 23:54] LABS: Barbiturates NEGATIVE (NEGATIVE); Benzodiazepines NEGATIVE (NEGATIVE); Cocaine NEGATIVE (NEGATIVE); METHAMPHETAM NEGATIVE (NEGATIVE); Methadone NEGATIVE (NEGATIVE); Opiates NEGATIVE (NEGATIVE); Phencyclidine NEGATIVE (NEGATIVE); THC Cannibis NEGATIVE (NEGATIVE)
[2019-08-18] MEDS ORDERED: CEFTRIAXONE/SWI 1gm 1 GM/10 ML SYR ONE (00:23)
[2019-08-18] MEDS ORDERED: ACETAMINOPHEN 500 MG TAB ONE (00:36)
--- NOTE | 2019-08-18 00:54 | EDPHYS ---
Physician Documentation [facility] Name: Ngozi Bear Age: 39 yrs Sex: Female : 1980 Arrival Date: 08/17/2019 Time: 21:32 Bed 7 Private MD: JEANIE Physician Estuardo Gao HPI: 08/16 21:48 This 39 yrs old Female presents to ER via Ambulatory with complaints of tiffany Shortness Of Breath. 21:48 This 39 yrs old Female presents to ER via Ambulatory with complaints of tiffany Shortness Of Breath. 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 - Social history:: Smoking status: Patient reports the use of cigarette tobacco products, smokes one-half pack cigarettes per day, Patient uses alcohol, occasionally. Patient/guardian denies using street drugs. ROS: 21:53 Constitutional: Negative for fever, chills, and weight loss, Eyes: Negative for injury, tiffany pain, redness, and discharge, ENT: Negative for injury, pain, and discharge, Neck: Negative for injury, pain, and swelling, Respiratory: Negative for shortness of breath, cough, wheezing, and pleuritic chest pain, Abdomen/GI: Negative for abdominal pain, nausea, vomiting, diarrhea, and constipation, Back: Negative for injury and pain, : Negative for injury, bleeding, discharge, and swelling, MS/Extremity: Negative for injury and deformity, Skin: Negative for injury, rash, and discoloration, Neuro: Negative for headache, weakness, numbness, tingling, and seizure, Psych: Negative for depression, anxiety, suicide ideation, homicidal ideation, and hallucinations, Allergy/Immunology: Negative for hives, rash, and allergies, Endocrine: Negative for neck swelling, polydipsia, polyuria, polyphagia, and marked weight changes, Hematologic/Lymphatic: Negative for swollen nodes, abnormal bleeding, and unusual bruising. 21:53 Cardiovascular: Positive for chest pain, of the chest. Exam: 21:53 Constitutional: This is a well developed, well nourished patient who is awake, alert, tiffany and in no acute distress. Head/Face: Normocephalic, atraumatic. Eyes: Pupils equal round and reactive to light, extra-ocular motions intact. Lids and lashes normal. Conjunctiva and sclera are non-icteric and not injected. Cornea within normal limits. Periorbital areas with no swelling, redness, or edema. ENT: Nares patent. No nasal discharge, no septal abnormalities noted. Tympanic membranes are normal and external auditory canals are clear. Oropharynx with no redness, swelling, or masses, exudates, or evidence of obstruction, uvula midline. Mucous membranes moist. Neck: Trachea midline, no thyromegaly or masses palpated, and no cervical lymphadenopathy. Supple, full range of motion without nuchal rigidity, or vertebral point tenderness. No Meningismus. Chest/axilla: Normal chest wall appearance and motion. Nontender with no deformity. No lesions are appreciated. Respiratory: Lungs have equal breath sounds bilaterally, clear to auscultation and percussion. No rales, rhonchi or wheezes noted. No increased work of breathing, no retractions or nasal flaring. Abdomen/GI: Soft, non-tender, with normal bowel sounds. No distension or tympany. No guarding or rebound. No evidence of tenderness throughout. Back: No spinal tenderness. No costovertebral tenderness. Full range of motion. Skin: Warm, dry with normal turgor. Normal color with no rashes, no lesions, and no evidence of cellulitis. MS/ Extremity: Pulses equal, no cyanosis. Neurovascular intact. Full, normal range of motion. Neuro: Awake and alert, GCS 15, oriented to person, place, time, and situation. Cranial nerves II-XII grossly intact. Motor strength 5/5 in all extremities. Sensory grossly intact. Cerebellar exam normal. Normal gait. Psych: Awake, alert, with orientation to person, place and time. Behavior, mood, and affect are within normal limits. 21:53 Cardiovascular: Rate: tachycardic, Rhythm: regular, Pulses: no pulse deficits are appreciated, Heart sounds: normal, Edema: is not appreciated, JVD: is not appreciated. 08/17 00:20 Musculoskeletal/extremity: ROM: intact in all extremities, full active range of motion, tiffany full passive range of motion, Circulation is intact in all extremities. Compartment Syndrome exam of affected extremity: is normal. DVT Exam: No signs of deep vein thrombosis. no pain, no swelling, no tenderness, negative Homans' sign noted on exam, no appreciated bluish discoloration, no erythema, no increased warmth. Vital Signs: 08/16 21:33 BP 158 / 91; Pulse 126; Resp 24; Temp 98.2(O); Pulse Ox 97% on R/A; Weight 90.72 kg fc (R); Height 4 ft. 11 in. (149.86 cm) (R); Pain 5/10; 23:14 BP 153 / 82; Pulse 115; Resp 98 S; Pulse Ox 98% on R/A; jd3 23:44 BP 152 / 82; Pulse 104; Resp 16 S; Pulse Ox 98% on R/A; jd3 08/17 01:22 BP 133 / 66; Pulse 102; Resp 17 S; Pulse Ox 97% on R/A; d3 08/16 21:33 Body Mass Index 40.40 (90.72 kg, 149.86 cm) fc MDM: 08/16 21:40 Patient medically screened. [facility] 21:58 Data reviewed: vital signs, nurses notes, lab test result(s), EKG, radiologic studies, [facility] plain films. 08/17 00:21 ED course: pt had cath 6 months ago in [place] , completely negative. [facility] 08/16 21:46 Order name: UDS; Complete Time: 00:06 [facility] 08/16 22:11 Order name: CBC with Automated Diff; Complete Time: 22:37 [facility] 08/16 22:11 Order name: Protime (+INR); Complete Time: 22:37 [facility] 08/16 21:46 Order name: XRAY Chest (1 view) [facility] 08/16 22:11 Order name: D-Dimer; Complete Time: 22:37 [facility] 08/16 22:11 Order name: Basic Metabolic Panel; Complete Time: 22:37 [facility] 08/16 22:11 Order name: Liver (Hepatic) Function; Complete Time: 22:37 [facility] 08/16 22:11 Order name: Troponin (Emerg Dept Use Only); Complete Time: 22:37 [facility] 08/16 22:11 Order name: NT PRO-BNP; Complete Time: 22:37 [facility] 08/16 22:11 Order name: Magnesium; Complete Time: 22:37 [facility] 08/16 22:11 Order name: Lipase; Complete Time: 22:37 [facility] 08/16 22:11 Order name: Thyroid Stimulating Hormone; Complete Time: 22:37 [facility] 08/16 22:11 Order name: Alcohol Serum/Plasma; Complete Time: 22:37 [facility] 08/16 22:38 Order name: CT Chest For PE Angio [facility] 08/17 00:12 Order name: Urine Culture [facility] 08/16 21:46 Order name: EKG; Complete Time: 23:07 [facility] 08/16 21:46 Order name: Cardiac monitoring; Complete Time: 21:48 [facility] 08/16 21:46 Order name: EKG - Nurse/Tech; Complete Time: 21:48 [facility] 08/16 21:46 Order name: IV Saline Lock; Complete Time: 21:59 [facility] 08/16 21:46 Order name: Labs collected and sent; Complete Time: 21:59 [facility] 08/16 21:46 Order name: O2 Per Protocol; Complete Time: 21:48 [facility] 08/16 21:46 Order name: O2 Sat Monitoring; Complete Time: 21:48 [facility] 08/17 00:09 Order name: Urine Dipstick-Ancillary (obtain specimen); Complete Time: 00:11 [facility] 08/17 00:09 Order name: Urine Test (obtain specimen); Complete Time: 00:11 [facility] 08/17 00:36 Order name: PO challenge: juice; Complete Time: 01:20 [facility] Administered Medications: 08/16 22:06 Drug: NS 0.9% 1000 ml Route: IV; Rate: 1 bolus; Site: right antecubital; jd3 23:05 Follow up: Response: No adverse reaction; IV Status: Completed infusion; IV Intake: jd3 1000ml 22:06 Drug: Thiamine 100 mg Route: IV; Rate: bolus; Site: right antecubital; jd3 23:05 Follow up: Response: No adverse reaction; IV Status: Completed infusion; IV Intake: [id number] 22:06 Drug: Aspirin 81 mg Route: PO; jd3 23:05 Follow up: Response: No adverse reaction [facility] 08/17 00:30 Drug: Rocephin 1 grams Route: IV; Rate: per protocol; Site: right antecubital; jd3 00:34 Drug: Tylenol 1000 mg Route: PO; jd3 01:21 Follow up: Response: No adverse reaction jd3 Disposition: 08/18/19 00:53 Discharged to Home. Impression: Dyspnea, Chest pain, unspecified, Tobacco use, Essential (primary) hypertension, Urinary tract infection, site not specified. - Condition is Stable. - Discharge Instructions: Nonspecific Chest Pain, Hypertension, Shortness of Breath, Urinary Tract Infection, Adult, Shortness of Breath, Lraa-am-Nocd, Urinary Tract Infection, Adult, Dsjm-uy-Apwr, Nonspecific Chest Pain, Zsox-wt-Cego, Hypertension, Vzom-ks-Tgqs, Aspirin and Your Heart, Managing Your Hypertension. - Prescriptions for Toprol XL 25 mg Oral Tablet - take 1 tablet by ORAL route once daily; 20 tablet. Cipro 250 mg Oral Tablet - take 1 tablet by ORAL route every 12 hours; 14 tablet. - Medication Reconciliation Form, Thank You Letter, Antibiotic Education, Prescription Opioid Use form. - Follow up: Private Physician; When: 2 - 3 days; Reason: Recheck today's complaints, Continuance of care, Re-evaluation by your physician. Follow up: Julio C Cartwright; When: 2 - 3 days; Reason: Recheck today's complaints, Re-evaluation by your physician. - Problem is new. - Symptoms have improved. Signatures: Dispatcher [employer] EDEstuardo Christopher MD MD cha Chretien, Felicia, RN RN Dale Johnston RN RN jd3 Corrections: (The following items were deleted from the chart) 08/16 23:41 23:07 BASIC METABOLIC PANEL+C.LAB.BRZ ordered. [facility] EDMS 23:41 23:07 CBC+H.LAB.BRZ ordered. EDMS EDMS 23:41 23:07 HEPATIC FUNCTION+C.LAB.BRZ ordered. EDMS EDMS : 23:07 MAGNESIUM+C.LAB.BRZ ordered. EDMS EDMS :41 23:07 PROBNP+C.LAB.BRZ ordered. EDMS EDMS :41 23:07 PROTIME (+INR)+COAG.LAB.BRZ ordered. EDMS EDMS : 23:07 TROPONIN (EMERG DEPT USE ONLY)+C.LAB.BRZ ordered. [facility] ED[facility] 23:41 23:07 URINE DRUG SCREEN+CHEM UR.LAB.BRZ ordered. [facility] 23:41 23:07 LIPASE+C.LAB.BRZ ordered. [facility] 23:41 23:07 D-DIMER+COAG.LAB.BRZ ordered. [facility] 23:41 23:07 THYROID STIMULAT HORMONE+C.LAB.BRZ ordered. [facility] 23:41 23:07 ETHANOL+C.LAB.BRZ ordered. [facility] 23:54 22:11 Urine Drug Screen ordered. [facility] 08/17 00:54 00:53 08/18/2019 00:53 Discharged to Home. Impression: Dyspnea; Chest pain, tiffany unspecified; Tobacco use; Essential (primary) hypertension. Condition is Stable. Discharge Instructions: Nonspecific Chest Pain, Hypertension, Shortness of Breath, Shortness of Breath, Tfkw-kt-Qdmt, Nonspecific Chest Pain, Qkck-ea-Sqkj, Hypertension, Busn-ff-Lkov, Aspirin and Your Heart, Managing Your Hypertension. Prescriptions for Toprol XL 25 mg Oral Tablet - take 1 tablet by ORAL route once daily; 20 tablet. and Forms are Medication Reconciliation Form, Thank You Letter, Antibiotic Education, Prescription Opioid Use. Follow up: Private Physician; When: 2 - 3 days; Reason: Recheck today's complaints, Continuance of care, Re-evaluation by your physician. Follow up: Julio C Cartwright; When: 2 - 3 days; Reason: Recheck today's complaints, Re-evaluation by your physician. Problem is new. Symptoms have improved. tiffany 01:21 00:54 08/18/2019 00:53 Discharged to Home. Impression: Dyspnea; Chest pain, jd3 unspecified; Tobacco use; Essential (primary) hypertension; Urinary tract infection, site not specified. Condition is Stable. Discharge Instructions: Nonspecific Chest Pain, Hypertension, Shortness of Breath, Shortness of Breath, Dwod-nn-Lzxh, Nonspecific Chest Pain, Upke-gn-Dbvj, Hypertension, Kpmx-tx-Ivqa, Aspirin and Your Heart, Managing Your Hypertension. Prescriptions for Toprol XL 25 mg Oral Tablet - take 1 tablet by ORAL route once daily; 20 tablet. and Forms are Medication Reconciliation Form, Thank You Letter, Antibiotic Education, Prescription Opioid Use. Follow up: Private Physician; When: 2 - 3 days; Reason: Recheck today's complaints, Continuance of care, Re-evaluation by your physician. Follow up: Julio C Cartwright; When: 2 - 3 days; Reason: Recheck today's complaints, Re-evaluation by your physician. Problem is new. Symptoms have improved. tiffany
--- NOTE | 2019-08-18 00:54 | ER ---
Nurse's Notes [facility] Name: Ngozi Bear Age: 39 yrs Sex: Female : 1980 Arrival Date: 08/17/2019 Time: 21:32 Bed 7 Private MD: Diagnosis: Dyspnea;Chest pain, unspecified;Tobacco use;Essential (primary) hypertension;Urinary tract infection, site not specified Presentation: 08/16 21:33 Chief complaint: Patient states: that she is having chest pressure, shortness of breath fc and her heart is racing. Started 30 minutes BOTTOM LINER while she was watching a movie. Denies any cough, congestion, fever, sore throat or fatigue. Coronavirus screen: Patient denies fever greater than 100.4F, cough, shortness of breath, or difficulty breathing. Proceed with normal triage process. Ebola Screen: Patient negative for fever greater than or equal to 101.5 degrees Fahrenheit, and additional compatible Ebola Virus Disease symptoms Patient denies exposure to infectious person. Patient denies travel to an Ebola-affected area in the 21 days before illness onset. Initial Sepsis Screen: Does the patient meet any 2 criteria? RR > 20 per min. HR > 90 bpm. Yes Does the patient have a suspected source of infection? No. Patient's initial sepsis screen is negative. Risk Assessment: Do you want to hurt yourself or someone else? Patient reports no desire to harm self or others. Onset of symptoms was August 17, 2019 at 21:00. Care prior to arrival: Medication(s) given: ASA, 325 mg, x 1. Transition of care: patient was not received from another setting of care. 21:33 Method Of Arrival: Ambulatory fc 21:33 Acuity: ALEXIA 3 Triage Assessment: 21:44 Respiratory: Reports shortness of breath at rest Onset: The symptoms/episode jd3 began/occurred just prior to arrival, the patient has mild shortness of breath. 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 - Social history:: Smoking status: Patient reports the use of cigarette tobacco products, smokes one-half pack cigarettes per day, Patient uses alcohol, occasionally. Patient/guardian denies using street drugs. Screenin:43 Abuse screen: Denies threats or abuse. Nutritional screening: No deficits noted. jd3 Tuberculosis screening: No symptoms or risk factors identified. Fall Risk Ambulatory Aid- None/Bed Rest/Nurse Assist (0 pts). Gait- Normal/Bed Rest/Wheelchair (0 pts) Mental Status- Oriented to own ability (0 pts). Total Kramer Fall Scale indicates No Risk (0-24 pts). Assessment: 21:45 General: Appears in no apparent distress. uncomfortable, Behavior is cooperative, jd3 appropriate for age, anxious. Pain: Complains of pain in chest Quality of pain is described as pressure. Neuro: Level of Consciousness is awake, alert, obeys commands, Oriented to person, place, time, situation. Cardiovascular: Heart tones S1 S2 present Capillary refill < 3 seconds Patient's skin is warm and dry. Rhythm is sinus tachycardia. Respiratory: Reports shortness of breath at rest Airway is patent Respiratory effort is even, unlabored, Respiratory pattern is regular, symmetrical, Breath sounds are clear bilaterally. Denies cough. GI: No signs and/or symptoms were reported involving the gastrointestinal system. : No signs and/or symptoms were reported regarding the genitourinary system. EENT: No signs and/or symptoms were reported regarding the EENT system. Derm: Skin is intact, Skin is dry, Skin is normal, Skin temperature is warm. Musculoskeletal: Circulation, motion, and sensation intact. Range of motion: intact in all extremities. 22:56 Reassessment: Patient appears in no apparent distress at this time. No changes from jd3 previously documented assessment. Patient and/or family updated on plan of care and expected duration. Pain level reassessed. Patient is alert, oriented x 3, equal unlabored respirations, skin warm/dry/pink. 23:44 Reassessment: Patient appears in no apparent distress at this time. Patient and/or jd3 family updated on plan of care and expected duration. Pain level reassessed. Patient is alert, oriented x 3, equal unlabored respirations, skin warm/dry/pink. Patient states feeling better. 08/17 01:21 Reassessment: Patient appears in no apparent distress at this time. Patient and/or jd3 family updated on plan of care and expected duration. Pain level reassessed. Patient is alert, oriented x 3, equal unlabored respirations, skin warm/dry/pink. Patient states feeling better. Vital Signs: 08/16 21:33 BP 158 / 91; Pulse 126; Resp 24; Temp 98.2(O); Pulse Ox 97% on R/A; Weight 90.72 kg fc (R); Height 4 ft. 11 in. (149.86 cm) (R); Pain 5/10; 23:14 BP 153 / 82; Pulse 115; Resp 98 S; Pulse Ox 98% on R/A; jd3 23:44 BP 152 / 82; Pulse 104; Resp 16 S; Pulse Ox 98% on R/A; jd3 08/17 01:22 BP 133 / 66; Pulse 102; Resp 17 S; Pulse Ox 97% on R/A; jd3 08/16 21:33 Body Mass Index 40.40 (90.72 kg, 149.86 cm) ED Course: 08/16 21:32 Patient arrived in ED. cl3 21:33 Arm band placed on Patient placed in an exam room, on a stretcher. fc 21:37 Triage completed. fc 21:38 Estuardo Gao MD is Attending Physician. tiffany 21:42 Dale Nguyen, NEVAEH is Primary Nurse. jd3 21:44 Patient has correct armband on for positive identification. Bed in low position. Call j light in reach. Side rails up X 1. gambling monitor on. Pulse ox on. NIBP on. 21:52 Inserted saline lock: 20 gauge in right antecubital area, using aseptic technique. ea Blood collected. 08/17 00:03 XRAY Chest (1 view) In Process Unspecified. EDMS 00:15 CT Chest For PE Angio In Process Unspecified. EDMS 00:53 Julio C Cartwright MD is Referral Physician. tiffany 01:22 No provider procedures requiring assistance completed. IV discontinued, intact, jd3 bleeding controlled, No redness/swelling at site. Pressure dressing applied. Administered Medications: 08/16 22:06 Drug: NS 0.9% 1000 ml Route: IV; Rate: 1 bolus; Site: right antecubital; jd3 23:05 Follow up: Response: No adverse reaction; IV Status: Completed infusion; IV Intake: jd3 1000ml 22:06 Drug: Thiamine 100 mg Route: IV; Rate: bolus; Site: right antecubital; jd3 23:05 Follow up: Response: No adverse reaction; IV Status: Completed infusion; IV Intake: 60mbyf3 22:06 Drug: Aspirin 81 mg Route: PO; jd3 23:05 Follow up: Response: No adverse reaction jd3 08/17 00:30 Drug: Rocephin 1 grams Route: IV; Rate: per protocol; Site: right antecubital; jd3 00:34 Drug: Tylenol 1000 mg Route: PO; jd3 01:21 Follow up: Response: No adverse reaction jd3 Intake: 08/16 23:05 IV: 1000ml; Total: 1000ml. jd3 23:05 IV: 50ml; Total: 1050ml. jd3 Outcome: 08/17 00:[address] . [facility] 01:20 Discharged to home ambulatory, with family. jd3 01:20 Condition: stable 01:20 Discharge instructions given to patient, Instructed on discharge instructions, follow up and referral plans. medication usage, Demonstrated understanding of instructions, follow-up care, medications, Prescriptions given X 2. 01:21 Patient left the ED. jd3 Addendum: 08/22/2019 08:44 Addendum: Culture Results: Positive urine culture. No further action required. Bacteria s s sensitive to prescribed antibiotic. Signatures: Dispatcher [employer] EDMS Estuardo Gao MD MD cha Chretien, Felicia, RN RN Zoe Johnson RN RN ss Antunez, Elena, RN RN ea Davies, Jonathon, RN RN jd3 Lewis, Charde cl3 Corrections: (The following items were deleted from the chart) 08/16 21:39 21:33 Pulse 120bpm; Resp 24bpm; Pulse Ox 97% RA; Temp 98.2F Oral; 90.72 kg Reported; fc Height 4 ft. 11 in. Reported; BMI: 40.3; Pain 5/10; fc 21:41 21:33 Chief complaint: Patient states: that she is having chest pressure, shortness of fc breath and her heart is racing. Started 30 minutes BOTTOM LINER while she was watching a movie. 08/17 01:23 01:23 Condition: stable j jd3 01:23 01:23 Discharged to home ambulatory, with family, jd3 jd3 01:23 Discharge instructions given to patient, Instructed on discharge instructions, jd3 follow up and referral plans. medication usage, Demonstrated understanding of instructions, follow-up care, medications, Prescriptions given X 2, jd3
[2019-08-18 01:31] VITALS: TEMP 98.2
[2019-08-18 01:35] VITALS: BP 133/66; O2SAT 97
--- NOTE | 2019-08-18 06:07 | RAD REPORT ---
EXAM DESCRIPTION: Chay Single View08/17/2019 11:59 pm CLINICAL HISTORY: Shortness of breath COMPARISON: May 2019 FINDINGS: The lungs appear clear of acute infiltrate. Although the heart size appears normal on thi s exam. The CT chest done on the same date demonstrates mild cardiomegaly
--- NOTE | 2019-08-18 10:57 | EKG ---
Test Date: 2019-08-17 Test Time: 21:48:29 [employer] Specialist: TARYN MEASUREMENT RESULTS: Intervals: Rate: 112 ND: 140 QRSD: 80 QT: 328 QTc: 447 Wisner: P: 51 ND: 140 QRS: 38 T: 5 INTERPRETIVE STATEMENTS: Sinus tachycardia Possible Left atrial enlargement ST & T wave abnormality, consider anterolateral ischemia Abnormal ECG Compared to ECG 06/08/2019 11:45:05 ST (T wave) deviation now present Sinus rhythm no longer present T-wave abnormality no longer present Possible ischemia still present Electronically Signed On 08-18-19 10:56:10 CDT by Julio C Cartwright
--- NOTE | 2019-08-18 12:44 | RAD REPORT ---
EXAM DESCRIPTION: CT - Chest For Pe Angio - 08/18/2019 12:11 am CLINICAL HISTORY: The patient is 39 years old and is Female; Chest pain;Dyspnea TECHNIQUE: Axial computed tomographic angiography images of the chest with intravenous contrast. S agittal and coronal reformatted images were created and reviewed. This CT exam was performed using one or more of the following dose reduction techniques: automated exposure control, adjustment of t he mA and/or kV according to patient size, and/or use of iterative reconstruction technique. MIP reconstructed images were created and reviewed. COMPARISON: CT of the chest September 09, 2017. FINDINGS: ARTIFACTS: The exam is suboptimal secondary to motion artifact. PULMONARY ARTERIES: There are no obvious filling defects identified within the pulmonary arterie s to suggest pulmonary embolism. AORTA: No acute findings. No thoracic aortic aneurysm. LUNGS: A 0.9 cm right lower lobe pulmonary nodule is present. This is unchanged from prior exam. The lungs are otherwise clear. PLEURAL SPACE: Unremarkable. No significant effusion. No pneumothorax. HEART: Unremarkable. No cardiomegaly. No significant pericardial effusion. No evidence of RV dysfunction. BONES/JOINTS: No acute fracture. No dislocation. SOFT TISSUES: Unremarkable. LYMPH NODES: Unremarkable. No enlarged lymph nodes. LIVER: There is a diffuse decrease in hepatic parenchymal density, consistent with fatty infiltr ation. IMPRESSION: No evidence of pulmonary embolism. Electronically signed by: Magy Ugarte MD 08/18/2019 12:17 AM CDT Due to temporary technical issues with the PACS/Fluency reporting system, reports are being signed by the in house radiologist as a courtesy to ensure prompt reporting. The interpreting radiologist is f ully responsible for the content of the report.
== END 2019-08-18 01:21 | disposition home or self-care (01) ==
LOC: ER 21:30
DX: R07.9 Chest pain, unspecified (principal); N39.0 Urinary tract infection, site not specified; I10 Essential (primary) hypertension; Z72.0 Tobacco use
CPT/HCPCS: 36415; 71045; 71275; 80048; 80076; 80307; 80320; 83690; 83735; 83880; 84443; 84484; 85025; 85379; 85610; 87077; 87086; 87088; 87186; 93005; 96365; 96375; 99284; J0696; J3411; J7030; Q9967

== ENCOUNTER 2019-12-22 21:36 | Emergency (ER) | payer SELFPAY ==
--- OUTSIDE RECORDS SUMMARY | 2019-12-22 21:39 | XMS REPORT | Continuity of Care Document ---
:1980 Author Organization [facility] t Address [address] [place] [address] Care Team Providers Name Role Phone Kelly Carrillo RN Attending Clinician Kelly Nj Attending Clinician Problems This patient has no known problems. Allergies, Adverse Reactions, Alerts This patient has no known allergies or adverse reactions. Medications This patient has no known medications. Procedures This patient has no known procedures. Encounters Start End Encounter Admission Attending Care Care Encounter Source Date/Time Date/Time Type Type Clinicians Facility Department ID 2019-06-16 2019-06-16 Patient Coral Carrillo [facility] [id number] 00:00:00 00:00:00 Outreach Kelly Harrington [id number] [place] [id number] 2019-06-08 2019-06-08 Patient Ondina Thiago [id number] 00:00:00 00:00:00 Outreach Bing Harrington [id number] [facility] [id number] Results This patient has no known results.
--- NOTE | 2019-12-22 23:18 | ER ---
Nurse's Notes [facility] Name: Ngozi Bear Age: 39 yrs Sex: Female : 1980 Arrival Date: 12/22/2019 Time: 21:38 Bed 27 Private MD: Diagnosis: Sprain of ankle Presentation: 12/21 21:43 Chief complaint: Patient states: Slipped and twisted R ankle on Friday. Reports pain ca1 and swelling at this time. Coronavirus screen: Patient denies a cough. Patient denies shortness of breath or difficulty breathing. Patient denies measured and/or subjective temperature greater than 100.4F prior to today's visit. Patient denies travel on a cruise ship or to a country the [facility] currently lists as an affected area. Patient denies contact with known and/or suspected case of COVID-19. Proceed with normal triage. Ebola Screen: Patient negative for fever greater than or equal to 101.5 degrees Fahrenheit, and additional compatible Ebola Virus Disease symptoms Patient denies exposure to infectious person. Patient denies travel to an Ebola-affected area in the 21 days before illness onset. No symptoms or risks identified at this time. Initial Sepsis Screen: Does the patient meet any 2 criteria? No. Patient's initial sepsis screen is negative. Does the patient have a suspected source of infection? No. Patient's initial sepsis screen is negative. Risk Assessment: Do you want to hurt yourself or someone else? Patient reports no desire to harm self or others. Onset of symptoms was December 22, 2019. 21:43 Method Of Arrival: Ambulatory ca1 21:43 Acuity: ALEXIA 4 ca1 Triage Assessment: 22:01 General: Appears in no apparent distress. Behavior is calm, cooperative. Pain: ks7 Complains of pain in right foot Pain currently is 8 out of 10 on a pain scale. Quality of pain is described as sharp, Pain began 2-3 days ago. Is continuous, episodic, Alleviated by rest, Aggravated by increased activity, weight bearing. Musculoskeletal: Range of motion: limited in right ankle Swelling present in right ankle, lower leg Tenderness present in right leg Reports pain in right leg since a few days ago.. Injury Description: pt tripped while getting out of her truck a few days ago. increased pain, swelling and bruising today. pt has not been able to stay off feet d/t work. 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 - Social history:: Smoking status: Patient denies any tobacco usage or history of. - Family history:: not pertinent. - Hospitalizations: : No recent hospitalization is reported. Screenin:04 Abuse screen: Denies threats or abuse. Denies injuries from another. Nutritional ks7 screening: No deficits noted. Tuberculosis screening: No symptoms or risk factors identified. Fall Risk No fall in past 12 months (0 pts). No secondary diagnosis (0 pts). No IV (0 pts). Ambulatory Aid- None/Bed Rest/Nurse Assist (0 pts). Gait- Weak (10 pts.). Mental Status- Oriented to own ability (0 pts). Total Kramer Fall Scale indicates No Risk (0-24 pts). Assessment: 22:04 Pain: Complains of pain in right leg Pain currently is 8 out of 10 on a pain scale. ks7 Quality of pain is described as sharp, Alleviated by rest, Aggravated by increased activity, weight bearing. Musculoskeletal: Swelling present in right leg. 22:48 Reassessment: Patient is alert, oriented x 3, equal unlabored respirations, skin ks7 warm/dry/pink. Vital Signs: 21:43 BP 127 / 81; Pulse 95; Resp 15 S; Pulse Ox 97.3% on R/A; Weight 90.72 kg (R); Height 4 ca1 ft. 11 in. (149.86 cm) (R); 22:43 BP 127 / 83; Pulse 89; Resp 18; Temp 98.9(TE); Pulse Ox 96% on R/A; Pain 6/10; ks7 23:35 BP 111 / 66; Pulse 88; Resp 18; Temp 98.2(TE); Pulse Ox 96% on R/A; Pain 4/10; ks7 21:43 Body Mass Index 40.40 (90.72 kg, 149.86 cm) ca1 ED Course: 21:38 Patient arrived in ED. bp1 21:44 Triage completed. ca1 21:45 Arm band placed on right wrist. ca1 21:46 Zohreh Farias, NEVAEH is Primary Nurse. ks7 21:47 Robin Cota MD is Attending Physician. rn 22:04 Patient has correct armband on for positive identification. Bed in low position. Call ks7 light in reach. Side rails up X2. 22:04 No provider procedures requiring assistance completed. Patient did not have IV access ks7 during this emergency room visit. 22:18 XRAY Tib Fib RIGHT In Process Unspecified. EDMS 22:43 pt ambulated to bathroom independently. pain with ambulation. ks7 22:48 No apparent distress. ks7 23:17 Josh Galarza MD is Referral Physician. rn 23:[address] pt. pt able to ambulate, states it feels better with the boot on. ks7 pt ambulated out of the ED. Administered Medications: No medications were administered Outcome: 23:17 Discharge ordered by . rn 23:51 Discharged to home ambulatory. ks7 23:51 Condition: good 23:51 Discharge instructions given to patient, Instructed on discharge instructions, rest, elevation, ice, pain meds Demonstrated understanding of instructions. 23:54 Patient left the ED. ks7 Signatures: Dispatcher [employer] EDMS Robin Cota MD MD rn Acob, Olga RN RN ca1 Jackie Cabrera [facility] Zohreh Farias, RN RN ks7 Corrections: (The following items were deleted from the chart) 21:46 21:43 BP 135 / 97; Pulse 95bpm; Resp 15bpm; Spontaneous; Pulse Ox 97.3% RA; 90.72 kg ca1 Reported; Height 4 ft. 11 in. Reported; BMI: 40.3; ca1 23:54 23:[address] pt. pt able to ambulate, states it feels better with the ks7 boot on. pt ambulated out of the ED. ks7
--- NOTE | 2019-12-22 23:18 | EDPHYS ---
Physician Documentation [facility] Name: Ngozi Bear Age: 39 yrs Sex: Female : 1980 Arrival Date: 12/22/2019 Time: 21:38 Bed 27 Private MD: ED Physician Robin Cota HPI: 12/21 22:54 This 39 yrs old Female presents to ER via Ambulatory with complaints of Ankle rn Injury, Ankle Swelling. 22:54 The patient presents with an injury, pain. The complaints affect the right ankle. rn Onset: The symptoms/episode began/occurred 5 day(s) ago. Associated signs and symptoms: Pertinent positives: swelling, Pertinent negatives: fever, weakness. Severity of symptoms: At their worst the symptoms were moderate, in the emergency department the symptoms are unchanged. The patient has not experienced similar symptoms in the past. The patient has not recently seen a physician. Reports ankle injury and swelling/bruising, trying to get into truck, slipped, injury 5 days ago, not improving. Did not hurt initially, began to hurt next day. Reports pain to outer right ankle. . 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 - Social history:: Smoking status: Patient denies any tobacco usage or history of. - Family history:: not pertinent. - Hospitalizations: : No recent hospitalization is reported. ROS: 22:54 Constitutional: Negative for fever, chills, and weight loss, MS/Extremity: + right rn ankle injury and pain Skin: + bruising to right lower leg Exam: 22:54 Constitutional: This is a well developed, well nourished patient who is awake, alert, rn and in no acute distress. MS/ Extremity: Pulses equal, no cyanosis. Neurovascular intact. + bruising to right distal leg, with focal tenderness distal fibula. No tibial tenderness, no pain with ROM right knee. NO foot tenderness or abnormality. Vital Signs: 21:43 BP 127 / 81; Pulse 95; Resp 15 S; Pulse Ox 97.3% on R/A; Weight 90.72 kg (R); Height 4 ca1 ft. 11 in. (149.86 cm) (R); 22:43 BP 127 / 83; Pulse 89; Resp 18; Temp 98.9(TE); Pulse Ox 96% on R/A; Pain 6/10; ks7 23:35 BP 111 / 66; Pulse 88; Resp 18; Temp 98.2(TE); Pulse Ox 96% on R/A; Pain 4/10; ks7 21:43 Body Mass Index 40.40 (90.72 kg, 149.86 cm) ca1 MDM: 21:47 Patient medically screened. rn 22:54 Differential diagnosis: fracture, sprain. rn 23:15 Data reviewed: vital signs, nurses notes, radiologic studies, plain films, and as a rn result, I will discharge patient. Counseling: I had a detailed discussion with the patient and/or guardian regarding: the historical points, exam findings, and any diagnostic results supporting the discharge/admit diagnosis, radiology results, the need for outpatient follow up, to return to the emergency department if symptoms worsen or persist or if there are any questions or concerns that arise at home. Special discussion: I discussed with the patient/guardian in detail that at this point there is no indication for admission to the hospital. It is understood, however, that if the symptoms persist or worsen the patient needs to return immediately for re-evaluation. Further emergent ED testing is not indicated at this point in time. I discussed with the patient/guardian in detail the need to arrange with the PCP or specialist further outpatient testing, MRI, Based on the history and exam findings, there is no indication for further emergent testing or inpatient evaluation. I discussed with the patient/guardian the need to see the orthopedic surgeon for further evaluation of the symptoms. ED course: Xray tib fib no acute findings. Will place in boot and recommend f/u with ortho and possible MRI, could be high level sprain.. 12/21 21:55 Order name: XRAY Tib Fib RIGHT rn 12/21 23:18 Order name: Misc. Order: splint with walking boot; Complete Time: 23:50 rn Administered Medications: No medications were administered Disposition: 12/22/19 23:17 Discharged to Home. Impression: Sprain of ankle. - Condition is Stable. - Discharge Instructions: Ankle Sprain. - Medication Reconciliation Form, Thank You Letter, Antibiotic Education, Prescription Opioid Use form. - Follow up: Josh Galarza MD; When: As needed; Reason: Recheck today's complaints, Re-evaluation by your physician. - Problem is new. - Symptoms have improved. Signatures: Dispatcher [employer] [facility] Robin oCta MD MD rn Acob, Olga RN RN ca1 Zohreh Farias RN RN ks7 Corrections: (The following items were deleted from the chart) 22:18 21:55 Ankle Right 3 View+RAD.RAD.BRZ ordered. [facility] EDCO 23:54 23:17 12/22/2019 23:17 Discharged to Home. Impression: Sprain of ankle. Condition is ks7 Stable. Forms are Medication Reconciliation Form, Thank You Letter, Antibiotic Education, Prescription Opioid Use. Follow up: Josh Galarza; When: As needed; Reason: Recheck today's complaints, Re-evaluation by your physician. Problem is new. Symptoms have improved. rn
[2019-12-23 00:15] VITALS: O2SAT 96
[2019-12-23 00:17] VITALS: BP 111/66; TEMP 98.2
--- NOTE | 2019-12-23 16:45 | RAD REPORT ---
EXAM DESCRIPTION: RAD - Tib Fib Right - 12/22/2019 10:18 pm CLINICAL HISTORY: 39 years Female, PAIN COMPARISON: None. FINDINGS: There is no fracture or dislocation. No bony or articular abnormalities are demonstrated. The soft tissues are unremarkable. IMPRESSION: 1. Normal study. Electronically signed by: Tani Maldonado MD 12/22/2019 11:03 PM CDT Due to temporary technical issues with the PACS/Fluency reporting system, reports are being signed by the in house radiologistwithout review asa courtesy toensure prompt reporting. The interpreting radi ologist is fully responsible for the content of the report.
== END 2019-12-22 23:54 | disposition home or self-care (01) ==
LOC: ER 21:36
DX: S93.401A Sprain of unspecified ligament of right ankle, initial encounter (principal); X58.XXXA Exposure to other specified factors, initial encounter; Y93.89 Activity, other specified; Y92.9 Unspecified place or not applicable; I10 Essential (primary) hypertension

== ENCOUNTER 2020-02-27 21:30 | Emergency (ER) | payer OTHER, SELFPAY ==
[2020-02-27] MEDS ORDERED: DIPHENHYDRAMINE 25 MG TAB/CAP ONE (23:31)
[2020-02-27] MEDS ORDERED: METHYLPREDNISOLONE 125 MG INJ ONE (23:31)
[2020-02-27] MEDS ORDERED: FAMOTIDINE 20 MG TAB ONE (23:32)
--- NOTE | 2020-02-28 00:01 | ER ---
Nurse's Notes [facility] Name: Ngozi Bear Age: 39 yrs Sex: Female : 1980 Arrival Date: 02/27/2020 Time: 21:34 Bed 14 Private MD: Diagnosis: Localized swelling, mass and lump, unspecified-upper lip, allergic reaction to food Presentation: 02/26 21:47 Chief complaint: Patient states: "[place] we just noticed jd3 today, but she has this blister on the inside of her upper lip and now she is saying she is having problems tasting things.". Coronavirus screen: At this time, the client does not indicate any symptoms associated with coronavirus-19. Ebola Screen: Patient negative for fever greater than or equal to 101.5 degrees Fahrenheit, and additional compatible Ebola Virus Disease symptoms. Initial Sepsis Screen: Does the patient meet any 2 criteria? No. Patient's initial sepsis screen is negative. Does the patient have a suspected source of infection? No. Patient's initial sepsis screen is negative. Risk Assessment: Do you want to hurt yourself or someone else? Patient reports no desire to harm self or others. Onset of symptoms was February 27, 2020. 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 - Social history:: Smoking status: Patient denies any tobacco usage or history of. Screenin:58 Abuse screen: Denies threats or abuse. Nutritional screening: No deficits noted. jd3 Tuberculosis screening: No symptoms or risk factors identified. Fall Risk Ambulatory Aid- None/Bed Rest/Nurse Assist (0 pts). Gait- Normal/Bed Rest/Wheelchair (0 pts) Mental Status- Oriented to own ability (0 pts). Total Kramer Fall Scale indicates No Risk (0-24 pts). Assessment: 22:55 General: Appears in no apparent distress. uncomfortable, Behavior is calm, cooperative, jd3 appropriate for age. Pain: Complains of pain in upper lip Quality of pain is described as aching. Neuro: Level of Consciousness is awake, alert, obeys commands, Oriented to person, place, time, situation. Cardiovascular: Denies chest pain, Capillary refill < 3 seconds Patient's skin is warm and dry. Respiratory: Airway is patent Respiratory effort is even, unlabored, Respiratory pattern is regular, symmetrical, Denies cough, shortness of breath. GI: No signs and/or symptoms were reported involving the gastrointestinal system. : No signs and/or symptoms were reported regarding the genitourinary system. EENT: 2 blisters noted to pt's upper lip.. Derm: Skin is intact, Skin is dry, Skin is normal, Skin temperature is warm. Musculoskeletal: Circulation, motion, and sensation intact. Range of motion: intact in all extremities. 23:46 Reassessment: Patient appears in no apparent distress at this time. Patient and/or jd3 family updated on plan of care and expected duration. Pain level reassessed. Patient is alert, oriented x 3, equal unlabored respirations, skin warm/dry/pink. Patient states feeling better. 02/27 00:08 Reassessment: Patient and/or family updated on plan of care and expected duration. Pain ea level reassessed. Patient is alert, oriented x 3, equal unlabored respirations, skin warm/dry/pink. Discharge instruction given to patient, verbalized the understanding of instruction. Pt left ED ambulatory tolerating well. Vital Signs: 02/26 21:49 BP 133 / 94; Pulse 106; Resp 18 S; Temp 97.8(O); Pulse Ox 98% on R/A; Weight 72.57 kg jd3 (R); Height 4 ft. 11 in. (149.86 cm) (R); Pain 0/10; 23:50 BP 122 / 80; Pulse 90; Resp 18; Pulse Ox 98% on R/A; ea 21:49 Body Mass Index 32.32 (72.57 kg, 149.86 cm) jd3 ED Course: 21:34 Patient arrived in ED. bp1 21:48 Triage completed. jd3 21:52 Arm band placed on. jd3 22:53 Dale Nguyen RN is Primary Nurse. jd3 22:54 Rizwan Houston NP is PHCP. pm1 22:54 Avelino Hills MD is Attending Physician. pm1 22:58 Patient has correct armband on for positive identification. Bed in low position. Call jd3 light in reach. Side rails up X 1. Adult w/ patient. Pulse ox on. NIBP on. 23:59 Primary Nurse role handed off by Dale Nguyen RN 23:59 Josh Rucker RN is Primary Nurse. 02/27 00:09 No provider procedures requiring assistance completed. Patient did not have IV access ea during this emergency room visit. Administered Medications: 02/26 23:24 Drug: SOLU-Medrol 125 mg Route: IM; Site: right gluteus; ea 02/27 00:10 Follow up: Response: No adverse reaction ea 02/26 23:24 Drug: Benadryl 25 mg Route: PO; ea 02/27 00:10 Follow up: Response: No adverse reaction ea 02/26 23:24 Drug: Pepcid 20 mg Route: PO; ea 02/27 00:10 Follow up: Response: No adverse reaction ea Outcome: 00:00 Discharge ordered by . pm1 00:09 Discharged to home ambulatory, with significant other. ea 00:09 Condition: stable 00:09 Discharge instructions given to patient, Instructed on discharge instructions, follow up and referral plans. medication usage, Demonstrated understanding of instructions, follow-up care, medications, Prescriptions given X 3. 00:10 Patient left the ED. ea Signatures: Josh Rucker RN RN Rizwan Houston NP COLOR STRAINING BAG WASHER pm1 Dawna Mullins RN RN Dale Nguyen RN RN jd3 [place], Brittany [facility] Corrections: (The following items were deleted from the chart) 02/26 23:46 23:46 Reassessment: Patient appears in no apparent distress at this time. Patient jd3 and/or family updated on plan of care and expected duration. Pain level reassessed. Patient is alert, oriented x 3, equal unlabored respirations, skin warm/dry/pink. jd3
--- NOTE | 2020-02-28 00:01 | EDPHYS ---
Physician Documentation [facility] Name: Ngozi Bear Age: 39 yrs Sex: Female : 1980 Arrival Date: 02/27/2020 Time: 21:34 Bed 14 Private MD: ED Physician Avelino Hills HPI: 02/26 23:56 This 39 yrs old Female presents to ER via Ambulatory with complaints of Lips pm1 Swelling. 23:56 The patient presents with swelling. The problem is located in the upper lip. Onset: The pm1 symptoms/episode began/occurred 1 hour(s) ago. Duration: The symptoms are continuous. Modifying factors: The symptoms are alleviated by nothing, the symptoms are aggravated by talking, rubbing against teeth. Associated signs and symptoms: Pertinent negatives: fever, nausea, vomiting. Severity of symptoms: in the emergency department the symptoms are actually worse. The patient has not experienced similar symptoms in the past. Patient ate peanut butter sandwich prior to onset of swelling to inside of upper lip. 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 - Social history:: Smoking status: Patient denies any tobacco usage or history of. ROS: 23:56 Constitutional: Negative for fever, chills, and weight loss, Eyes: Negative for injury, pm1 pain, redness, and discharge. 23:56 Neck: Negative for injury, pain, and swelling, Cardiovascular: Negative for chest pain, palpitations, and edema, Respiratory: Negative for shortness of breath, cough, wheezing, and pleuritic chest pain, Abdomen/GI: Negative for abdominal pain, nausea, vomiting, diarrhea, and constipation, Back: Negative for injury and pain, MS/Extremity: Negative for injury and deformity, Skin: Negative for injury, rash, and discoloration, Neuro: Negative for headache, weakness, numbness, tingling, and seizure. 23:56 ENT: Positive for swelling to inside of upper lip. Exam: 23:56 Constitutional: This is a well developed, well nourished patient who is awake, alert, pm1 and in no acute distress. Head/Face: Normocephalic, atraumatic. 23:56 Back: No spinal tenderness. No costovertebral tenderness. Full range of motion. Skin: Warm, dry with normal turgor. Normal color with no rashes, no lesions, and no evidence of cellulitis. MS/ Extremity: Pulses equal, no cyanosis. Neurovascular intact. Full, normal range of motion. 23:56 ENT: Mouth: Lips: two small areas of swelling present to inside upper lip. Appear that they have been bitten or irritated and have some fresh blood present inside, Posterior pharynx: Airway: no evidence of obstruction, patent. 23:56 Cardiovascular: Exam negative for acute changes, Rate: normal, Rhythm: regular, Pulses: no pulse deficits are appreciated. 23:56 Respiratory: Exam negative for acute changes, respiratory distress, shortness of breath. Vital Signs: 21:49 BP 133 / 94; Pulse 106; Resp 18 S; Temp 97.8(O); Pulse Ox 98% on R/A; Weight 72.57 kg jd3 (R); Height 4 ft. 11 in. (149.86 cm) (R); Pain 0/10; 23:50 BP 122 / 80; Pulse 90; Resp 18; Pulse Ox 98% on R/A; ea 21:49 Body Mass Index 32.32 (72.57 kg, 149.86 cm) jd3 MDM: 23:05 Patient medically screened. pm1 23:54 Data reviewed: vital signs. Data interpreted: Pulse oximetry: on room air is 98 %. pm1 Interpretation: normal. Counseling: I had a detailed discussion with the patient and/or guardian regarding: the historical points, exam findings, and any diagnostic results supporting the discharge/admit diagnosis, the need for outpatient follow up, for definitive care, an allergy/database marketing specialist, to return to the emergency department if symptoms worsen or persist or if there are any questions or concerns that arise at home. Administered Medications: 23:24 Drug: SOLU-Medrol 125 mg Route: IM; Site: right gluteus; ea 02/27 00:10 Follow up: Response: No adverse reaction ea 02/26 23:24 Drug: Benadryl 25 mg Route: PO; ea 02/27 00:10 Follow up: Response: No adverse reaction ea 02/26 23:24 Drug: Pepcid 20 mg Route: PO; ea 02/27 00:10 Follow up: Response: No adverse reaction yanely Disposition: 05:35 Co-signature as Attending Physician, Avelino Hills MD. [email or web address] Disposition: 02/28/20 00:00 Discharged to Home. Impression: Localized swelling, mass and lump, unspecified - upper lip, allergic reaction to food. - Condition is Stable. - Discharge Instructions: Food Allergy. - Prescriptions for Benadryl 25 mg Oral Capsule - take 1 capsule by ORAL route every 6 hours As needed; 30 tablet. Pepcid 20 mg Oral Tablet - take 1 tablet by ORAL route every 12 hours for 10 days; 20 tablet. Medrol (Evan) 4 mg Oral Tablets, Dose Pack - take 1 tablet by ORAL route as directed - follow package instructions; 1 packet. - Work release form, Medication Reconciliation Form, Thank You Letter, Antibiotic Education, Prescription Opioid Use form. - Follow up: Emergency Department; When: As needed; Reason: Worsening of condition. Follow up: Private Physician; When: 2 - 3 days; Reason: Recheck today's complaints, Continuance of care, Re-evaluation by your physician. - Problem is new. - Symptoms have improved. Signatures: Rizwan Houston NP OIL REFINER pm1 Dawna Mullins RN RN ea Davies, Jonathon, RN RN jAvelino Davis MD MD [email or web address] Corrections: (The following items were deleted from the chart) 00:10 00:00 02/28/2020 00:00 Discharged to Home. Impression: Localized swelling, mass and ea lump, unspecified - upper lip, allergic reaction to food. Condition is Stable. Forms are Medication Reconciliation Form, Thank You Letter, Antibiotic Education, Prescription Opioid Use. Follow up: Emergency Department; When: As needed; Reason: Worsening of condition. Follow up: Private Physician; When: 2 - 3 days; Reason: Recheck today's complaints, Continuance of care, Re-evaluation by your physician. Problem is new. Symptoms have improved. pm1
[2020-02-28 00:35] VITALS: TEMP 97.8; O2SAT 98
[2020-02-28 00:36] VITALS: BP 122/80
--- OUTSIDE RECORDS SUMMARY | 2020-03-02 02:04 | XMS REPORT | Continuity of Care Document ---
:1980 Author Organization [facility] t Address [address] [place] [address] Care Team Providers Name Role Phone Kelly [...] 2019-06-16 Patient Coral Carrillo Thiago [id number] 00:00:00 00:00:00 Outreach Kelly Harrington [id number] [place] [phone] [id number] 2019-06-08 2019-06-08 Patient Ondina Thiago [id number] 00:00:00 00:00:00 Outreach Bing Harrington [id number] [place] [phone] [id number] Results This patient has no known results.
== END 2020-02-28 00:10 | disposition home or self-care (01) ==
LOC: ER 21:30
DX: R22.9 Localized swelling, mass and lump, unspecified (principal); Z91.018 Allergy to other foods; I10 Essential (primary) hypertension
CPT/HCPCS: 96372; 99283; J2930

== ENCOUNTER 2020-03-13 14:03 | Emergency (ER) | payer OTHER ==
--- OUTSIDE RECORDS SUMMARY | 2020-03-13 14:04 | XMS REPORT | Continuity of Care Document ---
:1980 Author Organization [facility] t Address [address] [place] [address] Care Team Providers Name Role Phone Kelly [...] 2019-06-16 Patient Coral Carrillo Thiago [id number] 00:00:00 00:00:00 Outreach Kelly Harrington [id number] [place] [id number] 2019-06-08 2019-06-08 Patient Thiago [place] [id number] 00:00:00 00:00:00 Outreach Bing Harrington [id number] [place] [phone] [id number] Results This patient has no known results.
[2020-03-13 15:29] LABS: Absolute Lymphocytes (CBC) 1.3 K/uL (0.7-4.9); Basophils % 0.5 % (0-1.3); Hematocrit 33.7 % (36.0-45.0); Lymphocytes % 18.1 % (15.3-44.8); MPV 7.7 fL (7.6-11.3); RBC Red Blood Cell Count 3.78 M/uL (3.86-4.86)
[2020-03-13 15:30] LABS: Protime INR 1.1
[2020-03-13 15:44] LABS: ALT/SGPT 68 U/L (12-78); AST/SGOT 55 U/L (15-37); Albumin 3.7 g/dL (3.4-5.0); Alkaline Phosphatase 92 U/L (45-117); BUN Blood Urea Nitrogen 10 mg/dL (7-18); Bicarbonate 26 mmol/L (21-32); Bilirubin Direct 0.2 mg/dL (0-0.2); Bilirubin Total 0.6 mg/dL (0.2-1.0); Glucose Level 111 mg/dL (74-106); Magnesium 1.9 mg/dL (1.8-2.4); NT PRO-BNP 16 pg/mL (<125); Potassium 3.6 mmol/L (3.5-5.1); Protein, Total 8.7 g/dL (6.4-8.2); Sodium Level 136 mmol/L (136-145); Troponin (Emerg Dept Use Only) 0.02 ng/mL (0.0-0.045)
--- NOTE | 2020-03-13 15:46 | RAD REPORT ---
EXAM DESCRIPTION: RAD - Chest Single View - 03/13/2020 3:23 pm CLINICAL HISTORY: CHEST PAIN COMPARISON: Portable July 2019 TECHNIQUE: AP portable chest image was obtained 03/13/2020 3:23 pm . FINDINGS: Lungs are clear. Heart and vasculature are normal. No measurable pleural effusion and no p neumothorax. No acute bony abnormality seen. No acute aortic findings suspected. IMPRESSION: No acute cardiopulmonary process. No significant interval change.
[2020-03-13 17:31] LABS: Urine Blood NEGATIVE (NEG); Urine Glucose NEGATIVE (NEG); Urine Protein NEGATIVE (NEG)
[2020-03-13] MEDS ORDERED: MORPHINE 4 MG/ML SYR ONE (17:49)
[2020-03-13] MEDS ORDERED: ONDANSETRON 4 MG/2 ML VIAL ONE (17:49)
--- NOTE | 2020-03-13 18:51 | EDPHYS ---
Physician Documentation [facility] Name: Ngozi Bear Age: 39 yrs Sex: Female : 1980 Arrival Date: 03/13/2020 Time: 14:05 Bed 25 Private MD: ED Physician Flo Motta HPI: 03/13 15:03 This 39 yrs old Female presents to ER via Ambulatory with complaints of Chest pm1 Pain. 15:03 The patient or guardian reports chest pain that is located primarily in the anterior pm1 aspect of left upper chest. Onset: this morning, at 10:00. The pain does not radiate. Associated signs and symptoms: Pertinent positives: dizziness, shortness of breath, left arm pain. The chest pain is described as sharp. Duration: The patient or guardian reports a single episode. Modifying factors: The symptoms are alleviated by nothing. the symptoms are aggravated by nothing. Severity of pain: in the emergency department the pain has improved. The patient has not experienced similar symptoms in the past. Patient reports constant pressure to left chest area that started at 1000 this AM. The pressure has been present the whole time. 1 hour prior to arrival the pressure felt like pain and it lasted for a few seconds. Currently she does not feel and pain, just some pressure . 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 - Social history:: Smoking status: Patient denies any tobacco usage or history of. ROS: 15:03 Cardiovascular: Positive for chest pain, Negative for edema, palpitations. pm1 15:03 Abdomen/GI: Negative for abdominal pain, nausea, vomiting, diarrhea, and constipation, pm1 Back: Negative for injury and pain, MS/Extremity: Negative for injury and deformity, Skin: Negative for injury, rash, and discoloration. 15:03 Constitutional: Positive for chills, Negative for fever, poor PO intake. 15:03 Respiratory: Positive for shortness of breath, Negative for cough, sputum production, wheezing. 15:03 Neuro: Positive for dizziness, Negative for headache, numbness, tingling. Exam: 15:03 Constitutional: This is a well developed, well nourished patient who is awake, alert, pm1 and in no acute distress. Head/Face: Normocephalic, atraumatic. Neck: Trachea midline, no thyromegaly or masses palpated, and no cervical lymphadenopathy. Supple, full range of motion without nuchal rigidity, or vertebral point tenderness. No Meningismus. 15:03 Back: No spinal tenderness. No costovertebral tenderness. Full range of motion. Skin: Warm, dry with normal turgor. Normal color with no rashes, no lesions, and no evidence of cellulitis. MS/ Extremity: Pulses equal, no cyanosis. Neurovascular intact. Full, normal range of motion. 15:03 Chest/axilla: Inspection: normal, Palpation: crepitus, is not appreciated, tenderness, that is moderate, of the focal point to anterior aspect of left upper chest. 15:03 Cardiovascular: Exam negative for acute changes, Rate: normal, Rhythm: regular, Pulses: no pulse deficits are appreciated, Edema: is not appreciated. 15:03 Respiratory: Exam negative for acute changes, respiratory distress, shortness of breath. 15:03 Abdomen/GI: Exam negative for acute changes, Inspection: obese Palpation: abdomen is soft and non-tender, in all quadrants. 15:03 Neuro: Exam negative for acute changes, Orientation: is normal, Mentation: is normal, Motor: is normal, moves all fours. Vital Signs: 14:09 BP 151 / 96; Pulse 96; Resp 16; Temp 98; Pulse Ox 99% ; Weight 68.04 kg; Height 4 ft. sv 11 in. (149.86 cm); 14:55 BP 158 / 84 RA (auto/lg); Pulse 95; Pulse Ox 99% on R/A; Pain 8/10; jp3 16:04 BP 149 / 87; Pulse 88; Resp 23; Pulse Ox 97% on R/A; Pain 8/10; hb 16:54 BP 151 / 80; Pulse 88; Resp 20; Pulse Ox 97% on R/A; Pain 8/10; jp3 17:44 BP 159 / 86; Pulse 81; Resp 23; Pulse Ox 97% on R/A; Pain 8/10; hb 18:32 BP 143 / 76; Pulse 89; Resp 14; Pulse Ox 87% on R/A; Pain 3/10; hb 14:09 Body Mass Index 30.30 (68.04 kg, 149.86 cm) sv MDM: 14:49 Patient medically screened. pm1 18:17 Data reviewed: vital signs. Data interpreted: Pulse oximetry: on room air is 97 %. pm1 Interpretation: normal. 18:49 Counseling: I had a detailed discussion with the patient and/or guardian regarding: the pm1 historical points, exam findings, and any diagnostic results supporting the discharge/admit diagnosis, lab results, radiology results, the need for outpatient follow up, to return to the emergency department if symptoms worsen or persist or if there are any questions or concerns that arise at home. 03/13 15:03 Order name: Basic Metabolic Panel pm1 03/13 15:03 Order name: CBC with Diff pm1 03/13 15:03 Order name: LFT's pm1 03/13 15:03 Order name: Magnesium pm1 03/13 15:03 Order name: NT PRO-BNP pm1 03/13 15:03 Order name: PT-INR pm1 03/13 15:03 Order name: Troponin (emerg Dept Use Only) pm1 03/13 15:32 Order name: CBC with Automated Diff; Complete Time: 16:06 EDMS 03/13 15:35 Order name: Protime (+INR); Complete Time: 16:06 EDMS 03/13 15:44 Order name: Basic Metabolic Panel; Complete Time: 16:06 EDMS 03/13 15:44 Order name: Liver (Hepatic) Function; Complete Time: 16:06 EDMS 03/13 15:44 Order name: Troponin (Emerg Dept Use Only); Complete Time: 16:06 EDMS 03/13 15:44 Order name: NT PRO-BNP; Complete Time: 16:06 EDMS 03/13 15:44 Order name: Magnesium; Complete Time: 16:06 EDMS 03/13 15:03 Order name: XRAY Chest (1 view) pm1 03/13 15:03 Order name: Cardiac monitoring; Complete Time: 15:18 pm1 03/13 15:03 Order name: EKG - Nurse/Tech; Complete Time: 15:18 pm1 03/13 15:03 Order name: IV Saline Lock; Complete Time: 15:18 pm1 03/13 15:03 Order name: Labs collected and sent; Complete Time: 15:18 pm1 03/13 15:03 Order name: O2 Per Protocol; Complete Time: 15:18 pm1 03/13 15:03 Order name: O2 Sat Monitoring; Complete Time: 15:18 pm1 03/13 15:49 Order name: RAD; Complete Time: 16:06 EDMS 03/13 16:54 Order name: Urine Dipstick--Ancillary (enter results) bd 03/13 16:54 Order name: Urine --Ancillary (enter results) bd 03/13 17:31 Order name: Urine --Ancillary; Complete Time: 17:45 EDMS 03/13 17:31 Order name: Urine Dipstick-Ancillary; Complete Time: 17:45 EDMS 03/13 18:07 Order name: Troponin (emerg Dept Use Only): due \T\ 1814; Complete Time: 18:49 hb 03/13 15:03 Order name: Urine Dipstick-Ancillary (obtain specimen); Complete Time: 16:55 pm1 03/13 15:03 Order name: Urine Test (obtain specimen); Complete Time: 16:55 pm1 Administered Medications: 17:39 Drug: morphine 4 mg Route: IVP; Site: left antecubital; hb 18:07 Follow up: Response: No adverse reaction hb 17:39 Drug: Zofran (Ondansetron) 4 mg Route: IVP; Site: left antecubital; hb 18:07 Follow up: Response: No adverse reaction hb Point of Care Testing: Urine : 16:54 hCG Reading: Negative; Control Reading: Positive; jp3 Disposition: 03/14 11:10 Co-signature as Attending Physician, Flo Motta MD I agree with the assessment and kdr plan of care. Disposition: 03/13/20 18:50 Discharged to Home. Impression: Chest pain, unspecified. - Condition is Stable. - Discharge Instructions: Nonspecific Chest Pain. - Medication Reconciliation Form, Thank You Letter, Antibiotic Education, Prescription Opioid Use form. - Follow up: Private Physician; When: 2 - 3 days; Reason: Recheck today's complaints, Continuance of care, Re-evaluation by your physician. Follow up: Emergency Department; When: As needed; Reason: Worsening of condition. - Problem is new. - Symptoms have improved. Signatures: Dispatcher [employer] Aretha Bee RN RN Flo Motta MD MD [facility] Rizwan Houston, DENITA COMMUNICATIONS SCIENTIST pm1 Migdalia Jordan, NEVAEH RN Corrections: (The following items were deleted from the chart) 03/13 18:16 15:03 Constitutional: Negative for fever, chills, and weight loss, Neck: Negative for pm1 injury, pain, and swelling, pm1 18:59 18:50 03/13/2020 18:50 Discharged to Home. Impression: Chest pain, unspecified. hb Condition is Stable. Forms are Medication Reconciliation Form, Thank You Letter, Antibiotic Education, Prescription Opioid Use. Follow up: Private Physician; When: 2 - 3 days; Reason: Recheck today's complaints, Continuance of care, Re-evaluation by your physician. Follow up: Emergency Department; When: As needed; Reason: Worsening of condition. Problem is new. Symptoms have improved. pm1
--- NOTE | 2020-03-13 18:51 | ER ---
Nurse's Notes [facility] Name: Ngozi Bear Age: 39 yrs Sex: Female : 1980 Arrival Date: 03/13/2020 Time: 14:05 Bed 25 Private MD: Diagnosis: Chest pain, unspecified Presentation: 03/13 14:08 Chief complaint: Patient states: sharp left sided chest pain started an hour ago, sv dizziness, and chills. Coronavirus screen: Client denies travel out of the [place] in the last 14 days. Ebola Screen: No symptoms or risks identified at this time. Risk Assessment: Do you want to hurt yourself or someone else? Patient reports no desire to harm self or others. Onset of symptoms was March 13, 2020. 14:08 Method Of Arrival: Ambulatory sv 14:08 Acuity: ALEXIA 3 sv 14:09 Initial Sepsis Screen: Does the patient meet any 2 criteria? HR > 90 bpm. No. Patient's sv initial sepsis screen is negative. Does the patient have a suspected source of infection? No. Patient's initial sepsis screen is negative. 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 - Social history:: Smoking status: Patient denies any tobacco usage or history of. Screenin:02 Abuse screen: Denies threats or abuse. Denies injuries from another. Nutritional hb screening: No deficits noted. Tuberculosis screening: No symptoms or risk factors identified. Fall Risk None identified. Assessment: 15:02 General: Appears in no apparent distress. Behavior is calm, cooperative. Pain: hb Complains of pain in chest Pain does not radiate. Pain currently is 2 out of 10 on a pain scale. at worst was 8 out of 10 on a pain scale. Quality of pain is described as sharp, stabbing, Pain began 2 hours ago. Neuro: Level of Consciousness is awake, alert, obeys commands, Oriented to person, place, time, situation. Cardiovascular: Capillary refill < 3 seconds Patient's skin is warm and dry. Respiratory: Respiratory effort is even, unlabored, Respiratory pattern is regular, symmetrical. GI: No signs and/or symptoms were reported involving the gastrointestinal system. : No signs and/or symptoms were reported regarding the genitourinary system. EENT: No signs and/or symptoms were reported regarding the EENT system. Derm: Skin is pink, warm \T\ dry. Musculoskeletal: No signs and/or symptoms reported regarding the musculoskeletal system. 16:00 Reassessment: Patient appears in no apparent distress at this time. No changes from hb previously documented assessment. Patient and/or family updated on plan of care and expected duration. Pain level reassessed. Patient is alert, oriented x 3, equal unlabored respirations, skin warm/dry/pink. 17:05 Reassessment: Patient appears in no apparent distress at this time. Patient and/or hb family updated on plan of care and expected duration. Pain level reassessed. Patient is alert, oriented x 3, equal unlabored respirations, skin warm/dry/pink. 17:44 Reassessment: Pt reports pain 8/10, requesting pain medication. GLASS WOOL BLANKET MACHINE FEEDER Rizwan notified, hb Zofran and Morphine administered as ordered. Awaiting repeat troponin due at 1815. remains at bedside. 18:30 Reassessment: Patient appears in no apparent distress at this time. Awaiting repeat hb troponin results at this time. Family remains at bedside. Vital Signs: 14:09 BP 151 / 96; Pulse 96; Resp 16; Temp 98; Pulse Ox 99% ; Weight 68.04 kg; Height 4 ft. sv 11 in. (149.86 cm); 14:55 BP 158 / 84 RA (auto/lg); Pulse 95; Pulse Ox 99% on R/A; Pain 8/10; jp3 16:04 BP 149 / 87; Pulse 88; Resp 23; Pulse Ox 97% on R/A; Pain 8/10; hb 16:54 BP 151 / 80; Pulse 88; Resp 20; Pulse Ox 97% on R/A; Pain 8/10; jp3 17:44 BP 159 / 86; Pulse 81; Resp 23; Pulse Ox 97% on R/A; Pain 8/10; hb 18:32 BP 143 / 76; Pulse 89; Resp 14; Pulse Ox 87% on R/A; Pain 3/10; hb 14:09 Body Mass Index 30.30 (68.04 kg, 149.86 cm) sv ED Course: 14:05 Patient arrived in ED. ds1 14:08 Triage completed. sv 14:08 Arm band placed on. sv 14:14 EKG completed in triage. Results shown to MD. sv 14:15 EKG done, by ED staff, reviewed by Flo Motta MD. sv 14:49 Rizwan Houston NP is PHCP. pm1 14:49 Flo Motta MD is Attending Physician. pm1 14:56 Bed in low position. Call light in reach. Side rails up X 1. Warm blanket given. Verbal jp3 reassurance given. Pulse ox on. NIBP on. 15:02 Migdalia Jordan, RN is Primary Nurse. hb 15:14 Initial lab(s) drawn, by me, sent to lab. Inserted saline lock: 20 gauge in left jp3 forearm, using aseptic technique. Blood collected. Patient maintains SpO2 saturation greater than 95% on room air. 16:01 Troponin (emerg Dept Use Only) Sent. sv 16:02 PT-INR Sent. sv 16:02 NT PRO-BNP Sent. sv 16:02 Magnesium Sent. sv 16:02 LFT's Sent. sv 16:02 CBC with Diff Sent. sv 16:02 Basic Metabolic Panel Sent. sv 16:02 XRAY Chest (1 view) Sent. sv 16:45 Urine collected: clean catch specimen, clear, anneliese colored. jp3 17:23 Urine --Ancillary (enter results) Sent. sv 17:24 Urine Dipstick--Ancillary (enter results) Sent. sv 18:54 No provider procedures requiring assistance completed. IV discontinued, intact, hb bleeding controlled, No redness/swelling at site. Administered Medications: 17:39 Drug: morphine 4 mg Route: IVP; Site: left antecubital; hb 18:07 Follow up: Response: No adverse reaction hb 17:39 Drug: Zofran (Ondansetron) 4 mg Route: IVP; Site: left antecubital; hb 18:07 Follow up: Response: No adverse reaction hb Point of Care Testing: Urine : 16:54 hCG Reading: Negative; Control Reading: Positive; jp3 Outcome: 18:50 Discharge ordered by MD. pm1 18:54 Discharged to home ambulatory. hb 18:54 Condition: stable 18:54 Discharge instructions given to patient, Instructed on discharge instructions, follow up and referral plans. medication usage, Demonstrated understanding of instructions, follow-up care, medications. 18:59 Patient left the ED. Signatures: Aretha Rodriguez, RN RN Solange Benites ds1 Rizwan Houston, GLASS WOOL BLANKET MACHINE FEEDER GLASS WOOL BLANKET MACHINE FEEDER pm1 Migdalia Jordan RN RN Chai Fofana jp3
[2020-03-13 21:41] VITALS: TEMP 98
[2020-03-13 21:48] VITALS: BP 143/76; O2SAT 87
--- NOTE | 2020-03-14 16:11 | EKG ---
Test Date: 2020-03-13 Test Time: 14:17:14 Wildlife Ecology Professor: ESPERANZA MEASUREMENT RESULTS: Intervals: Rate: 91 OK: 150 QRSD: 82 QT: 392 QTc: 482 [place]: P: 42 OK: 150 QRS: 49 T: 26 INTERPRETIVE STATEMENTS: Normal sinus rhythm Nonspecific ST and T wave abnormality Prolonged QT Abnormal ECG Compared to ECG 08/17/2019 21:48:29 Prolonged QT interval now present Sinus tachycardia no longer present Possible ischemia no longer present ST (T wave) deviation still present Electronically Signed On 03-14-20 16:08:18 CDT by Julio C Cartwright
== END 2020-03-13 18:59 | disposition home or self-care (01) ==
LOC: ER 14:03
DX: R07.9 Chest pain, unspecified (principal)
CPT/HCPCS: 93005; 85025; 80048; 36415; 83735; 81025; 85610; 80076; 81003; 84484 ×2; 83880; 71045; 96375; 96374; 99285; J2405

== ENCOUNTER 2020-09-17 12:39 | Observation (INO) | payer OTHER ==
--- OUTSIDE RECORDS SUMMARY | 2020-09-17 12:48 | XMS REPORT | Continuity of Care Document ---
:1980 Author Organization [facility] t Address [address] [place] [address] Care Team Providers Name Role Phone Kelly [...] 2019-06-16 Patient Coral Carrillo Thiago [id number] 00:00:00 00:00:00 Outreach Kelly Harrington [id number] [place] [id number] 2019-06-08 2019-06-08 Patient Thiago N[place] [id number] 00:00:00 00:00:00 Outreach Bing Harrington [id number] [place] [phone] [id number] Results This patient has no known results.
[2020-09-17 13:28] LABS: Absolute Lymphocytes (CBC) 1.2 K/uL (0.7-4.9); Basophils % 0.4 % (0-1.3); Hematocrit 32.7 % (36.0-45.0); Lymphocytes % 21.9 % (15.3-44.8); MPV 7.5 fL (7.6-11.3); RBC Red Blood Cell Count 3.75 M/uL (3.86-4.86)
[2020-09-17 13:33] LABS: Protime INR 1.11
[2020-09-17] MEDS ORDERED: MORPHINE 4 MG/ML SYR ONE (13:37)
[2020-09-17] MEDS ORDERED: ONDANSETRON 4 MG/2 ML VIAL ONE (13:37)
[2020-09-17 13:47] LABS: ALT/SGPT 165 U/L (12-78); AST/SGOT 191 U/L (15-37); Albumin 3.7 g/dL (3.4-5.0); Alkaline Phosphatase 85 U/L (45-117); BUN Blood Urea Nitrogen 7 mg/dL (7-18); Bicarbonate 25 mmol/L (21-32); Bilirubin Direct 0.1 mg/dL (0-0.2); Bilirubin Total 0.4 mg/dL (0.2-1.0); Glucose Level 107 mg/dL (74-106); Magnesium 2.1 mg/dL (1.8-2.4); NT PRO-BNP 15 pg/mL (<125); Protein, Total 8.4 g/dL (6.4-8.2); Sodium Level 139 mmol/L (136-145); Troponin (Emerg Dept Use Only) 0.03 ng/mL (0.0-0.045)
[2020-09-17] MEDS ORDERED: ACETAMINOPHEN 500 MG TAB ONE ×2 (14:46→23:39)
--- NOTE | 2020-09-17 14:57 | RAD REPORT ---
EXAM DESCRIPTION: Chay Single View09/17/2020 1:56 pm CLINICAL HISTORY: Chest pain COMPARISON: 2019 FINDINGS: The lungs appear clear of acute infiltrate. The heart is normal size IMPRESSION: No acute abnormalities displayed
[2020-09-17] MEDS ORDERED: LORAZEPAM 1 MG TABLET ONE (16:38)
--- NOTE | 2020-09-17 18:33 | ER ---
Nurse's Notes [facility] Name: Ngozi Bear Age: 40 yrs Sex: Female : 1980 Arrival Date: 09/17/2020 Time: 12:53 Bed 20 Private MD: Diagnosis: Chest pain, unspecified Presentation: 09/17 12:54 Chief complaint: Patient states: Chest and head pressure for 2 days. Near syncope ll1 feeling and feels shaky today. Coronavirus screen: Client denies travel out of the [place] in the last 14 days. At this time, the client does not indicate any symptoms associated with coronavirus-19. Ebola Screen: Patient denies travel to an Ebola-affected area in the 21 days before illness onset. Initial Sepsis Screen: Does the patient meet any 2 criteria? No. Patient's initial sepsis screen is negative. Does the patient have a suspected source of infection? No. Patient's initial sepsis screen is negative. Risk Assessment: Do you want to hurt yourself or someone else? Patient reports no desire to harm self or others. Onset of symptoms was September 16, 2020. 12:54 Method Of Arrival: EMS ll1 12:54 Acuity: ALEXIA 3 ll1 12:58 Chief complaint: EMS states: 20 G L AC, Initial BP 180/100 HR 120. ll1 Historical: - Allergies: 12:56 No Known Allergies; ll1 - PMHx: 12:56 Anxiety; Depression; Hypertension; ll1 - PSHx: 12:56 Appendectomy; Tubal ligation; wrist surg - right; ll1 - Immunization history:: Flu vaccine is up to date. - Social history:: Smoking status: Patient reports the use of cigarette tobacco products, denies chronic smoking, but will smoke occasionally, Reported history of juuling and/or vaping. Screenin:58 Abuse screen: Denies threats or abuse. Nutritional screening: No deficits noted. vg1 Tuberculosis screening: No symptoms or risk factors identified. Fall Risk No fall in past 12 months (0 pts). No secondary diagnosis (0 pts). IV access (20 points). Ambulatory Aid- None/Bed Rest/Nurse Assist (0 pts). Gait- Mental Status- Oriented to own ability (0 pts). Total Kramer Fall Scale indicates No Risk (0-24 pts). Assessment: 12:56 General: Appears in no apparent distress. uncomfortable, Behavior is calm, cooperative. vg1 Pain: Complains of pain in chest and headache Pain does not radiate. Pain currently is 5 out of 10 on a pain scale. Pain began 1 hour ago. Neuro: Level of Consciousness is awake, alert, obeys commands, Oriented to person, place, time, situation. Cardiovascular: Patient's skin is warm and dry. Chest pain is located in chest wall began 1 hour prior to arrival. Respiratory: Airway is patent Respiratory effort is even, unlabored. GI: Patient currently denies diarrhea, nausea, vomiting. : No signs and/or symptoms were reported regarding the genitourinary system. EENT: No signs and/or symptoms were reported regarding the EENT system. Derm: Skin is intact, is healthy with good turgor. Musculoskeletal: Circulation, motion, and sensation intact. 14:22 Reassessment: Patient appears in no apparent distress at this time. No changes from vg1 previously documented assessment. Patient and/or family updated on plan of care and expected duration. Pain level reassessed. Patient is alert, oriented x 3, equal unlabored respirations, skin warm/dry/pink. Pt states 'still in pain', stated headache 'feels worse'. Provider notified. Rated pain 8/10. 14:30 Reassessment: Received VO from Celso BOSS MINER to administer 1g of Tylenol PO x1. vg1 16:03 Reassessment: Patient appears in no apparent distress at this time. No changes from vg1 previously documented assessment. Patient and/or family updated on plan of care and expected duration. Pain level reassessed. Patient is alert, oriented x 3, equal unlabored respirations, skin warm/dry/pink. Pt stated 'my headache is still there and my chest still feels like pressure.' Provider notified. 16:12 Reassessment: Received VO to from Celso BOSS MINER to administer Ativan 1 mg PO x1. vg1 17:18 Reassessment: Patient appears in no apparent distress at this time. No changes from vg1 previously documented assessment. Patient is alert, oriented x 3, equal unlabored respirations, skin warm/dry/pink. 18:30 Reassessment: Received VO from Celso BOSS MINER to administer Nitro 0.4mg Sublingual once; vg1 every five minute if needed x3. 09/18 08:10 Reassessment: PT D/C HOME FROM Facile System. bp Vital Signs: 09/17 12:54 BP 146 / 100; Pulse 100; Resp 18; Temp 99.1; Pulse Ox 98% on R/A; Weight 90.72 kg; ll1 Height 4 ft. 11 in. (149.86 cm); Pain 5/10; 12:58 BP 157 / 85; Pulse 98; Resp 18; Pulse Ox 100% on R/A; vg1 14:21 BP 145 / 69; Pulse 84; Resp 16; Pulse Ox 98% on R/A; vg1 15:00 BP 148 / 72; Pulse 83; Resp 14; Pulse Ox 97% on R/A; vg1 15:30 BP 140 / 78; Pulse 77; Resp 20; Pulse Ox 99% on R/A; vg1 16:00 BP 144 / 66; Pulse 80; Resp 14; Pulse Ox 100% on R/A; vg1 17:00 BP 141 / 65; Pulse 75; Resp 16; Pulse Ox 100% on R/A; vg1 18:00 BP 117 / 58; Pulse 83; Resp 16; Pulse Ox 97% on R/A; vg1 18:38 BP 115 / 64; Pulse 78; vg1 18:43 BP 99 / 55; Pulse 87; vg1 12:54 Body Mass Index 40.39 (90.72 kg, 149.86 cm) ll1 18:43 Vitals done five minutes after Nitro 0.4 mg sublingual was given. Provider notified vg1 ED Course: 12:53 Patient arrived in ED. ss 12:55 Rizwan Houston NP is PHCP. pm1 12:55 Tony Garcia MD is Attending Physician. pm1 12:55 Maria L Light, NEVAEH is Primary Nurse. vg1 12:56 Triage completed. ll1 12:56 Arm band placed on Patient placed in an exam room, on a stretcher. ll1 12:59 Patient has correct armband on for positive identification. Bed in low position. Call vg1 light in reach. Side rails up X 1. Adult w/ patient. 12:59 head well puller on. Pulse ox on. NIBP on. vg1 12:59 Patient maintains SpO2 saturation greater than 95% on room air. vg1 13:15 Maintain EMS IV. Dressing intact. Good blood return noted. Site clean \T\ dry. Gauge \T\ vg 1 site: 20 Left AC. 13:16 Initial lab(s) drawn, by me, sent to lab. vg1 13:56 XRAY Chest (1 view) In Process Unspecified. EDMS 18:32 Ernst Lutz PA is Hospitalizing Provider. pm1 20:01 Jurgen Skinner DO is Hospitalizing Provider. pm1 22:25 Report given to NEVAEH Moreno. vg1 09/18 07:34 Primary Nurse role handed off by Maria L Light RN 08:10 Teo Mcmullen, RN is Primary Nurse. bp 08:11 No provider procedures requiring assistance completed. IV discontinued, intact, bp bleeding controlled, No redness/swelling at site. Pressure dressing applied. Administered Medications: 09/17 13:26 Drug: morphine 4 mg Route: IVP; Site: left antecubital; vg1 14:30 Follow up: Response: No adverse reaction vg1 13:26 Drug: Zofran (Ondansetron) 4 mg Route: IVP; Site: left antecubital; vg1 14:31 Follow up: Response: No adverse reaction vg1 14:33 Drug: Tylenol 1000 mg Route: PO; vg1 16:22 Follow up: Response: No adverse reaction; Pain is unchanged, physician notified vg1 16:22 Drug: Ativan (LORazepam) 1 mg Route: PO; vg1 17:41 Follow up: Response: No adverse reaction vg1 18:47 Drug: Aspirin Chewable Tablet 324 mg Route: PO; vg1 18:47 Drug: Nitroglycerin 0.4 mg Route: Sublingual; vg1 Outcome: 18:33 Decision to Hospitalize by Provider. pm1 09/18 08:11 Discharged to home ambulatory, with family. bp Condition: stable Discharge instructions given to patient, family, Instructed on discharge instructions, follow up and referral plans. medication usage, Demonstrated understanding of instructions, follow-up care, medications, Prescriptions given X 2. 08:11 Patient left the ED. bp Signatures: Dispatcher [employer] EDMS Andreina Brown Shelby, RN RN ss Rizwan Houston, BOSS MINER BOSS MINER pm1 Teo Mcmullen RN RN bp Maria L Light RN RN 1 Lu Agrawal RN RN ll1
--- NOTE | 2020-09-17 18:34 | EDPHYS ---
Physician Documentation [facility] Name: Ngozi Bear Age: 40 yrs Sex: Female : 1980 Arrival Date: 09/17/2020 Time: 12:53 Bed 20 Private MD: ED Physician Tony Garcia HPI: 09/17 13:09 This 40 yrs old Female presents to ER via EMS with complaints of Chest Pain. pm1 13:09 The patient or guardian reports chest pain that is located primarily in the mid-sternal pm1 area. Onset: yesterday. The pain does not radiate. 13:09 Associated signs and symptoms: Pertinent positives: headache, near-syncope, Pertinent pm1 negatives: abdominal pain, cough, nausea, shortness of breath, vomiting. The chest pain is described as a pressure. Duration: The patient or guardian reports a single episode, that is still ongoing. Modifying factors: The symptoms are alleviated by nothing. the symptoms are aggravated by nothing. Severity of pain: in the emergency department the pain is unchanged. The patient has experienced similar episodes in the past, multiple times. The patient has not recently seen a physician. Historical: - Allergies: 12:56 No Known Allergies; ll1 - PMHx: 12:56 Anxiety; Depression; Hypertension; ll1 - PSHx: 12:56 Appendectomy; Tubal ligation; wrist surg - right; ll1 - Immunization history:: Flu vaccine is up to date. - Social history:: Smoking status: Patient reports the use of cigarette tobacco products, denies chronic smoking, but will smoke occasionally, Reported history of juuling and/or vaping. ROS: 13:09 Constitutional: Negative for fever, chills, and weight loss. pm1 13:09 Respiratory: Negative for shortness of breath, cough, wheezing, and pleuritic chest pain, Abdomen/GI: Negative for abdominal pain, nausea, vomiting, diarrhea, and constipation, Back: Negative for injury and pain, MS/Extremity: Negative for injury and deformity, Skin: Negative for injury, rash, and discoloration. 13:09 Cardiovascular: Positive for chest pain, Negative for edema, palpitations. 13:09 Neuro: Positive for headache, near syncope, Negative for numbness, tingling, weakness. Exam: 13:09 Constitutional: This is a well developed, well nourished patient who is awake, alert, pm1 and in no acute distress. Head/Face: Normocephalic, atraumatic. Vital Signs: 12:54 BP 146 / 100; Pulse 100; Resp 18; Temp 99.1; Pulse Ox 98% on R/A; Weight 90.72 kg; ll1 Height 4 ft. 11 in. (149.86 cm); Pain 5/10; 12:58 BP 157 / 85; Pulse 98; Resp 18; Pulse Ox 100% on R/A; vg1 14:21 BP 145 / 69; Pulse 84; Resp 16; Pulse Ox 98% on R/A; vg1 15:00 BP 148 / 72; Pulse 83; Resp 14; Pulse Ox 97% on R/A; vg1 15:30 BP 140 / 78; Pulse 77; Resp 20; Pulse Ox 99% on R/A; vg1 16:00 BP 144 / 66; Pulse 80; Resp 14; Pulse Ox 100% on R/A; vg1 17:00 BP 141 / 65; Pulse 75; Resp 16; Pulse Ox 100% on R/A; vg1 18:00 BP 117 / 58; Pulse 83; Resp 16; Pulse Ox 97% on R/A; vg1 18:38 BP 115 / 64; Pulse 78; vg1 18:43 BP 99 / 55; Pulse 87; vg1 12:54 Body Mass Index 40.39 (90.72 kg, 149.86 cm) 1 18:43 Vitals done five minutes after Nitro 0.4 mg sublingual was given. Provider notified vg1 MDM: 12:55 Patient medically screened. pm1 18:11 ED course: Patient with some EKG changes present from February 2020. Troponin repeat in pm1 the ER still within normal limits but elevated to upper limits of normal. Discussed with Dr. Garcia and he recommended admitting the patient. 18:30 Data reviewed: vital signs. Data interpreted: Pulse oximetry: on room air is 97 %. pm1 Interpretation: normal. Counseling: I had a detailed discussion with the patient and/or guardian regarding: the historical points, exam findings, and any diagnostic results supporting the discharge/admit diagnosis, lab results, radiology results, the need for further work-up and treatment in the hospital. 09/17 12:57 Order name: Basic Metabolic Panel pm1 09/17 12:57 Order name: CBC with Diff pm09/17 12:57 Order name: LFT's; Complete Time: 14:32 pm09/17 12:57 Order name: Magnesium; Complete Time: 14:32 pm09/17 12:57 Order name: NT PRO-BNP; Complete Time: 14:32 pm09/17 12:57 Order name: PT-INR; Complete Time: 14:32 pm09/17 12:57 Order name: Troponin (emerg Dept Use Only); Complete Time: 14:32 pm09/17 12:58 Order name: Basic Metabolic Panel; Complete Time: 14:32 EDMS 09/17 12:58 Order name: CBC with Automated Diff; Complete Time: 14:32 EDMS 09/17 17:08 Order name: Troponin (emerg Dept Use Only); Complete Time: 18:06 pm09/17 18:52 Order name: COVID-19 : Document "Date of Symptom Onset" if Symptomatic. [facility] 09/17 19:55 Order name: SARS-COV-2 RT PCR; Complete Time: 20:01 EDMS 09/18 06:06 Order name: CBC with Automated Diff EDNM 09/17 12:57 Order name: XRAY Chest (1 view); Complete Time: 15:01 pm09/18 06:17 Order name: Troponin I EDNM 09/18 06:17 Order name: T4 Free EDMS 09/18 06:17 Order name: Thyroid Stimulating Hormone EDMS 09/18 06:18 Order name: Comprehensive Metabolic Panel EDMS 09/18 06:18 Order name: Phosphorus EDMS 09/18 06:18 Order name: Lipid Profile EDMS 09/18 06:18 Order name: Magnesium EDMS 09/18 06:44 Order name: Hemoglobin A1c EDMS 09/18 07:58 Order name: Transferrin Sat/Iron Binding EDMS 09/18 07:58 Order name: Ferritin EDMS 09/18 07:58 Order name: Vitamin B12 Level EDMS 09/17 12:57 Order name: EKG; Complete Time: 12:59 pm09/17 12:57 Order name: Cardiac monitoring; Complete Time: 13:02 pm09/17 12:57 Order name: EKG - Nurse/Tech; Complete Time: 13:02 pm09/17 12:57 Order name: IV Saline Lock; Complete Time: 13:15 pm1 09/17 12:57 Order name: Labs collected and sent; Complete Time: 13:15 pm1 09/17 12:57 Order name: O2 Per Protocol; Complete Time: 13:02 pm1 09/17 12:57 Order name: O2 Sat Monitoring; Complete Time: 13:02 pm1 09/17 20:09 Order name: CONS Physician Consult EDMS Administered Medications: 13:26 Drug: morphine 4 mg Route: IVP; Site: left antecubital; vg1 14:30 Follow up: Response: No adverse reaction vg1 13:26 Drug: Zofran (Ondansetron) 4 mg Route: IVP; Site: left antecubital; vg1 14:31 Follow up: Response: No adverse reaction vg1 14:33 Drug: Tylenol 1000 mg Route: PO; vg1 16:22 Follow up: Response: No adverse reaction; Pain is unchanged, physician notified vg1 16:22 Drug: Ativan (LORazepam) 1 mg Route: PO; vg1 17:41 Follow up: Response: No adverse reaction vg1 18:47 Drug: Aspirin Chewable Tablet 324 mg Route: PO; vg1 18:47 Drug: Nitroglycerin 0.4 mg Route: Sublingual; vg1 Disposition: 09/17/20 18:33 Hospitalization ordered by Jurgen Skinner for Observation. Preliminary diagnosis is Chest pain, unspecified. - Bed requested for [facility] ER HOLD. - Status is Observation. bp - Condition is Stable. - Problem is new. - Symptoms have improved. Addendum: 09/20/2020 17:33 Co-signature as Attending Physician, Tony Garcia MD. p kl Signatures: Dispatcher [employer] EDNM Tony Garcia MD MD pkJodi White RN RN bb Rizwan Houston, CALENDER SUPERVISOR CALENDER SUPERVISOR pm1 Teo Mcmullen RN RN bp Garcia, Victoria, RN RN vg1 Lu Agrawal RN RN ll1 Corrections: (The following items were deleted from the chart) 09/17 19:12 18:52 CORONAVIRUS ordered. [facility] EDNM 20:01 18:33 Hospitalization Ordered by Ernst SWAN for Observation. Preliminary diagnosis pm1 is Chest pain, unspecified. Bed requested for Telemetry/MedSurg (observation). Status is Observation. Condition is Stable. Problem is new. Symptoms have improved. pm1 20:29 20:01 09/17/2020 18:33 Hospitalization Ordered by Jurgen Skinner DO for Observation. bb Preliminary diagnosis is Chest pain, unspecified. Bed requested for Telemetry/MedSurg (observation). Status is Observation. Condition is Stable. Problem is new. Symptoms have improved. pm1 09/18 08:11 09/17 20:29 09/17/2020 18:33 Hospitalization Ordered by Jurgen Skinner DO for bp Observation. Preliminary diagnosis is Chest pain, unspecified. Bed requested for [facility] ER HOLD. Status is Observation. Condition is Stable. Problem is new. Symptoms have improved. bb
[2020-09-17] MEDS ORDERED: ASPIRIN 81 MG CHEWABLE TABLET ONE (18:52)
[2020-09-17] MEDS ORDERED: NITROGLYCERIN 0.4 MG/TAB SL ONE (18:52)
--- NOTE | 2020-09-17 21:40 | P.HP ---
Certification for Inpatient Patient admitted to: Observation With expected LOS: <2 Midnights Patient will require the following post-hospital care: None Practitioner: I am a practitioner with admitting privileges, knowledge of patient current condition, hospital course, and medical plan of care. Services: Services provided to patient in accordance with Admission requirements found in Title 42 Section 412.3 of the Code of Federal Regulations <Ernst Lutz John - Last Filed: 09/17/20 21:54> Patient admitted to: Observation With expected LOS: <2 Midnights <Jurgen Skinner - Last Filed: 09/18/20 07:19> Patient History Date of Service: 09/17/20 Primary Care Provider: Stephen Reason for admission: chest pain r/o History of Present Illness: Ms. Bear is a 40 yo F with anxiety here today with episode of 5/10 intermittent sternal chest pressure radiating to the left shoulder while she was at work. She became diaphoretic and dizzy. She said she felt like she was going to pass out and was unable to walk. She said this happened about 6 months ago but with no dizziness. Reports headache. She denies nausea and vomiting. She says she had a pharmacological stress test 6 months ago that was wnl. Initial trop 0.03, now 0.04. - Past Medical/Surgical History Diabetic: No -: Anxiety -: Obesity -: Depression -: HTN -: Tubal Ligation 2007 -: Appendectomy Psychosocial/ Personal History: The patient is . She has 2 children. 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 - Family History Mother -: Heart disease, Diabetes, Kidney disease Father -: Heart disease - Social History Smoking Status: Current some day smoker Alcohol use: No CD- Drugs: No Caffeine use: Yes Place of Residence: Home <Uzma Lutzshon Lopez - Last Filed: 09/17/20 21:54> Date of Service: 09/18/20 - Past Medical/Surgical History -: Fatty liver -: Prediabetes <Jurgen Skinner - Last Filed: 09/18/20 07:19> Allergies No Known Allergies Allergy (Verified 05/13/18 01:32) Home Medications: PARoxetine HCL [Paxil*] 10 mg PO BID 03/28/17 Multivitamin with Iron [Animal Shapes Plus Iron] 1 each PO DAILY #90 tab.chew 09/18/20 Pantoprazole Sodium [Protonix] 40 mg PO DAILY #30 tablet. 09/18/20 Review of Systems General: Sweats, Weakness, As per HPI Eyes: Unremarkable ENT: Unremarkable Respiratory: Unremarkable Cardiovascular: Chest Pain, Light Headedness, As per HPI Gastrointestinal: Unremarkable Genitourinary: Unremarkable Musculoskeletal: Unremarkable Integumentary: Unremarkable Neurological: Unremarkable Lymphatics: Unremarkable <Ernst Lutz - Last Filed: 09/17/20 21:54> Physical Examination - Physical Exam General: Alert, In no apparent distress, Oriented x3, Cooperative HEENT: Atraumatic, Normocephalic, PERRLA, Mucous membr. moist/pink, EOMI, Sclerae nonicteric Neck: Supple, 2+ carotid pulse no bruit, JVD not distended, No Thyromegaly, No LAD Respiratory: Clear to auscultation bilaterally, Normal air movement Cardiovascular: No edema, Normal pulses, Regular rate/rhythm, Normal S1 S2, No gallops, No rubs, No murmurs Capillary refill: <2 Seconds Gastrointestinal: Normal bowel sounds, Soft and benign, Non-distended, No ascites, No tenderness, No masses, No rebound, No guarding Musculoskeletal: No clubbing, No swelling, No contractures, No erythema, No tenderness, No warmth Integumentary: No rashes, No breakdown, No significant lesion, No tenderness/swelling, No erythema, No warmth, No cyanosis Neurological: Normal gait, Normal speech, Normal strength at 5/5 x4 extr, Normal tone, Sensation intact, Cranial nerves 3-12 intact, Normal affect Lymphatics: No axilla or inguinal lymphadenopathy - Studies Laboratory Data (last 24 hrs) 09/17/20 13:13: PT 12.8 H, INR 1.11 09/17/20 13:13: WBC 5.30, Hgb 10.7 L, Hct 32.7 L, Plt Count 235 09/17/20 13:13: Sodium 139, Potassium 4.0, BUN 7, Creatinine 0.57, Glucose 107 H, Magnesium 2.1, Total Bilirubin 0.4, AST 191 H, ALT 165 H, Alkaline Phosphatase 85 <Ernst Lutz - Last Filed: 09/17/20 21:54> - Studies Laboratory Data (last 24 hrs) 09/17/20 13:13: PT 12.8 H, INR 1.11 09/17/20 13:13: WBC 5.30, Hgb 10.7 L, Hct 32.7 L, Plt Count 235 09/17/20 13:13: Sodium 139, Potassium 4.0, BUN 7, Creatinine 0.57, Glucose 107 H, Magnesium 2.1, Total Bilirubin 0.4, AST 191 H, ALT 165 H, Alkaline Phosphatase 85 <Jurgen Skinner - Last Filed: 09/18/20 07:19> Assessment and Plan - Plan Assessment Plan cardiology consulted, on telemetry trend troponins and EKG morphine as needed for chest pain A1c, TSH/T4, lipid panel pending abdominal ultrasound pending, previous imaging showed NAFLD dietitian consulted Discharge Plan: Home Plan to discharge in: 24 Hours - Advance Directives Does patient have a Living Will: No Does patient have a Durable POA for Healthcare: No - Code Status/Comfort Care Code Status Assessed: Yes (full code) Critical Care: No Time Spent Managing Pts Care (In Minutes): 70 <Ernst Lutz - Last Filed: 09/17/20 21:54> - Plan Agree with evaluation, assessment and plan of care. Please see discharge summary for more details. <Jurgen Skinner - Last Filed: 09/18/20 07:19>
[2020-09-17 21:48] VITALS: BMI 40.4
[2020-09-17] MEDS ORDERED: ACETAMINOPHEN 500 MG TAB PO PRN (21:53)
[2020-09-17] MEDS ORDERED: MELATONIN 5 MG TABLET PO PRN (21:53)
[2020-09-17] MEDS ORDERED: MORPHINE 2 MG/ML SYR IV PRN (21:53)
[2020-09-17] MEDS ORDERED: ONDANSETRON 4 MG/2 ML VIAL IV PRN (21:53)
[2020-09-17] MEDS ORDERED: MELATONIN 5 MG TABLET PO ONE (23:47)
[2020-09-18 05:58] LABS: Absolute Lymphocytes (CBC) 1.5 K/uL (0.7-4.9); Basophils % 0.6 % (0-1.3); Hematocrit 29.5 % (36.0-45.0); Lymphocytes % 28.7 % (15.3-44.8); MPV 7.8 fL (7.6-11.3); RBC Red Blood Cell Count 3.38 M/uL (3.86-4.86)
[2020-09-18 06:15] LABS: ALT/SGPT 124 U/L (12-78); AST/SGOT 105 U/L (15-37); Albumin 3.2 g/dL (3.4-5.0); Alkaline Phosphatase 73 U/L (45-117); BUN Blood Urea Nitrogen 7 mg/dL (7-18); Bicarbonate 26 mmol/L (21-32); Bilirubin Total 0.4 mg/dL (0.2-1.0); Glucose Level 107 mg/dL (74-106); HDL Cholesterol 53 mg/dL (40-60); LDL Cholesterol, Calculated 103 (<130); Magnesium 2.1 mg/dL (1.8-2.4); Phosphorus 3.8 mg/dL (2.5-4.9); Potassium 3.6 mmol/L (3.5-5.1); Protein, Total 7.2 g/dL (6.4-8.2); Sodium Level 136 mmol/L (136-145)
[2020-09-18 06:16] LABS: Troponin I 0.03 ng/mL (0.0-0.045)
[2020-09-18 06:17] LABS: Thyroid Stimulating Hormone 5.54 uIU/mL (0.360-3.740)
[2020-09-18 06:21] VITALS: O2SAT 97
--- NOTE | 2020-09-18 07:17 | P.DS ---
Admission Date: 09/17/20 Discharge Date: 09/18/20 Primary Care Provider: Stephen Disposition: ROUTINE DISCHARGE Discharge Condition: GOOD Reason for Admission: chest pain r/o Consultations: Cardiology-Dr. Cartwright Procedures: COVID: Negative Medical Problem List: Chest pain, dizziness GERD Fatty liver with elevated liver function Depression Anemia, chronic likely Iron def. Prediabetes Obesity, BMI 40 Brief History of Present Illness: 40 yo HF with depression/anxiety and GERD presented to the ER with episode of 5/10 intermittent sternal chest pressure radiating to the left shoulder while she was at work. She became diaphoretic and dizzy. She said she felt like she was going to pass out and was unable to walk. She said this happened about 6 months ago but with no dizziness. Reports headache. She denies nausea and vomiting. She says she had a pharmacological stress test 6 months ago that was wnl. Initial trop 0.03, now 0.04. She also reports having a heart catheterization at [facility] about 6 month to one year ago that was normal. Patient was admitted for OBS. Hospital Course: Patient presented with chest pain and dizziness. Patient was admitted for further evaluation and observation. Patient with underlying history of GERD, depression/anxiety, and fatty liver. Cardiac enzymes unremarkable. Patient reports having cardiac stress tests in the past which was unremarkable. Prior stress test done in 2018 showed no stress-induced ischemia. She also reports having a heart catheterization within the past 6 to 12 months at [facility] which was unremarkable. Patient without significant pain. Patient seen and evaluated by cardiology. No intervention was required. Chest pain may be related to GERD. At discharge patient will continue with Protonix 40 mg daily. Records from [facility] to confirm heart catheterization will be obtained. Patient may follow-up with cardiology in 1 to 2 weeks to follow-up to hospitalization. Also recommend patient to see GI as an outpatient to further evaluate. Patient would benefit with EGD to further address. Education on GERD will be provided. Recommend no excessive use of nonsteroidal anti-inflammatories. Patient with elevated liver function test. This has improved with repeat test. Hepatitis panel sent for evaluation. Prior CT scan shows evidence of fatty liver. Elevated liver function may be related to fatty liver. Recommend follow-up with GI as an outpatient to further address and monitor. Education on fatty liver will be provided. Lifestyle modification education provided. Patient with depression and anxiety. This appears stable. At discharge she will continue with her medication of Paxil. Recommend follow-up with her PCP to further monitor and adjust. Patient with anemia likely chronic. Patient likely with iron deficiency. Iron and B12 studies obtained prior to discharge. Patient may continue with multivitamin with iron daily. Recommend follow-up with her PCP to further monitor and address. Recommend recheck CBC in 1 to 2 weeks to monitor progress. Patient would benefit with GI evaluation as an outpatient to further evaluate. Patient would benefit with EGD and colonoscopy to evaluate etiology of suspected iron deficiency anemia. Patient with obesity. BMI 40. Lifestyle modification education provided. Patient with prediabetes. Hemoglobin A1c 5.9. Education on prediabetes provided. Recommend recheck hemoglobin A1c in 3 to 6 months to monitor her progress. If hemoglobin above 6.5 then she will need to follow-up with her PCP to further address as this will indicate diabetes. Vital Signs/Physical Exam: Temp Pulse Resp BP Pulse Ox 98.2 F 74 16 132/75 95 09/18/20 04:00 09/18/20 04:00 09/18/20 04:00 09/18/20 04:00 09/18/20 04:00 General: Alert, In no apparent distress, Oriented x3, Cooperative HEENT: Atraumatic Neck: Supple Respiratory: Clear to auscultation bilaterally, Normal air movement Cardiovascular: Normal pulses, Regular rate/rhythm Gastrointestinal: Normal bowel sounds, Soft and benign, Non-distended, No tenderness, No masses, No rebound, No guarding Musculoskeletal: No erythema, No tenderness, No warmth Integumentary: No tenderness/swelling, No erythema, No warmth, No cyanosis Neurological: Normal speech, Normal strength at 5/5 x4 extr, Normal tone, Normal affect Laboratory Data at Discharge: WBC 5.20 K/uL (4.3-10.9) 09/18/20 05:20 Hgb 9.5 g/dL (12.0-15.0) L 09/18/20 05:20 Hct 29.5 % (36.0-45.0) L 09/18/20 05:20 Plt Count 212 K/uL (152-406) 09/18/20 05:20 PT 12.8 SECONDS (9.5-12.5) H 09/17/20 13:13 INR 1.11 09/17/20 13:13 Sodium 136 mmol/L (136-145) 09/18/20 05:20 Potassium 3.6 mmol/L (3.5-5.1) 09/18/20 05:20 BUN 7 mg/dL (7-18) 09/18/20 05:20 Creatinine 0.52 mg/dL (0.55-1.3) L 09/18/20 05:20 Glucose 107 mg/dL (74-106) H 09/18/20 05:20 Phosphorus 3.8 mg/dL (2.5-4.9) 09/18/20 05:20 Magnesium 2.1 mg/dL (1.8-2.4) 09/18/20 05:20 Total Bilirubin 0.4 mg/dL (0.2-1.0) 09/18/20 05:20 AST 105 U/L (15-37) H 09/18/20 05:20 ALT 124 U/L (12-78) H 09/18/20 05:20 Alkaline Phosphatase 73 U/L (45-117) 09/18/20 05:20 Troponin I 0.03 ng/mL (0.0-0.045) 09/18/20 05:20 Triglycerides 123 mg/dL (<150) 09/18/20 05:20 Cholesterol 181 mg/dL (<200) 09/18/20 05:20 HDL Cholesterol 53 mg/dL (40-60) 09/18/20 05:20 Cholesterol/HDL Ratio 3.42 09/18/20 05:20 Home Medications: PARoxetine HCL [Paxil*] 10 mg PO BID 03/28/17 Multivitamin with Iron [Animal Shapes Plus Iron] 1 each PO DAILY #90 tab.chew 09/18/20 Pantoprazole Sodium [Protonix] 40 mg PO DAILY #30 tablet. 09/18/20 New Medications: Multivitamin with Iron [Animal Shapes Plus Iron] 1 each PO DAILY #90 tab.chew Pantoprazole Sodium [Protonix] 40 mg PO DAILY #30 tablet. Physician Discharge Instructions: Patient presented with chest pain and dizziness. Patient was admitted for further evaluation and observation. Patient with underlying history of GERD, depression/anxiety, and fatty liver. Cardiac enzymes unremarkable. Patient reports having cardiac stress tests in the past which was unremarkable. Prior stress test done in 2018 showed no stress-induced ischemia. She also reports having a heart catheterization within the past 6 to 12 months at [facility] which was unremarkable. Patient without significant pain. Patient seen and evaluated by cardiology. No intervention was required. Chest pain may be related to GERD. At discharge patient will continue with Protonix 40 mg daily. Records from [facility] to confirm heart catheterization will be obtained. Patient may follow-up with cardiology in 1 to 2 weeks to follow-up to hospitalization. Also recommend patient to see GI as an outpatient to further evaluate. Patient would benefit with EGD to further address. Education on GERD will be provided. Recommend no excessive use of nonsteroidal anti-inflammatories. Patient with elevated liver function test. This has improved with repeat test. Hepatitis panel sent for evaluation. Prior CT scan shows evidence of fatty liver. Elevated liver function may be related to fatty liver. Recommend follow-up with GI as an outpatient to further address and monitor. Education on fatty liver will be provided. Lifestyle modification education provided. Patient with depression and anxiety. This appears stable. At discharge she will continue with her medication of Paxil. Recommend follow-up with her PCP to further monitor and adjust. Patient with anemia likely chronic. Patient likely with iron deficiency. Iron and B12 studies obtained prior to discharge. Patient may continue with multivitamin with iron daily. Recommend follow-up with her PCP to further monitor and address. Recommend recheck CBC in 1 to 2 weeks to monitor progress. Patient would benefit with GI evaluation as an outpatient to further evaluate. Patient would benefit with EGD and colonoscopy to evaluate etiology of suspected iron deficiency anemia. Patient with obesity. BMI 40. Lifestyle modification education provided. Patient with prediabetes. Hemoglobin A1c 5.9. Education on prediabetes provided. Recommend recheck hemoglobin A1c in 3 to 6 months to monitor her progress. If hemoglobin above 6.5 then she will need to follow-up with her PCP to further address as this will indicate diabetes. Diet: AHA Activity: Ad ford Followup: EMERITA STANLEY [Primary Care Provider] - Time spent managing pt's care (in minutes): 55
[2020-09-18 07:56] VITALS: BP 127/81; TEMP 98.3
[2020-09-18 07:58] LABS: Ferritin 25.2 ng/mL (8-388)
--- NOTE | 2020-09-18 08:53 | RAD REPORT ---
EXAM DESCRIPTION: US - Abdomen Exam Limited - 09/18/2020 7:35 am CLINICAL HISTORY: evaluate liver and gallbladder COMPARISON: CT ABD PELVIS W CONTRAST dated 09/13/2014 FINDINGS: No gallstones, sludge or other abnormalities within the gallbladder lumen. There is no wal l thickening or pericholecystic fluid. No common duct stone or biliary tree dilatation identified. Liver is prominent in size, particularly the left lobe. This is a normal variant similar to 2015. Dif fuse fatty infiltration is present also seen on the 2015 study. IMPRESSION: Normal gallbladder and biliary tree ultrasound. Diffuse fatty infiltration of a partially imaged liver.
[2020-09-18] MEDS ORDERED: ENOXAPARIN 40 MG/0.4 ML SQ SCH (09:00)
--- NOTE | 2020-09-18 10:50 | EKG ---
Test Date: 2020-09-17 Test Time: 12:55:24 Policy Manager: MEMO MEASUREMENT RESULTS: Intervals: Rate: 99 MO: 144 QRSD: 80 QT: 362 QTc: 464 [place]: P: 37 MO: 144 QRS: 19 T: 3 INTERPRETIVE STATEMENTS: Normal sinus rhythm Nonspecific T wave abnormality Prolonged QT Abnormal ECG Compared to ECG 03/13/2020 14:17:14 T-wave abnormality now present ST (T wave) deviation no longer present Electronically Signed On 09-18-20 10:46:52 CDT by Julio C Cartwright
--- NOTE | 2020-09-18 17:28 | CON ---
Date of Consultation: 09/18/2020 Reason For Consultation: Atypical chest pain. History Of Present Illness: Ms. Bear is a 40-year-old woman, has recently had a negative cardiac workup. She has history of anxiety, depression, and hypertension. Came in with mid-epigastric ches t pain that has been going on for about 2 days. No nausea, vomiting, diaphoresis, PND, orthopnea, pe milton edema, palpitation, or syncope. EKG is normal. Labs were normal, except for elevated liver func tions. Her troponin and BNP were negative. She was slightly anemic. Her chest x-ray was negative. Allergies: NONE. Review of Systems: Negative. Social History: Negative. Family History: Negative. Medications: At home include Paxil and Protonix. Physical Examination: Vital Signs: Stable, afebrile. HEENT: Negative. Neck: Supple with no bruit. Chest: Clear. Cardiac: Regular rhythm and rate. No murmurs, gallops, or rubs. Abdomen: Benign. Extremities: Revealed no clubbing, cyanosis, or edema. Diagnostic Data: Unremarkable. Impression And Plan: I think her symptoms are more consistent with gastroesophageal reflux disease. I would send her home on proton-pump inhibitors, she has not taken it. She needs her liver function tests followed up. I think she needs an appointment with Ms. Jeane Mitchell to recheck her liver function here in the office in the near future if the pain persists. MANSI/[place] Voice ID: [id number] Report ID: [id number]
== END 2020-09-18 07:57 | disposition home or self-care (01) ==
LOC: ER 12:39 → ERHOLD 20:32
PROVIDERS: ADMIT Family Medicine; ATTEND Family Medicine
DX: R07.9 Chest pain, unspecified (principal); R42 Dizziness and giddiness; Z20.822 Contact with and (suspected) exposure to COVID-19; K21.9 Gastro-esophageal reflux disease without esophagitis; K76.0 Fatty (change of) liver, not elsewhere classified; F32.9 Major depressive disorder, single episode, unspecified; D64.9 Anemia, unspecified; R73.03 Prediabetes; E66.9 Obesity, unspecified; Z68.41 Body mass index [BMI] 40.0-44.9, adult; F41.9 Anxiety disorder, unspecified; I10 Essential (primary) hypertension; F17.210 Nicotine dependence, cigarettes, uncomplicated; F17.290 Nicotine dependence, other tobacco product, uncomplicated
CPT/HCPCS: 93005; 85025 ×2; 80048; 36415; 83735 ×2; 84100; 85610; 80061; 80076; 84443; 83036; 84484 ×3; 84439; 82728; 82607; 83540; 80053; 83880; 84466; 71045; 76705; 94760; U0003; J2405; 96374; 96375; 99285; G0378

== ENCOUNTER 2021-04-02 03:12 | Emergency (ER) | payer OTHER, SELFPAY ==
[2021-04-02] MEDS ORDERED: NA CHLORIDE 0.9% 1,000 ML ONE (03:36)
[2021-04-02] MEDS ORDERED: FAMOTIDINE 20 MG/2 ML VIAL IV ONE (03:36)
[2021-04-02] MEDS ORDERED: ONDANSETRON 4 MG/2 ML VIAL ONE (03:36)
[2021-04-02] MEDS ORDERED: MORPHINE 4 MG/ML SYR ONE (03:36)
[2021-04-02 03:38] LABS: Urine Blood 3+ (Negative); Urine Glucose Negative (Negative); Urine Protein 1+ (Negative); Urine Specific Gravity 1.015 (1.005-1.030); Urine pH 6.5 (5.0-7.0)
[2021-04-02] MEDS ORDERED: HYDROMORPHONE HCL 1 MG/ML INJ ONE ×2 (03:46→06:22)
[2021-04-02 04:05] LABS: Absolute Lymphocytes (CBC) 1.2 K/uL (0.7-4.9); Basophils % 0.1 % (0-1.3); Hematocrit 29.6 % (36.0-45.0); Lymphocytes % 9.5 % (15.3-44.8); MPV 7.8 fL (7.6-11.3); RBC Red Blood Cell Count 3.48 M/uL (3.86-4.86)
[2021-04-02 04:09] LABS: Urine Specific Gravity/Preg 1.015 (1.005-1.030)
[2021-04-02 04:10] LABS: Barbiturates NEGATIVE (NEGATIVE); Benzodiazepines NEGATIVE (NEGATIVE); Cocaine NEGATIVE (NEGATIVE); METHAMPHETAM NEGATIVE (NEGATIVE); Methadone NEGATIVE (NEGATIVE); Opiates NEGATIVE (NEGATIVE); Phencyclidine NEGATIVE (NEGATIVE); THC Cannibis NEGATIVE (NEGATIVE)
[2021-04-02 04:12] LABS: ALT/SGPT 33 U/L (12-78); AST/SGOT 21 U/L (15-37); Albumin 2.9 g/dL (3.4-5.0); Alkaline Phosphatase 83 U/L (45-117); BUN Blood Urea Nitrogen 5 mg/dL (7-18); Bicarbonate 24 mmol/L (21-32); Bilirubin Direct 0.4 mg/dL (0-0.2); Bilirubin Total 0.7 mg/dL (0.2-1.0); Glucose Level 154 mg/dL (74-106); Lipase 85 U/L (73-393); Potassium 3.1 mmol/L (3.5-5.1); Protein, Total 8.5 g/dL (6.4-8.2); Sodium Level 134 mmol/L (136-145)
[2021-04-02] MEDS ORDERED: CEFTRIAXONE 1000 MG/VIAL ONE (06:22)
[2021-04-02] MEDS ORDERED: METRONIDAZOLE 500mg IVPB 500 MG/100 ML BAG IV ONE (06:22)
[2021-04-02] MEDS ORDERED: POTASSIUM CL SA 10 MEQ TAB PO ONE (07:09)
[2021-04-02] MEDS ORDERED: HYDROMORPHONE HCL 0.5 MG/0.5 ML INJ ONE (07:45)
--- NOTE | 2021-04-02 07:51 | RAD REPORT ---
EXAM DESCRIPTION: US - Transvaginal Study Probe - 04/02/2021 7:12 am CLINICAL HISTORY: Pelvic pain and COMPARISON: March 2021 cat scan FINDINGS: The uterus measures 10 x 4 x 6cm. A fibroid is not seen. The endometrial stripe measures 1 3 millimeters. 6.3 centimeter heterogeneous structure is present within the right adnexal better visualized on the C T scan. 4.6 x 3 centimeter heterogeneous structure is present within the left adnexa also better seen on the prior CAT scan. In addition there is a 4 centimeter complex cystic fluid collection measuring 4 centimeters posterior to the uterus abutting the left adnexal soft tissue. A normal appearing ovary is not clearly visualized. IMPRESSION: These findings may indicate pelvic inflammatory disease . If the patient does not have c linical symptoms to suggest this then hemorrhagic ovarian cysts would be a consideration. Followup ul trasound after treatment is recommended
--- NOTE | 2021-04-02 07:57 | ER ---
Nurse's Notes [facility] Name: Ngozi Bear Age: 40 yrs Sex: Female : 1980 Arrival Date: 04/02/2021 Time: 03:17 Bed 6 Private MD: Diagnosis: Lower abdominal pain, unspecified Presentation: 04/02 03:26 Chief complaint: Patient states: Abdominal pain that starts at the epigastric area dc2 radiates to lower abd and then to bilateral sides in pelvic area. Risk Assessment: Do you want to hurt yourself or someone else? Patient reports no desire to harm self or others. Onset of symptoms was March 30, 2021. 03:26 Method Of Arrival: Ambulatory dc2 03:26 Acuity: ALEXIA 3 dc2 03:30 Ebola Screen: Patient negative for fever greater than or equal to 101.5 degrees dc2 Fahrenheit, and additional compatible Ebola Virus Disease symptoms Patient denies exposure to infectious person. Patient denies travel to an Ebola-affected area in the 21 days before illness onset. No symptoms or risks identified at this time. 03:30 Initial Sepsis Screen: Does the patient have a suspected source of infection? No. dc2 Patient's initial sepsis screen is negative. 03:30 Initial Sepsis Screen: Does the patient meet any 2 criteria? No. Patient's initial dc2 sepsis screen is negative. 03:30 Coronavirus screen: Vaccine status: Patient reports receiving the 2nd dose of the covid dc2 vaccine. Client denies travel out of the [place] in the last 14 days. At this time, the client does not indicate any symptoms associated with coronavirus-19. Triage Assessment: 03:28 General: Appears in no apparent distress. comfortable, obese, well groomed, Behavior is dc2 calm, cooperative. Pain: Complains of pain in epigastric pain that radiates to lower abd/ pelvic area then spreading to bilateral sides. Historical: - Allergies: 03:27 No Known Allergies; dc2 - PMHx: 03:27 Anxiety; Depression; Hypertension; dc2 - Immunization history:: Adult Immunizations up to date, Client reports receiving the 2nd dose of the Covid vaccine. - Social history:: Smoking status: Patient reports the use of cigarette tobacco products, smokes one pack cigarettes per day. Patient uses alcohol, occasionally. only on a social basis. Patient/guardian denies using street drugs, IV drugs. Screenin:30 Abuse screen: Denies threats or abuse. Denies injuries from another. Nutritional dc2 screening: No deficits noted. Tuberculosis screening: No symptoms or risk factors identified. Never had TB. Fall Risk None identified. No fall in past 12 months (0 pts). No secondary diagnosis (0 pts). No IV (0 pts). Ambulatory Aid- None/Bed Rest/Nurse Assist (0 pts). Gait- Normal/Bed Rest/Wheelchair (0 pts) Mental Status- Oriented to own ability (0 pts). Total Kramer Fall Scale indicates No Risk (0-24 pts). Assessment: 03:30 GI: Bowel sounds present X 4 quads. dc2 03:30 GI: Abd is soft Abdomen is tender to palpation in Epigastric pain that radiates dc2 straight down to suprabubic area that radiates around to back on both sides. Reports lower abdominal pain, diarrhea, nausea, Pain is 8 out of 10 on a pain scale. 07:00 Reassessment: RECD REPORT FROM KORI HERRING. 40YO HF P/W LOWER ABDOMINAL PAIN. U/S AT B/S. bp 07:53 Reassessment: No changes from previously documented assessment. Patient and/or family ll1 updated on plan of care and expected duration. Pain level reassessed. Patient is alert, oriented x 3, equal unlabored respirations, skin warm/dry/pink. 08:13 Reassessment: PT D/C HOME AMBULATORY WITH FAMILY, DX WITH NONSPECIFIC LOWER ABDOMINAL bp PAIN. Vital Signs: 03:30 BP 116 / 77; Pulse 105; Resp 20; Temp 99.1; Pulse Ox 99% ; Pain 8/10; dc2 03:30 BP 116 / 77; Pulse 105; Resp 20; Temp 99.1; Pulse Ox 99% ; Weight 99.79 kg; Height 5 dc2 ft. 7 in. (170.18 cm); Pain 8/10; 07:52 BP 104 / 63; Pulse 82; Resp 17; Pulse Ox 98% ; ll1 03:30 Body Mass Index 34.46 (99.79 kg, 170.18 cm) dc2 ED Course: 03:17 Patient arrived in ED. wm 03:21 Avelino Hills MD is Attending Physician. 7 03:22 Tony Almodovar, RN is Primary Nurse. mr2 03:27 Triage completed. dc2 03:27 Arm band placed on right wrist. dc2 03:30 Patient has correct armband on for positive identification. Placed in gown. Bed in low dc2 position. Call light in reach. Adult w/ patient. court monitor on. Pulse ox on. NIBP on. Door closed. Lights dimmed. 03:38 Initial lab(s) drawn, by me, sent to lab. tt3 03:38 Inserted saline lock: 20 gauge in right antecubital area, using aseptic technique. tt3 Blood collected. 03:43 Basic Metabolic Panel Sent. dc2 03:43 CBC with Diff Sent. dc2 03:43 Hepatic Function Sent. dc2 03:43 Lipase Sent. dc2 03:43 ETOH Level Sent. dc2 03:43 UDS Sent. dc2 03:44 Urine Dipstick-Ancillary Sent. dc2 03:44 Basic Metabolic Panel Sent. dc2 04:[address] via stretcher. dc2 04:37 Patient moved back from CT. dc2 04:38 No provider procedures requiring assistance completed. dc2 04:41 CT Abd/Pelvis - IV Contrast Only In Process Unspecified. EDMS 06:58 Ultrasound at bedside. dc2 07:03 Report given to Wayne. dc2 07:05 Primary Nurse role handed off by Tony Almodovar, RN bp 07:05 Teo Mcmullen, RN is Primary Nurse. bp 07:07 Chon Lei PA is PHCP. jr8 07:12 US Transvaginal Study (Probe) In Process Unspecified. EDMS 08:13 IV discontinued, intact, bleeding controlled, No redness/swelling at site. Pressure bp dressing applied. Administered Medications: 03:38 Drug: NS 0.9% 1000 ml Route: IV; Rate: 1000 ml; Infused Over: 1 hrs; Site: right mr2 antecubital; 04:40 Follow up: IV Status: Completed infusion; IV Intake: 1000ml dc2 03:38 Drug: Zofran (Ondansetron) 4 mg Route: IVP; Site: right antecubital; mr2 04:15 Follow up: Response: Nausea is decreased dc2 03:38 Drug: Pepcid (famotidine) 20 mg Route: IVP; Site: right antecubital; mr2 04:15 Follow up: Response: No adverse reaction dc2 03:44 Not Given (Other Intervention Used): morphine 4 mg IVP once; RASS on ADMIN: Combtv4, mr2 Very Agttd3, Agttd2, Rstlss1, AlertClm0, Drwsy-1, Lt Sdtn-2, Mod Sdtn-3, Dp Sdtn-4, UnArsble-5 03:50 Drug: Dilaudid (HYDROmorphone) 0.5 mg Route: IVP; Site: right antecubital; mr2 04:30 Follow up: Response: Pain is decreased dc2 06:35 Drug: Dilaudid (HYDROmorphone) 0.5 mg Route: IVP; Site: right antecubital; mr2 07:53 Follow up: Response: No adverse reaction; RASS: Alert and Calm (0) ll1 06:48 Drug: Flagyl (metroNIDAZOLE) 500 mg Volume: 100 ml; Route: IVPB; Rate: 200 ml/hr; mr2 Infused Over: 30 mins; Site: right antecubital; 07:53 Follow up: Response: No adverse reaction; IV Status: Completed infusion; IV Intake: ll1 100ml 06:49 Drug: Rocephin (cefTRIAXone) 1 grams Route: IV; Rate: per protocol; Site: right mr2 antecubital; 07:54 Follow up: Response: No adverse reaction; IV Status: Completed infusion; IV Intake: [id number] 07:25 Drug: Potassium Chloride 40 mEq Route: PO; iw 07:54 Follow up: Response: No adverse reaction ll1 07:53 Drug: Dilaudid (HYDROmorphone) 0.5 mg Route: IVP; Site: right antecubital; ll1 08:15 Follow up: Response: No adverse reaction; Pain is decreased bp Intake: 04:40 IV: 1000ml; Total: 1000ml. dc2 07:53 IV: 100ml; Total: 1100ml. ll1 07:54 IV: 20ml; Total: 1120ml. ll1 Outcome: 07:57 Discharge ordered by jrIron 08:13 Discharged to home ambulatory, with family. bp 08:13 Condition: stable 08:13 Discharge instructions given to patient, family, Instructed on discharge instructions, follow up and referral plans. medication usage, Demonstrated understanding of instructions, follow-up care, medications, Prescriptions given X 3. 08:15 Patient left the ED. bp Signatures: Dispatcher [employer] EDMelanie Mullen, RN RN Chon Burt PA PA jr8 Teo Mcmullen RN RN bp Lewis, Lynsay, RN RN ll1 Avelino Hills MD MD 7 Renan Jose tt3 Delores Randolph Mike, RN RN mr2 Kori Fritz RN RN dc2 Corrections: (The following items were deleted from the chart) 03:42 03:41 Inserted saline lock: 20 gauge in right antecubital area, using aseptic tt3 technique. Blood collected. tt3 03:43 03:38 morphine 4 mg IVP in right antecubital mr2 mr2 07:07 07:00 Reassessment: RECD REPORT. 40YO HF P/W LOWER ABDOMINAL PAIN. U/S AT B/S. bp bp
--- NOTE | 2021-04-02 07:58 | EDPHYS ---
Physician Documentation [facility] Name: Ngozi Bear Age: 40 yrs Sex: Female : 1980 Arrival Date: 04/02/2021 Time: 03:17 Bed 6 Private MD: JEANIE Physician Avelino Hills HPI: 04/02 03:40 This 40 yrs old Female presents to ER via Ambulatory with complaints of mh7 Abdominal Pain - Lower. 03:40 The patient presents with abdominal pain in the epigastric area, in the lower abdomen. mh7 Onset: The symptoms/episode began/occurred 3 day(s) ago. The symptoms do not radiate. Associated signs and symptoms: Pertinent positives: diarrhea, vomiting, one time , Pertinent negatives: anorexia, blood in stools, chest pain, constipation, dysuria, fever, headache, hematuria, palpitations, shortness of breath, vaginal discharge, vomiting blood. The symptoms are described as intermittent, vague, waxing/waning. Modifying factors: The symptoms are alleviated by nothing, the symptoms are aggravated by nothing. Severity of pain: At its worst the pain was moderate yesterday, in the emergency department the pain is unchanged. Historical: - Allergies: 03:27 No Known Allergies; dc2 - PMHx: 03:27 Anxiety; Depression; Hypertension; dc2 - Immunization history:: Adult Immunizations up to date, Client reports receiving the 2nd dose of the Covid vaccine. - Social history:: Smoking status: Patient reports the use of cigarette tobacco products, smokes one pack cigarettes per day. Patient uses alcohol, occasionally. only on a social basis. Patient/guardian denies using street drugs, IV drugs. ROS: 03:40 Constitutional: Negative for fever, chills, and weight loss, Eyes: Negative for injury, mh7 pain, redness, and discharge, ENT: Negative for injury, pain, and discharge, Neck: Negative for injury, pain, and swelling, Cardiovascular: Negative for chest pain, palpitations, and edema, Respiratory: Negative for shortness of breath, cough, wheezing, and pleuritic chest pain, Back: Negative for injury and pain, : Negative for injury, bleeding, discharge, and swelling, MS/Extremity: Negative for injury and deformity, Skin: Negative for injury, rash, and discoloration, Neuro: Negative for headache, weakness, numbness, tingling, and seizure, Psych: Negative for depression, anxiety, suicide ideation, homicidal ideation, and hallucinations, Allergy/Immunology: Negative for hives, rash, and allergies, Endocrine: Negative for neck swelling, polydipsia, polyuria, polyphagia, and marked weight changes, Hematologic/Lymphatic: Negative for swollen nodes, abnormal bleeding, and unusual bruising. Exam: 03:40 Head/Face: Normocephalic, atraumatic. Eyes: Pupils equal round and reactive to light, mh7 extra-ocular motions intact. Lids and lashes normal. Conjunctiva and sclera are non-icteric and not injected. Cornea within normal limits. Periorbital areas with no swelling, redness, or edema. Neck: Trachea midline, no thyromegaly or masses palpated, and no cervical lymphadenopathy. Supple, full range of motion without nuchal rigidity, or vertebral point tenderness. No Meningismus. Chest/axilla: Normal chest wall appearance and motion. Nontender with no deformity. No lesions are appreciated. Cardiovascular: Regular rate and rhythm with a normal S1 and S2. No gallops, murmurs, or rubs. Normal PMI, no JVD. No pulse deficits. Respiratory: Lungs have equal breath sounds bilaterally, clear to auscultation and percussion. No rales, rhonchi or wheezes noted. No increased work of breathing, no retractions or nasal flaring. 03:40 Back: No spinal tenderness. No costovertebral tenderness. Full range of motion. Skin: Warm, dry with normal turgor. Normal color with no rashes, no lesions, and no evidence of cellulitis. MS/ Extremity: Pulses equal, no cyanosis. Neurovascular intact. Full, normal range of motion. Neuro: Awake and alert, GCS 15, oriented to person, place, time, and situation. Cranial nerves II-XII grossly intact. Motor strength 5/5 in all extremities. Sensory grossly intact. Cerebellar exam normal. Normal gait. Psych: Awake, alert, with orientation to person, place and time. Behavior, mood, and affect are within normal limits. 03:40 Constitutional: The patient appears in no acute distress, alert, awake, uncomfortable. 03:40 Abdomen/GI: Inspection: obese Bowel sounds: normal, in all quadrants, Palpation: moderate abdominal tenderness, in the epigastric area, suprapubic area, right lower quadrant and left lower quadrant, mass, is not appreciated, rebound tenderness, is not appreciated, voluntary guarding, is not appreciated, involuntary guarding, is not appreciated, no appreciated organomegaly, Rectal exam: the exam is deferred, because of patient request, Indicators: McBurney's point is not tender, Jim's sign is negative, Rovsing's sign is negative, Obturator sign is negative, Psoas sign is negative, Liver: no appreciated palpable abnormalities, Hernia: not appreciated. 03:40 : CVA tenderness, is absent, Pelvic Exam: The exam is refused by the [facility] patient/guardian. The risks and consequences are understood by the patient. Vital Signs: 03:30 BP 116 / 77; Pulse 105; Resp 20; Temp 99.1; Pulse Ox 99% ; Pain 8/10; dc2 03:30 BP 116 / 77; Pulse 105; Resp 20; Temp 99.1; Pulse Ox 99% ; Weight 99.79 kg; Height 5 dc2 ft. 7 in. (170.18 cm); Pain 8/10; 07:52 BP 104 / 63; Pulse 82; Resp 17; Pulse Ox 98% ; ll1 03:30 Body Mass Index 34.46 (99.79 kg, 170.18 cm) dc2 MDM: 07:07 Patient medically screened. [facility] 07:08 Data reviewed: vital signs, nurses notes, lab test result(s), EKG, radiologic studies, [facility] CT scan, ultrasound. Data interpreted: Pulse oximetry: on room air is 99 %. Interpretation: normal. Counseling: I had a detailed discussion with the patient and/or guardian regarding: the historical points, exam findings, and any diagnostic results supporting the discharge/admit diagnosis, lab results, radiology results. 07:55 ED course: Discussed with patient that she needs to follow-up with [employer] for repeat [facility] ultrasound in the next 1 to 2 weeks. We will put her on antibiotics for the nausea, vomiting, diarrhea and clinical suspicion for PID. If patient were to worsening point time to come back for further evaluation. Patient feels comfortable with this plan at this time.. 04/02 03:34 Order name: Basic Metabolic Panel [facility] 04/02 03:34 Order name: CBC with Diff; Complete Time: 04:10 [facility] 04/02 03:34 Order name: Hepatic Function; Complete Time: 04:15 7 04/02 03:34 Order name: Lipase; Complete Time: 04:15 7 04/02 03:34 Order name: UDS; Complete Time: 04:10 7 04/02 03:34 Order name: ETOH Level; Complete Time: 05:27 7 04/02 03:34 Order name: Basic Metabolic Panel; Complete Time: 04:15 EDMS 04/02 03:38 Order name: Urine Dipstick-Ancillary MS 04/02 03:46 Order name: Urine --Ancillary (enter results); Complete Time: 04:10 tt3 04/02 04:01 Order name: CT Abd/Pelvis - IV Contrast Only [facility] 04/02 06:02 Order name: US Transvaginal Study (Probe); Complete Time: 07:55 7 04/02 03:34 Order name: IV Saline Lock; Complete Time: 03:43 [facility] 04/02 03:34 Order name: Labs collected and sent; Complete Time: 03:43 [facility] 04/02 03:34 Order name: Urine Dipstick-Ancillary (obtain specimen); Complete Time: 03:43 [facility] 04/02 03:34 Order name: Urine Test (obtain specimen); Complete Time: 03:43 [facility] 04/02 03:34 Order name: EKG; Complete Time: 03:35 7 04/02 03:34 Order name: EKG - Nurse/Tech; Complete Time: 06:54 mh7 Administered Medications: 03:38 Drug: NS 0.9% 1000 ml Route: IV; Rate: 1000 ml; Infused Over: 1 hrs; Site: right mr2 antecubital; 04:40 Follow up: IV Status: Completed infusion; IV Intake: 1000ml dc2 03:38 Drug: Zofran (Ondansetron) 4 mg Route: IVP; Site: right antecubital; mr2 04:15 Follow up: Response: Nausea is decreased dc2 03:38 Drug: Pepcid (famotidine) 20 mg Route: IVP; Site: right antecubital; mr2 04:15 Follow up: Response: No adverse reaction dc2 03:44 Not Given (Other Intervention Used): morphine 4 mg IVP once; RASS on ADMIN: Combtv4, mr2 Very Agttd3, Agttd2, Rstlss1, AlertClm0, Drwsy-1, Lt Sdtn-2, Mod Sdtn-3, Dp Sdtn-4, UnArsble-5 03:50 Drug: Dilaudid (HYDROmorphone) 0.5 mg Route: IVP; Site: right antecubital; mr2 04:30 Follow up: Response: Pain is decreased dc2 06:35 Drug: Dilaudid (HYDROmorphone) 0.5 mg Route: IVP; Site: right antecubital; mr2 07:53 Follow up: Response: No adverse reaction; RASS: Alert and Calm (0) ll1 06:48 Drug: Flagyl (metroNIDAZOLE) 500 mg Volume: 100 ml; Route: IVPB; Rate: 200 ml/hr; mr2 Infused Over: 30 mins; Site: right antecubital; 07:53 Follow up: Response: No adverse reaction; IV Status: Completed infusion; IV Intake: ll1 100ml 06:49 Drug: Rocephin (cefTRIAXone) 1 grams Route: IV; Rate: per protocol; Site: right mr2 antecubital; 07:54 Follow up: Response: No adverse reaction; IV Status: Completed infusion; IV Intake: [id number] 07:25 Drug: Potassium Chloride 40 mEq Route: PO; iw 07:54 Follow up: Response: No adverse reaction ll1 07:53 Drug: Dilaudid (HYDROmorphone) 0.5 mg Route: IVP; Site: right antecubital; ll1 08:15 Follow up: Response: No adverse reaction; Pain is decreased bp Disposition Summary: 04/02/21 07:57 Discharge Ordered Location: Home jr8 Problem: new jr8 Symptoms: have improved jr8 Condition: Stable jr8 Diagnosis - Lower abdominal pain, unspecified jr8 Followup: jr8 - With: Private Physician - When: 1 week - Reason: Recheck today's complaints, Continuance of care, Re-evaluation by your physician Discharge Instructions: - Discharge Summary Sheet jr8 - Abdominal Pain, Adult jr8 Forms: - Work release form iw - Medication Reconciliation Form jr8 - Thank You Letter jr8 - Antibiotic Education jr8 - Prescription Opioid Use jr8 Prescriptions: - Cipro 500 mg Oral Tablet - take 1 tablet by ORAL route every 12 hours for 10 days; 20 tablet; Refills: 0, jr8 Product Selection Permitted - Zofran 4 mg Oral Tablet - take 1 tablet by ORAL route every 12 hours As needed; 20 tablet; Refills: 0, jr8 Product Selection Permitted - Doxycycline Hyclate 100 mg Oral Tablet - take 1 tablet by ORAL route every 12 hours; 20 tablet; Refills: 0, Product jr8 Selection Permitted Signatures: Dispatcher [employer] EDMelanie Mullen RN RN iw Chon Lei PA PA jr8 Lu Agrawal RN RN ll1 Avelino Hills MD MD 7 Tony Almodovar RN RN mr2 Kori Fritz RN RN dc2 Teo Mcmullen RN
[2021-04-02 08:25] VITALS: TEMP 99.1
[2021-04-02 08:26] VITALS: BP 104/63; O2SAT 98
--- NOTE | 2021-04-02 10:11 | RAD REPORT ---
EXAM DESCRIPTION: CT - Abdomen Pelvis W Contrast - 04/02/2021 6:28 am CLINICAL HISTORY: The patient is 40 years old and is Female; Diarrhea;Abd pain TECHNIQUE: Axial computed tomography images of the abdomen and pelvis with intravenous contrast. S agittal and coronal reformatted images were created and reviewed. This CT exam was performed using one or more of the following dose reduction techniques: automated exposure control, adjustment of t he mA and/or kV according to patient size, and/or use of iterative reconstruction technique. COMPARISON: No relevant prior studies available. FINDINGS: Lung bases: Unremarkable. No mass. No consolidation. ABDOMEN: Liver: Unremarkable. No mass. Gallbladder and bile ducts: Unremarkable. No calcified stones. No ductal dilation. Pancreas: Unremarkable. No mass. No ductal dilation. Spleen: Unremarkable. No splenomegaly. Adrenals: Unremarkable. No mass. Kidneys and ureters: Unremarkable. No solid mass. No hydronephrosis. Stomach and bowel: There is fluid in the proximal colon consistent with a history of diarrhea. Mild mesenteric fat stranding surrounding some of the small bowel. No bowel wall thickening o r dilation. PELVIS: Appendix: No findings to suggest acute appendicitis. Bladder: Unremarkable. No mass. Reproductive: Heterogeneous appearance to the lower uterine segment/cervix. There is a 3.6 x 3.8 x 8.9 cm heterogeneous fluid collection along the posterior aspect of th e uterus. ABDOMEN and PELVIS: Intraperitoneal space: See below. Bones/joints: No acute fracture. No dislocation. Soft tissues: Scattered mesenteric edema in the mid abdomen with a small amount of fluid tracking down along the left paracolic gutter. Vasculature: Unremarkable. No abdominal aortic aneurysm. Lymph nodes: Unremarkable. No enlarged lymph nodes. Other findings: Clips in the right lower quadrant. IMPRESSION: 1. Heterogeneous appearance to the lower uterine segment/cervix. 2. There is a 3.6 x 3.8 x 8.9 cm heterogeneous fluid collection along the posterior aspect of the u terus. Finding may represent a complex adnexal cyst. There is also the suggestion of multiple right ovarian/adnexal cysts. Consider pelvic ultrasound for further evaluation if clinically indicated. 3. There is fluid in the proximal colon consistent with a history of diarrhea. 4. Mild mesenteric fat stranding surrounding some of the small bowel. No bowel wall thickening or d ilation. 5. Scattered mesenteric edema in the mid abdomen with a small amount of fluid tracking down along t he left paracolic gutter. Electronically signed by: Reid Padilla MD 04/02/2021 5:41 AM [employer] APPRENTICE Due to temporary technical issues with the PACS/Fluency reporting system, reports are being signed by the in house radiologists without review as a courtesy to insure prompt reporting. The interpreting radiologist is fully responsible for the content of the report.
--- NOTE | 2021-04-04 11:28 | EKG ---
Test Date: 2021-04-02 Test Time: 06:52:49 Clinical Specialist Vascular: ANTONIO MEASUREMENT RESULTS: Intervals: Rate: 86 IL: 146 QRSD: 90 QT: 396 QTc: 473 Golden: P: 26 IL: 146 QRS: 29 T: -4 INTERPRETIVE STATEMENTS: Normal sinus rhythm T wave abnormality, consider anterior ischemia Prolonged QT Abnormal ECG Compared to ECG 09/17/2020 12:55:24 Possible ischemia now present T-wave abnormality still present Electronically Signed On 04-04-21 11:21:05 [employer] SUPERVISOR by Julio C Cartwright
--- OUTSIDE RECORDS SUMMARY | 2021-04-07 16:15 | XMS REPORT | Continuity of Care Document ---
:1980 Author Organization [facility] t Address [address] [place] [address] Care Team Providers Name Role Phone Kelly Carrillo RN Attending Clinician Kelly Nj Attending Clinician Payers Payer Name Policy Type Policy Number Effective Date Expiration Date S ource Problems Condition Condition Condition Status Onset Resolution Last Treating Co mments Source Name Details Category Date Date Treatment Clinician Date Morbid Morbid Disease Active 2018-05 Univers obesity obesity 1-30 [place]y of [place] index 00 [place] dical of of Branch 40.0-49.9 40.0-49.9 Anxiety Anxiety Disease Active 2018-05 Univers 1-30 ity of 00:00: [address] Cigarette Cigarette Disease Active 2018-05 Uni vers smoker smoker 1-30 ity of 00:00: [address] Chest pain Chest pain Disease Active 2018-05 U nivers 1-29 ity of 00:00: [address] Allergies, Adverse Reactions, Alerts This patient has no known allergies or adverse reactions. Social History Social Habit Start Date Stop Date Quantity Comments Source Sex Assigned At [facility] [place] [facility] Std [place] [facility] Binge [place] [facility] Tobacco Comment 2019-04-28 2019-04-28 1 cigarrettes a Univ ersity of 00:00:00 00:00:00 day [facility] [place] [facility] Alcohol intake 2019-04-28 2019-04-28 University of 00:00:00 00:00:00 [place] [facility] History SDOH 2019-04-28 2019-04-28 3 University o f Alcohol Frequency 00:00:00 00:00:00 [place] [facility] History [facility] Food 2019-04-26 2019-04-26 2 Univers ity of Scarcity 00:00:00 00:00:00 [facility] [place] [facility] History [facility] 2019-04-26 2019-04-26 2 University o f Transport Med 00:00:00 00:00:00 [place] [facility] History [facility] 2019-04-26 2019-04-26 2 University o f Transport Non-Med 00:00:00 00:00:00 [place] [facility] History [facility] 2019-04-26 2019-04-26 11 University o f Education 00:00:00 00:00:00 [facility] History [facility] 2019-04-26 2019-04-26 5 University o f Financial 00:00:00 00:00:00 [facility] History [facility] Food 2019-04-26 2019-04-26 2 Univers ity of Worry 00:00:00 00:00:00 [facility] Smoking Status Start Date Stop Date Source Current every day smoker 2019-04-28 00:00:00 Uni versity [facility] Medications Ordered Filled Start Stop Current Ordering Indication Dosage Frequency Signature Comments Components Source Medication Medication Date Date Medication? Clinician (SIG) Name Name No known No [facility] No [facility] medications [facility] Immunizations Ordered Filled Immunization Date Status Comments Sourc e Immunization Name Name Influenza Virus 2019-04-24 Completed Universit y of Vaccine Quad .5 mL 00:00:00 [facility] IM 6+ MO Branch Influenza Virus 2019-04-24 Completed Universit y of Vaccine Quad .5 mL 00:00:00 [facility] 6+ [place] Branch Procedures This patient has no known procedures. Encounters Start End Encounter Admission Attending Care Care Encounter Source Date/Time Date/Time Type Type Clinicians Facility Department ID 2019-06-16 2019-06-16 Patient Coral Carrillo [id number] 00:00:00 00:00:00 Outreach [place] [id number] [place] [id number] 2019-06-16 2019-06-16 Patient Coral Carrillo [id number] Univers 00:00:00 00:00:00 Outreach E [place] [id number] i [id number] [address] Branch 2019-06-08 2019-06-08 Patient Thiago Nj [id number] 00:00:00 00:00:00 Outreach Bing E [place] [id number] [place] [id number] [facility] 2019-06-08 2019-06-08 Patient Thiago [place] [id number] Univers 00:00:00 00:00:00 Outreach Bing [place] [id number] [id number] [id number] [place] [address] Branch Results This patient has no known results.
== END 2021-04-02 08:15 | disposition home or self-care (01) ==
LOC: ER 03:12
DX: R10.30 Lower abdominal pain, unspecified (principal); I10 Essential (primary) hypertension; F17.210 Nicotine dependence, cigarettes, uncomplicated
CPT/HCPCS: 36415; 74177; 76830; 80048; 80076; 80307; 80320; 81003; 81025; 83690; 85025; 93005; 96361; 96365; 96375; 99285; J1170; J2405; J7030; Q9967

== ENCOUNTER → 2023-06-05 | Emergency (ER) | payer BC ==
[~2023-06-05] MED LIST: MECLIZINE HCL 12.5 MG TAB ONE
--- OUTSIDE RECORDS SUMMARY | 2023-06-05 08:46 | XMS REPORT | Continuity of Care Document ---
Author Name Unknown Address [address] [facility] [address] [place] [address] [facility] Address [address] [facility] [place] [address] Care Team Providers Care Sorting Grapple Operator Name Role Phone RACIEL STANLEY Primary Care Physician Unav ailable NATHAN_GCBZW_Germán_S Attending Clinician UnavailCoral Rangel RN E Attending Clinician [phone] Bing Nj Attending Clinician [phone] IVÁN PAUL Attending Clinician Unavailable NATHAN_GCBZW_Germán_S Admitting Clinician UnavailIVÁN Smith Admitting Clinician Unavailable Payers Payer Name Policy Type Policy Number Effective Date Expirati on Date Source Problems Condition Name Condition Details Condition Category Status Onset Date Resolution Date Last Treatment Date Treating Clinician Comments Source Morbid obesity with body mass index of 40.0-49.9 Morbid obesity with body mass index of 40.0-49.9 Disease Active 2018-05 00:00: 00 [facility] Anxiety Anxiety Disease Active 2018-05 00:00: 00 [facility] Cigarette smoker Cigarette smoker Disease Active 2018-05 00:00: 00 [facility] Chest pain Chest pain Disease Active 2018-05 00:00: 00 [facility] Allergies, Adverse Reactions, Alerts Allergy Name Allergy Type Status Severity Reaction(s) Onset Date Inactive Date Treating Clinician Comments Source NO KNOWN ALLERGIE S Drug Class Active [facility] Branch Social History Social Habit Start Date Stop Date Quantity Comments Source Sex Assigned At [facility] History SDOH Alcohol Std Drinks [facility] History SDOH Alcohol Binge [facility] Tobacco Comment 2019-04-28 00:00:00 2019-04-28 00:00:00 1 cigarrettes a day [facility] Alcohol intake 2019-04-28 00:00:00 2019-04-28 00:00:00 [facility] History SDOH Alcohol Frequency 2019-04-28 00:00:00 2019-04-28 00:00:00 3 [facility] History SDOH Food Scarcity 2019-04-26 00:00:00 2019-04-26 00:00:00 2 [facility] History SDOH Transport Med 2019-04-26 00:00:00 2019-04-26 00:00:00 2 [facility] History SDOH Transport Non-Med 2019-04-26 00:00:00 2019-04-26 00:00:00 2 [facility] History SDOH Education 2019-04-26 00:00:00 2019-04-26 00:00:00 11 [facility] History SDOH Financial 2019-04-26 00:00:00 2019-04-26 00:00:00 5 [facility] History SDOH Food Worry 2019-04-26 00:00:00 2019-04-26 00:00:00 2 [facility] Smoking Status Start Date Stop Date Source Current every day smoker 2019-04-28 00:00:00 [facility] Medications Ordered Medication Name Filled Medication Name Start Date Stop Date Current Medication? Ordering Clinician Indication Dosage Frequency Signature (SIG) Comments Components Source No known medications No Un john [facility] No known medications No Un john [facility] Encounters Start Date/Time End Date/Time Encounter Type Admission Type Attending Clinicians Care Facility Care Department Encounter ID Source 2023-03-25 00:00:00 2023-03-25 00:00:00 Outpatient GC_GCBZW_Ka diyala_S PRIV PRIV [id number] [facility] 2023-03-24 00:00:00 2023-03-24 00:00:00 Outpatient GC_GCBZW_Ka diyala_S [facility] [id number] [facility] 2019-06-16 00:00:00 2019-06-16 00:00:00 Patient Outreach Coral Carrillo [id number] 2019-06-16 00:00:00 2019-06-16 00:00:00 Patient Outreach Coral Carrillo [id number] [facility] 2019-06-08 00:00:00 2019-06-08 00:00:00 Patient Outreach Bing Nj [id number] [facility] 2019-06-08 00:00:00 2019-06-08 00:00:00 Patient Outreach Bing Nj [id number] 2019-04-26 10:17:29 2019-04-28 16:00:00 Outpatient X IVÁN PAUL [facility] [id number] [facility]
--- NOTE | 2023-06-05 10:17 | RAD REPORT ---
EXAM DESCRIPTION: CT - Head Brain Wo Cont - 06/05/2023 9:32 am CLINICAL HISTORY: Dizziness COMPARISON: None TECHNIQUE: Computed axial tomography of the head was obtained. IV contrast was not requested. All CT scans are performed using dose optimization technique as appropriate and may include automated exposure control or mA/KV adjustment according to patient size. FINDINGS: An intracranial bleed is not seen The ventricles are normal in caliber No extra-axial fluid collection is noted. A 3 millimeter calcification right temporal lobe may be a cavernous angioma or the sequela prior inf lammation Complete opacification left mastoids. Moderate sphenoid sinusitis IMPRESSION: No acute intracranial abnormality is seen Complete opacification left mastoids may indicate mastoiditis Sphenoid sinusitis If patient's symptoms persist MRI of the brain would be recommended
--- NOTE | 2023-06-05 10:25 | EDPHYS ---
Physician Documentation [facility] Name: Ngozi Bear Age: 43 yrs Sex: Female : 1980 Arrival Date: 06/05/2023 Time: 08:42 Bed 5 Private MD: ED Physician Chioma Sifuentes HPI: 06/05 09:13 This 43 yrs old Female presents to ER via Ambulatory with complaints of sp3 Dizziness, head pounding/tingles. 09:13 43-year-old female with history of hypertension, anxiety now presents to the ED with sp3 chief complaint dizziness/vertigo and decreased hearing in the left ear. Symptoms started yesterday morning. Patient has been out of her blood pressure medications with the last refill from the ER here last year. She has been inconsistent with taking those medications. Patient then took "a blood pressure medicine" from her friend. She does not recall what that medicine was or what the dose was. That occurred at 6:30 AM this morning. Currently patient has vertigo symptoms which she states increases when she moves her head. She denies headache, neck pain, fever, congestion, sore throat, cough, shortness of breath, chest pain, back pain, abdominal pain, nausea, vomiting, diarrhea, known sick contacts, travel history, prolonged exposure to underwater environment, or any other signs or symptoms on ROS at this time.. Historical: - Allergies: 09:06 No Known Allergies; aa5 - PMHx: 09:06 Anxiety; Depression; Hypertension; aa5 - Immunization history:: Adult Immunizations up to date. - Social history:: Smoking status: Patient denies any tobacco usage or history of. ROS: 09:15 Constitutional: Negative for fever, chills, and weight loss, Eyes: Negative for injury, sp3 pain, redness, and discharge, Neck: Negative for injury, pain, and swelling, Cardiovascular: Negative for chest pain, palpitations, and edema, Respiratory: Negative for shortness of breath, cough, wheezing, and pleuritic chest pain, Abdomen/GI: Negative for abdominal pain, nausea, vomiting, diarrhea, and constipation, Back: Negative for injury and pain, MS/Extremity: Negative for injury and deformity, Skin: Negative for injury, rash, and discoloration, Psych: Negative for depression, anxiety, suicide ideation, homicidal ideation, and hallucinations, Allergy/Immunology: Negative for hives, rash, and allergies, Endocrine: Negative for neck swelling, polydipsia, polyuria, polyphagia, and marked weight changes, Hematologic/Lymphatic: Negative for swollen nodes, abnormal bleeding, and unusual bruising, 09:15 All other systems are negative, Exam: 09:15 Constitutional: This is a well developed, well nourished patient who is awake, alert, sp3 and in no acute distress. Head/Face: Normocephalic, atraumatic. Eyes: Pupils equal round and reactive to light, extra-ocular motions intact. Lids and lashes normal. Conjunctiva and sclera are non-icteric and not injected. Cornea within normal limits. Periorbital areas with no swelling, redness, or edema. Neck: Trachea midline, no thyromegaly or masses palpated, and no cervical lymphadenopathy. Supple, full range of motion without nuchal rigidity, or vertebral point tenderness. No Meningismus. Chest/axilla: Normal chest wall appearance and motion. Nontender with no deformity. No lesions are appreciated. Cardiovascular: Regular rate and rhythm with a normal S1 and S2. No gallops, murmurs, or rubs. Normal PMI, no JVD. No pulse deficits. Respiratory: Lungs have equal breath sounds bilaterally, clear to auscultation and percussion. No rales, rhonchi or wheezes noted. No increased work of breathing, no retractions or nasal flaring. Abdomen/GI: Soft, non-tender, with normal bowel sounds. No distension or tympany. No guarding or rebound. No evidence of tenderness throughout. Back: No spinal tenderness. No costovertebral tenderness. Full range of motion. Skin: Warm, dry with normal turgor. Normal color with no rashes, no lesions, and no evidence of cellulitis. MS/ Extremity: Pulses equal, no cyanosis. Neurovascular intact. Full, normal range of motion. Psych: Awake, alert, with orientation to person, place and time. Behavior, mood, and affect are within normal limits. 09:15 ENT: Patient has serous effusion with 30% coverage of her left tympanic membrane. No erythema noted.. 09:15 Neuro: Horizontal nystagmus inducible. Remainder of neurological exam is normal., Vital Signs: 08:58 BP 144 / 90; Pulse 109; Resp 18 S; Temp 98.2(O); Pulse Ox 97% on R/A; Weight 90.72 kg aa5 (R); Height 4 ft. 11 in. (R); 09:42 BP 142 / 88; Pulse 102; Resp 15; Pulse Ox 98% ; ko1 10:29 BP 138 / 72; Pulse 99; Resp 15; Pulse Ox 98% ; ko1 08:58 Body Mass Index 40.39 (90.72 kg, 149.86 cm) aa5 MDM: 09:01 Patient medically screened. sp3 09:16 Data reviewed: vital signs, nurses notes, radiologic studies. ED course: 43-year-old sp3 female with vertigo and left ear decrease in hearing. Consider peripheral versus central vertigo. Clinically I have a low suspicion for central vertigo and we will obtain CT scan to rule out any sort of space-occupying lesion. Will recommend Sudafed OTC and I will prescribe meclizine as well as a blood pressure agent after we find out what her last agent was. She states she is in the process of finding a primary care physician and will follow-up with them.. 10:24 ED course: CT scan demonstrates sinusitis and mastoiditis. We will treat with Augmentin sp3 in addition to the above medications.. 06/05 09:13 Order name: CT Head Brain wo Cont; Complete Time: 10:23 sp3 Administered Medications: 09:19 Drug: Meclizine PO 25 mg PO once Route: PO; ko1 10:30 Follow up: Response: No adverse reaction ko1 Disposition Summary: 06/05/23 10:24 Discharge Ordered Notes: Location: Home sp3 Condition: Stable sp3 Diagnosis - Vertigo, sinusitis, mastoiditis, hypertension sp3 Followup: sp3 - With: Private Physician - When: Upon discharge from the Emergency Department - Reason: Continuance of care Discharge Instructions: - Discharge Summary Sheet sp3 - Sinusitis, Adult sp3 - Vertigo sp3 Forms: - Medication Reconciliation Form sp3 - Thank You Letter sp3 - Antibiotic Education sp3 - Prescription Opioid Use sp3 - Patient Portal Instructions sp3 - Leadership Thank You Letter sp3 Prescriptions: - Augmentin 875-125 mg Oral Tablet - take 1 tablet ORAL route every 12 hours for 10 days; 20 tablet; Refills: 0, sp3 Product Selection Permitted - Meclizine 25 mg Oral Tablet - take 1 tablet ORAL route every 8 hours As needed; 30 tablet; Refills: 0, sp3 Product Selection Permitted - Hydrochlorothiazide 25 mg Oral Tablet - take 1 tablet ORAL route once daily .; 30 tablet; Refills: 0, Product Selection sp3 Permitted Signatures: Dispatcher [employer] Suzan Martini RN RN aa5 Ignacia Bennett RN RN ld1 Chioma Sifuentes MD MD sp3 Tala Cruz RN RN ko1
--- NOTE | 2023-06-05 10:25 | ER ---
Nurse's Notes [facility] Name: Ngozi Bear Age: 43 yrs Sex: Female : 1980 Arrival Date: 06/05/2023 Time: 08:42 Bed 5 Private MD: Diagnosis: Vertigo, sinusitis, mastoiditis, hypertension Presentation: 06/05 08:58 Chief complaint: Patient states: dizziness since yesterday and worse today,pt states aa5 "my head feels like pressure and like it's tingling". 08:58 Coronavirus screen: At this time, the client does not indicate any symptoms associated aa5 with coronavirus-19. Ebola Screen: Patient denies travel to an Ebola-affected area in the 21 days before illness onset. Initial Sepsis Screen: Does the patient meet any 2 criteria? HR > 90 bpm. Does the patient have a suspected source of infection? No. Patient's initial sepsis screen is negative. Risk Assessment: Do you want to hurt yourself or someone else? Patient reports no desire to harm self or others. Onset of symptoms was May 2023. 08:58 Acuity: ALEXIA 3 aa5 08:58 Method Of Arrival: Ambulatory aa5 Historical: - Allergies: 09:06 No Known Allergies; aa5 - PMHx: 09:06 Anxiety; Depression; Hypertension; aa5 - Immunization history:: Adult Immunizations up to date. - Social history:: Smoking status: Patient denies any tobacco usage or history of. Screenin:29 [facility] ED Fall Risk Assessment (Adult) History of falling in the last 3 months, ld1 including since admission No falls in past 3 months (0 pts). Abuse screen: Denies threats or abuse. Denies injuries from another. Nutritional screening: No deficits noted. Tuberculosis screening: No symptoms or risk factors identified. Assessment: 09:29 General: Appears in no apparent distress. comfortable, Behavior is calm, cooperative, ld1 appropriate for age. Pain: Denies pain. Neuro: Level of Consciousness is awake, alert, obeys commands, Oriented to person, place, time, situation. Neuro: Reports dizziness, headache. Cardiovascular: Capillary refill < 3 seconds Patient's skin is warm and dry. Respiratory: Airway is patent Respiratory effort is even, unlabored. GI: Abdomen is flat, non-distended. : No signs and/or symptoms were reported regarding the genitourinary system. EENT: No signs and/or symptoms were reported regarding the EENT system. Derm: No signs and/or symptoms reported regarding the dermatologic system. Musculoskeletal: No signs and/or symptoms reported regarding the musculoskeletal system. Vital Signs: 08:58 BP 144 / 90; Pulse 109; Resp 18 S; Temp 98.2(O); Pulse Ox 97% on R/A; Weight 90.72 kg aa5 (R); Height 4 ft. 11 in. (R); 09:42 BP 142 / 88; Pulse 102; Resp 15; Pulse Ox 98% ; ko1 10:29 BP 138 / 72; Pulse 99; Resp 15; Pulse Ox 98% ; ko1 08:58 Body Mass Index 40.39 (90.72 kg, 149.86 cm) aa5 ED Course: 08:44 Patient arrived in ED. im 08:58 Chioma Sifuentes MD is Attending Physician. sp3 08:58 Arm band placed on. aa5 09:08 Tala Cruz, NEVAEH is Primary Nurse. ko1 09:08 Triage completed. aa5 09:29 Patient has correct armband on for positive identification. Placed in gown. Bed in low ld1 position. Call light in reach. Side rails up X2. Pulse ox on. NIBP on. Door closed. Noise minimized. Warm blanket given. 09:29 No provider procedures requiring assistance completed. ld1 09:33 CT Head Brain wo Cont In Process Unspecified. EDMS 10:29 Provided Education on: na. ko1 10:29 Patient did not have IV access during this emergency room visit. ko1 Administered Medications: 09:19 Drug: Meclizine PO 25 mg PO once Route: PO; ko1 10:30 Follow up: Response: No adverse reaction ko1 Medication: 10:29 VIS not applicable for this client. ko1 Outcome: 10:24 Discharge ordered by . sp3 10:36 Discharged to home ambulatory, ko1 10:36 Condition: stable 10:36 Discharge instructions given to patient, Instructed on discharge instructions, follow up and referral plans. medication usage, Demonstrated understanding of instructions, follow-up care, medications, Prescriptions given X 3, 10:37 Patient left the ED. ko1 Signatures: Dispatcher [employer] EDMS Suzan Weinstein, RN RN aa5 Ignacia Bennett, RN RN ld1 Chioma Sifuentes MD MD sp3 Tala Cruz, RN RN ko1 Tamara Sanchez
[2023-06-05 13:59] VITALS: BP 138/72; TEMP 98.2; O2SAT 98
== END ==
LOC: ER 08:42
DX: J32.9 Chronic sinusitis, unspecified (principal); H70.90 Unspecified mastoiditis, unspecified ear; I10 Essential (primary) hypertension
CPT/HCPCS: 70450; 99284; J8597